=== PATIENT | female | born 1950 | race Caucasian/White ===

== ENCOUNTER 2020-01-22 07:59 | Outpatient (REF) | payer OTHER, SELFPAY ==
[2020-01-22 10:31] LABS: Cholesterol 199 mg/dL; HDL Cholesterol 58 mg/dL; LDL Cholesterol Calculated 121 mg/dl; Triglycerides 102 mg/dL
== END 2020-01-22 08:00 | disposition home or self-care (01) ==
LOC: HO.10HDL 07:59
PROVIDERS: Visit Provider Internal Medicine
DX: E78.5 Hyperlipidemia, unspecified (principal)
CPT/HCPCS: 80061; 84443

== ENCOUNTER 2020-05-04 08:17 | Outpatient (REF) | payer OTHER, SELFPAY ==
[2020-05-04 10:59] LABS: Thyroid Stimulating Hormone 4.64 uIU/mL (0.32-4.0)
[2020-05-04 12:40] LABS: Cholesterol 197 mg/dL; HDL Cholesterol 54 mg/dL; LDL Cholesterol Calculated 119 mg/dl; Triglycerides 120 mg/dL
== END 2020-05-04 08:18 | disposition home or self-care (01) ==
LOC: HO.10HDL 08:17
PROVIDERS: Visit Provider Internal Medicine
DX: E78.5 Hyperlipidemia, unspecified (principal)
CPT/HCPCS: 36415; 80061; 84443

== ENCOUNTER → 2020-05-22 08:00 | Outpatient (BNVA) | payer OTHER, SELFPAY | PROVIDERS: PCP Internal Medicine; Visit Provider Advanced Practice Midwife ==

== ENCOUNTER 2020-08-05 08:07 | Outpatient (REF) | payer OTHER, SELFPAY ==
[2020-08-05 10:47] LABS: Cholesterol 191 mg/dL; HDL Cholesterol 49 mg/dL; LDL Cholesterol Calculated 119 mg/dl; Triglycerides 115 mg/dL
[2020-08-05 11:09] LABS: Thyroid Stimulating Hormone 1.69 uIU/mL (0.32-4.0)
== END 2020-08-05 08:08 | disposition home or self-care (01) ==
LOC: HO.10HDL 08:07
PROVIDERS: Visit Provider Internal Medicine
DX: E11.9 Type 2 diabetes mellitus without complications (principal); E03.9 Hypothyroidism, unspecified
CPT/HCPCS: 36415; 80061; 84443

== ENCOUNTER 2020-08-10 11:09 | Outpatient (REF) | payer OTHER, SELFPAY ==
--- NOTE | ~2020-08-10 | XR_ITS ---
EXAMINATION: XR HIP, RIGHT CLINICAL INFORMATION: Pain COMPARISON: None TECHNIQUE: Two views of the right hip. FINDINGS: Bone alignment is normal. No fracture or dislocation is seen. There is mild arthritis of the right hip joint with small osteophytes. There is soft tissue calcification or ossification adjacent to the right greater trochanter. XR/XR hip RT min 2V IMPRESSION: Mild arthritis and soft tissue calcification or ossification adjacent to the right greater trochanter suggestive of changes related to old soft tissue trauma or calcific tendinitis.
== END 2020-08-10 11:10 | disposition home or self-care (01) ==
LOC: HO.XRAY 11:09
PROVIDERS: PCP Internal Medicine; Visit Provider Internal Medicine
DX: M25.551 Pain in right hip (principal)
CPT/HCPCS: 73502

== ENCOUNTER 2020-09-10 10:29 | Outpatient (REF) | payer OTHER, SELFPAY ==
--- NOTE | ~2020-09-10 | XR_ITS ---
EXAMINATION: XR PELVIS CLINICAL INFORMATION: Pain COMPARISON: 08/10/2020. TECHNIQUE: AP view of the pelvis. FINDINGS: No displaced fracture. Mild to moderate cartilage space loss in both hips with some mild bony spurring. Some calcific/ossific densities over the right greater trochanter, similar to prior which could represent sequelae of prior trauma or calcific tendinosis. XR/XR pelvis 1-2V IMPRESSION: Mild to moderate degenerative changes in both hips.
== END 2020-09-10 10:30 | disposition home or self-care (01) ==
LOC: HO.HOSX 10:29
PROVIDERS: Visit Provider Orthopaedic Surgery
DX: M76.891 Other specified enthesopathies of right lower limb, excluding foot (principal); M53.3 Sacrococcygeal disorders, not elsewhere classified; M25.551 Pain in right hip
CPT/HCPCS: 72170

== ENCOUNTER 2020-11-04 07:44 | Outpatient (REF) | payer OTHER, SELFPAY ==
[2020-11-04 10:24] LABS: MANUAL DIFF FLAG NO
[2020-11-04 10:28] LABS: Basophils Percent Auto 0.8 % (0-2); Eosinophils Absolute Auto 0.1 X10*3/uL (0.0-0.4); Eosinophils Percent Auto 1.9 % (0-4); Hematocrit 43.1 % (37-47); Hemoglobin 14.6 g/dl (12.0-16.0); Imm Gran Abs Auto 0.01 X10*3/uL (0.00-0.03); Imm Gran Pct Auto 0.2 % (0.0-0.4); Lymphocytes Absolute Auto 1.6 X10*3/uL (1.2-4.9); Lymphocytes Percent Auto 31.9 % (20-40); Mean Corpuscular HGB Conc 33.9 g/dl (31.0-35.0); Mean Corpuscular Hemoglobin 32.4 pg (27.0-33.0); Mean Corpuscular Volume 95.8 fL (80-98); Mean Platelet Volume 10.3 fL (9.4-12.3); Monocytes Absolute Auto 0.4 X10*3/uL (0.1-1.2); Neutrophils Absolute Auto 2.9 X10*3/uL (2.0-8.3); Neutrophils Percent Auto 57.2 % (45-73); Platelet Count 205 X10*3/uL (160-400); Red Cell Distribution Width 11.6 % (11.0-16.0); White Blood Count 5.1 X10*3/uL (4.8-10.8)
[2020-11-04 10:42] LABS: Alanine Aminotransferase 15 U/L (0-31); Albumin Level 4.1 g/dL (3.5-5.0); Alkaline Phosphatase 105 U/L (39-117); Anion Gap 11 (12-20); Aspartate Amino Transferase 22 U/L (5-31); Bilirubin Total 0.7 mg/dL (0.0-1.0); Blood Urea Nitrogen 16 mg/dL (9-16); Calcium 9.4 mg/dL (8.4-10.2); Carbon Dioxide 30 mmol/L (22-29); Chloride 104 mmol/L (96-108); Cholesterol 195 mg/dL; Estimated Glomerular Filt Rate > 60; Glucose Fasting 87 mg/dL (60-99); HDL Cholesterol 59 mg/dL; LDL Cholesterol Calculated 116 mg/dl; Potassium 4.7 mmol/L (3.3-5.1); Sodium 140 mmol/L (135-145); Total Protein 6.8 g/dL (6.5-8.0); Triglycerides 100 mg/dL
[2020-11-04 11:03] LABS: Thyroid Stimulating Hormone 1.85 uIU/mL (0.32-4.0)
== END 2020-11-04 07:45 | disposition home or self-care (01) ==
LOC: HO.10HDL 07:44
PROVIDERS: Visit Provider Internal Medicine
DX: Z00.00 Encounter for general adult medical examination without abnormal findings (principal); E03.9 Hypothyroidism, unspecified; E11.9 Type 2 diabetes mellitus without complications
CPT/HCPCS: 36415; 80053; 80061; 84443; 85025

== ENCOUNTER 2020-11-17 11:00 | Outpatient (RCR) | payer OTHER, SELFPAY ==
--- NOTE | 2020-09-25 09:22 | MHC.PT.EP ---
[facility] [place] Office [place] Office [place] Office [address] Miguel Ramirez [address] [phone] F: [phone] F: [phone] F: [phone] F: [phone] Physical Therapy Plan of Care Date of Evaluation: Date of Surgery: N/A Diagnosis: sacroiliitis Assessment: pt's pain appears to be related d/t poor pelvic alignment and muscular imbalance causing SI dysfunction and pain. pt presents to physical therapy with pain, decreased range of motion, decreased strength, impaired functional mobility, impaired postural awareness, and gait deviations. pt is a good candidate for skilled PT due to age, potential remediation of impairments, typical disease/condition progression and prognosis, comorbidities, and motivation. pt would benefit from tailored strengthening and stretching exercise program, functional training, gait training, postural re-training, neuromuscular re-education, modalities as needed for pain, equipment safety demonstration. Frequency and Duration: The patient will be seen 2x/wk for 4 wks Short Term Goals: pt will be I w/ HEP to promote self-management of condition. pt will improve L hip flexion strength by 1 MMT grade to promote ease in ascending stairs. Alf Goals: pt will ascend/descend 13 stairs w/ <1/10 R SI pain w/ LRAD to promote ease in accessing basement for laundry. pt will report a statistically significant improvement in self-reported outcome measure, Merle, to promote return to PLOF. Treatment Plan: Modalities to reduce pain, spasms and effusion. Manual therapy to restore motion and function. Therapeutic exercise to improve strength and flexibility. Neuromuscular re-education for posture and balance. Therapeutic activities to return to functional activities of daily living. Electronically signed by: Margie Roque PT, DPT Please sign and return to therapist. Thank you for your referral.
--- NOTE | 2020-11-17 13:53 | MHC.PT.DC ---
[facility] [place] Office [place] Office [place] Office [address] 140 [facility] [phone] F: [phone] F: [phone] F: [phone] F: [phone] Physical Therapy Discharge Report Diagnosis: sacroiliitis Date of Surgery: N/A Date of Evaluation: 09/25/20 Date of Discharge: 11/17/20 Treatments to Date: 14 Cancellations to Date: 2 No Shows to Date: 0 Discharge Status: Improved Function Independent with HEP Discharge Summary: The patient overall reports an improvement in her pain severity, frequency, and ability to tolerate 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 She is able to ambulate longer distances without pain. She still has some pain provocation with lifting heavier objects and garden care activities. She is independent with her home exercise program. She was advised to continue with HEP at home for one month and to return if she finds she has plateaued or regressed. She is discharged from this physical therapy plan of care at this time. Electronically signed by: Margie Roque PT, DPT Please sign and return to therapist. Thank you for your referral.
== END 2020-11-17 13:54 | disposition home or self-care (01) ==
LOC: HO.PT 11:00
PROVIDERS: PCP Internal Medicine; Visit Provider Orthopaedic Surgery
DX: M46.1 Sacroiliitis, not elsewhere classified (principal); M76.891 Other specified enthesopathies of right lower limb, excluding foot; M70.60 Trochanteric bursitis, unspecified hip; M67.959 Unspecified disorder of synovium and tendon, unspecified thigh; M25.559 Pain in unspecified hip
CPT/HCPCS: 97110; 97112; 97140; 97162; 97164; 97530

== ENCOUNTER 2021-02-04 07:56 | Outpatient (REF) | payer OTHER, SELFPAY ==
[2021-02-04 11:46] LABS: Alanine Aminotransferase 19 U/L (0-31); Albumin Level 4.4 g/dL (3.5-5.0); Alkaline Phosphatase 98 U/L (39-117); Anion Gap 13 (12-20); Aspartate Amino Transferase 26 U/L (5-31); Bilirubin Total 0.7 mg/dL (0.0-1.0); Blood Urea Nitrogen 14 mg/dL (9-16); Calcium 9.4 mg/dL (8.4-10.2); Carbon Dioxide 28 mmol/L (22-29); Chloride 105 mmol/L (96-108); Cholesterol 199 mg/dL; Estimated Glomerular Filt Rate > 60; Glucose Fasting 87 mg/dL (60-99); HDL Cholesterol 60 mg/dL; LDL Cholesterol Calculated 119 mg/dl; Potassium 4.8 mmol/L (3.3-5.1); Sodium 141 mmol/L (135-145); Total Protein 7.2 g/dL (6.5-8.0); Triglycerides 100 mg/dL
== END 2021-02-04 07:57 | disposition home or self-care (01) ==
LOC: HO.10HDL 07:56
PROVIDERS: Visit Provider Internal Medicine
DX: E11.9 Type 2 diabetes mellitus without complications (principal)
CPT/HCPCS: 36415; 80053; 80061

== ENCOUNTER 2021-02-10 14:34 | Outpatient (REF) | payer OTHER, SELFPAY ==
--- NOTE | ~2021-02-10 | XR_ITS ---
EXAMINATION: XR CERVICAL SPINE CLINICAL INFORMATION: Cervicalgia COMPARISON: None TECHNIQUE: 3 views of the cervical spine were obtained. FINDINGS: There is no acute fracture or subluxation. Slight anterolisthesis of C4 on C5. Slight retrolisthesis of C5 on C6. These findings appear degenerative. Disc space narrowing at C5-C6 and C6-C7 with endplate sclerosis and osteophyte formation. The atlantoaxial joint appears aligned. The dens is intact. The prevertebral soft tissues are unremarkable. The visualized lung apices are clear. XR/XR cervical spine 3V IMPRESSION: Mild to moderate degenerative changes of the mid to lower cervical spine.
== END 2021-02-10 14:35 | disposition home or self-care (01) ==
LOC: HO.XRAY 14:34
PROVIDERS: PCP Internal Medicine; Visit Provider Internal Medicine
DX: M54.2 Cervicalgia (principal)
CPT/HCPCS: 72040

== ENCOUNTER 2021-04-30 07:36 | Outpatient (REF) | payer OTHER, SELFPAY ==
[2021-04-30 10:27] LABS: Cholesterol 191 mg/dL; Triglycerides 84 mg/dL
[2021-04-30 10:37] LABS: HDL Cholesterol 53 mg/dL; LDL Cholesterol Calculated 122 mg/dl
[2021-04-30 11:00] LABS: Thyroid Stimulating Hormone 2.82 uIU/mL (0.32-4.0)
== END 2021-04-30 07:37 | disposition home or self-care (01) ==
LOC: HO.10HDL 07:36
PROVIDERS: Visit Provider Internal Medicine
DX: Z00.00 Encounter for general adult medical examination without abnormal findings (principal)
CPT/HCPCS: 36415; 80061; 84443

== ENCOUNTER 2021-05-12 16:26 | Outpatient (REF) | payer OTHER, SELFPAY ==
--- NOTE | ~2021-05-12 | US_ITS ---
EXAMINATION: US RETROPERITONEAL LIMITED (RENAL ONLY) CLINICAL INFORMATION: Cyst of kidney, acquired. COMPARISON: Renal ultrasound 03/18/2019 and 03/19/2018. CT abdomen 09/07/2006. TECHNIQUE: Real-time imaging of the kidneys. FINDINGS: RIGHT KIDNEY: 12.2 x 6.2 x 9.1 cm (SAG x AP x TRV). There is severe right hydronephrosis. The right renal pelvis is markedly dilated and appearance is questionable for a right UPJ obstruction. This appears increased from March 2019 exam. There is right renal cortical thinning suggestive of long-standing obstruction. There may be increased right renal cortical echogenicity. No stone or mass is seen. The previously identified right upper pole renal cyst is not appreciated. LEFT KIDNEY: 12.9 x 4.6 x 5.7 cm (SAG x AP x TRV). The kidney is normal in size, contour, and echogenicity. Renal cortical thickness is normal. No calculi or focal parenchymal lesions. There is question of mild left hydronephrosis versus extrarenal pelvis. This is similar to previous exams. No stone or mass is seen. US/US renal BI IMPRESSION: Severe right hydronephrosis and right renal cortical thinning suggestive of long-standing obstruction. This appears increased from most recent exam March 2019. Appearance is questionable for a right UPJ obstruction. Question mild left hydronephrosis versus extrarenal pelvis. This is similar to previous exams.
== END 2021-05-12 16:27 | disposition home or self-care (01) ==
LOC: HO.US 16:26
PROVIDERS: Visit Provider Urology
DX: N28.1 Cyst of kidney, acquired (principal)
CPT/HCPCS: 76775

== ENCOUNTER → 2021-05-18 12:01 | Outpatient (BNVA) | payer OTHER, SELFPAY | PROVIDERS: PCP Internal Medicine ==

== ENCOUNTER → 2021-05-26 09:28 | Outpatient (BNVA) | payer OTHER, SELFPAY | PROVIDERS: PCP Internal Medicine; Visit Provider Advanced Practice Midwife ==

== ENCOUNTER 2021-06-03 09:00 | Outpatient (RCR) | payer OTHER, SELFPAY ==
[2021-04-28 09:06] VITALS: BP 149/67; PULSE 85
--- NOTE | 2021-04-28 10:06 | MHC.PT.EP ---
[facility] [place] Office [place] Office [place] Office [address] Ramirez [address] [phone] F: [phone] F: [phone] F: [phone] F: [phone] Physical Therapy Plan of Care Date of Evaluation: Date of Surgery: NA Diagnosis: Strain of the muscle fascia and tendon at neck level, initial encounter Assessment: Melonie is a 70 year old female referred for PT for strain of muscle fascia and tendon at neck level . She reports of having sudden onset neck pain about 3 months back following a fall. Her pain got worse while she was moving boxes a month later. On PT examination she presented with TTP over L UT, 4/10 pain with neck movements and carrying weights, decreased muscle strength, and impaired posture. Due to these impairments she has difficulty with ADLS requiring her to carry weights. She would benefit from skilled PT to address the aforementioned impairments and improve tolerance to ADLS. Frequency and Duration: The patient will be seen 2/week for 4 weeks Short Term Goals: 1. Pt will have 50% decrease in pain which will enable her to read without pain in 2 weeks. 2. Pt will be able to move her neck through all planes of motion without pain which will enable her to drive without pain in 3 weeks. 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 Pt will demonstrate an increase in muscle strength by 1 grade which will enable her to carrying weights for ADLs in 4 weeks. 2. Pt will be independent with [facility] for symptom management and maintenance following d/c in 4 weeks. Treatment Plan: Modalities to reduce pain, spasms and effusion. Manual therapy to restore motion and function. Therapeutic exercise to improve strength and flexibility. Neuromuscular re-education for posture and balance. Therapeutic activities to return to functional activities of daily living. Electronically signed by: Dian Ann PT DPT Please sign and return to therapist. Thank you for your referral.
--- NOTE | 2021-06-03 10:03 | MHC.PT.DC ---
[facility] [place] Office [place] Office [place] Office [address] Miguel Ramirez 140 [facility] [phone] F: [phone] F: [phone] F: [phone] F: [phone] Physical Therapy Discharge Report Diagnosis: Strain of the muscle fascia and tendon at neck level, initial encounter Date of Surgery: NA Date of Evaluation: 04/28/21 Date of Discharge: 06/03/21 Treatments to Date: 10 Cancellations to Date: 0 No Shows to Date: 0 Discharge Status: Achieved Goals Improved Function Discharge Summary: Melonie has improved and is independent with all HEPs. She is therefore being d/c from therapy today. Electronically signed by: Dian Ann PT DPT Please sign and return to therapist. Thank you for your referral.
== END 2021-06-03 10:04 | disposition home or self-care (01) ==
LOC: HO.PT 09:00
PROVIDERS: PCP Internal Medicine; Visit Provider Internal Medicine
DX: S16.1XXD Strain of muscle, fascia and tendon at neck level, subsequent encounter (principal)
CPT/HCPCS: 97110; 97140; 97161; 97530

== ENCOUNTER 2021-07-27 10:00 | Outpatient (REF) | payer OTHER, SELFPAY ==
[2021-07-27 10:52] LABS: D Dimer High Sensitivity 380 NG/ML
[2021-07-27 11:18] LABS: Cholesterol 183 mg/dL; HDL Cholesterol 51 mg/dL; LDL Cholesterol Calculated 108 mg/dl; Triglycerides 124 mg/dL
[2021-07-27 11:31] LABS: Thyroid Stimulating Hormone 2.63 uIU/mL (0.32-4.0)
== END 2021-07-27 10:01 | disposition home or self-care (01) ==
LOC: HO.LAB 10:00
PROVIDERS: PCP Internal Medicine; Visit Provider Internal Medicine
DX: Z00.00 Encounter for general adult medical examination without abnormal findings (principal); R55 Syncope and collapse
CPT/HCPCS: 36415; 80061; 84443; 85379

== ENCOUNTER 2021-11-01 08:32 | Outpatient (REF) | payer OTHER, SELFPAY ==
[2021-11-01 11:27] LABS: Cholesterol 180 mg/dL; HDL Cholesterol 59 mg/dL; LDL Cholesterol Calculated 105 mg/dl; Triglycerides 83 mg/dL
[2021-11-01 11:50] LABS: Thyroid Stimulating Hormone 1.91 uIU/mL (0.32-4.0)
== END 2021-11-01 08:33 | disposition home or self-care (01) ==
LOC: HO.10HDL 08:32
PROVIDERS: Visit Provider Internal Medicine
DX: Z00.00 Encounter for general adult medical examination without abnormal findings (principal); E78.5 Hyperlipidemia, unspecified; E03.9 Hypothyroidism, unspecified
CPT/HCPCS: 36415; 80061; 84443

== ENCOUNTER 2022-02-07 07:54 | Outpatient (REF) | payer OTHER, SELFPAY ==
[2022-02-07 11:15] LABS: Cholesterol 183 mg/dL; HDL Cholesterol 59 mg/dL; LDL Cholesterol Calculated 103 mg/dl; Triglycerides 108 mg/dL
[2022-02-07 11:42] LABS: Thyroid Stimulating Hormone 2.26 uIU/mL (0.32-4.0)
== END 2022-02-07 07:55 | disposition home or self-care (01) ==
LOC: HO.10HDL 07:54
PROVIDERS: Visit Provider Internal Medicine
DX: E03.9 Hypothyroidism, unspecified (principal); E78.5 Hyperlipidemia, unspecified
CPT/HCPCS: 36415; 80061; 84443

== ENCOUNTER 2022-05-16 07:48 | Outpatient (REF) | payer OTHER, SELFPAY ==
[2022-05-16 11:32] LABS: Cholesterol 189 mg/dL; HDL Cholesterol 55 mg/dL; LDL Cholesterol Calculated 118 mg/dl; Thyroid Stimulating Hormone 2.81 uIU/mL (0.32-4.0); Triglycerides 83 mg/dL
== END 2022-05-16 07:49 | disposition home or self-care (01) ==
LOC: HO.10HDL 07:48
PROVIDERS: Visit Provider Internal Medicine
DX: E03.9 Hypothyroidism, unspecified (principal); E78.5 Hyperlipidemia, unspecified
CPT/HCPCS: 36415; 80061; 84443

== ENCOUNTER 2022-05-19 13:56 | Outpatient (REF) | payer OTHER, SELFPAY ==
--- NOTE | ~2022-05-19 | US_ITS ---
EXAMINATION: US RETROPERITONEAL LIMITED (RENAL ONLY) CLINICAL INFORMATION: Renal cyst. COMPARISON: Ultrasound renal 05/12/2021. Ultrasound renal 03/18/2019. CT abdomen 09/07/2006. TECHNIQUE: Real-time imaging of the kidneys. FINDINGS: RIGHT KIDNEY: 9.1 x 4.8 x 6.1 cm (SAG x AP x TRV). The kidney is normal in size, contour, and echogenicity. Renal cortical thickness is normal. No renal calculi. There is pelvocaliectasis and dilated right renal pelvis with appearances consistent with congenital UPJ obstruction. Similar findings could be seen on the 09/07/2006 CT scan. When comparison is made to the prior ultrasound from 05/12/2021, the size of the renal pelvis has decreased. LEFT KIDNEY: 13.4 x 4.5 x 6.2 cm (SAG x AP x TRV). The kidney is normal in size, contour, and echogenicity. Renal cortical thickness is normal. No calculi or focal parenchymal lesions. No hydronephrosis. US/US renal BI IMPRESSION: Right-sided pelvocaliectasis with appearances consistent with congenital UPJ obstruction.
== END 2022-05-19 13:57 | disposition home or self-care (01) ==
LOC: HO.HMGCX 13:56
PROVIDERS: PCP Nurse Practitioner Family; Visit Provider Urology
DX: N28.1 Cyst of kidney, acquired (principal); N13.30 Unspecified hydronephrosis
CPT/HCPCS: 76775

== ENCOUNTER → 2022-05-30 09:29 | Outpatient (BNVA) | payer OTHER, SELFPAY | PROVIDERS: PCP Internal Medicine; Visit Provider Advanced Practice Midwife | DX: Z13.89 Encounter for screening for other disorder (principal) ==

== ENCOUNTER → 2022-05-31 08:58 | Outpatient (BNVA) | payer OTHER, SELFPAY | PROVIDERS: PCP Internal Medicine; Visit Provider Urology | DX: Z13.89 Encounter for screening for other disorder (principal) ==

== ENCOUNTER 2022-06-10 11:10 | Outpatient (REF) | payer OTHER, SELFPAY ==
--- NOTE | ~2022-06-10 | US_ITS ---
EXAMINATION: US PELVIS COMPLETE CLINICAL INFORMATION: Leiomyoma; postmenopausal patient. COMPARISON: Pelvic ultrasound dated 01/18/2013. TECHNIQUE: Transabdominal and transvaginal imaging were performed. FINDINGS: The uterus is of normal size and echogenicity, measuring 8.2 x 6.8 x 8.3 cm. The uterus is retroverted and retroflexed. The endometrial stripe is obscured by uterine fibroid disease. FIBROIDS: There is 1 fibroid seen. 1. Location: Upper body. Size: 5.8 x 5.2 x 7.3 cm. Prior: 6.6 x 7.1 x 7.3 cm. Fibroid characteristics: Heterogeneous echotexture. Both ovaries are nonvisualized. There is no pelvic free fluid. No adnexal mass is seen. US/US pelvic and transvaginal IMPRESSION: 1. There is uterine fibroid disease. 2. The ovaries are nonvisualized.
== END 2022-06-10 11:11 | disposition home or self-care (01) ==
LOC: HO.US 11:10
PROVIDERS: Visit Provider Advanced Practice Midwife
DX: D25.9 Leiomyoma of uterus, unspecified (principal); N85.2 Hypertrophy of uterus
CPT/HCPCS: 76830; 76856

== ENCOUNTER → 2022-06-24 10:39 | Outpatient (BNVA) | payer OTHER, SELFPAY | PROVIDERS: PCP Internal Medicine; Visit Provider Advanced Practice Midwife | DX: Z13.89 Encounter for screening for other disorder (principal) ==

== ENCOUNTER 2022-09-13 12:03 | Outpatient (REF) | payer OTHER, SELFPAY ==
[2022-09-13 13:49] LABS: Cholesterol 181 mg/dL; HDL Cholesterol 57 mg/dL; LDL Cholesterol Calculated 108 mg/dl; Triglycerides 82 mg/dL
[2022-09-13 14:04] LABS: Thyroid Stimulating Hormone 1.43 uIU/mL (0.32-4.0)
== END 2022-09-13 12:04 | disposition home or self-care (01) ==
LOC: HO.10HDL 12:03
PROVIDERS: Visit Provider Internal Medicine
DX: E03.9 Hypothyroidism, unspecified (principal); E78.5 Hyperlipidemia, unspecified
CPT/HCPCS: 36415; 80061; 84443

== ENCOUNTER 2022-12-30 08:33 | Outpatient (REF) | payer OTHER, SELFPAY ==
[2022-12-30 11:40] LABS: Cholesterol 187 mg/dL (<200); HDL Cholesterol 54 mg/dL (>40); LDL Cholesterol Calculated 114 mg/dL (<100); Triglycerides 98 mg/dL (<150)
[2022-12-30 12:03] LABS: Thyroid Stimulating Hormone 2.58 uIU/mL (0.32-4.0)
== END 2022-12-30 08:34 | disposition home or self-care (01) ==
LOC: HO.10HDL 08:33
PROVIDERS: Visit Provider Internal Medicine
DX: E03.9 Hypothyroidism, unspecified (principal); E78.5 Hyperlipidemia, unspecified
CPT/HCPCS: 36415; 80061; 84443

== ENCOUNTER 2023-01-03 10:38 | Outpatient (AMB) | payer OTHER, SELFPAY ==
--- NOTE | 2023-01-03 10:42 | MHC.PC.OV ---
Vital Signs 01/03/23 10:43 Height 5 ft 5.5 in Weight 137 lb BMI 22.4 BP 140/74 H Blood Pressure Location Lt brachial Position Sitting Pulse 90 Pulse Source Pulse Oximeter Oxygen Delivery Method Room Air Intake Visit Reasons: 3 MONTH F/U Pharmaceutical Botanist: Not Required per policy Accompanied by: Self / Same As Patient Allergies amoxicillin [AMOXICILLIN] Allergy (Mild, Verified 01/03/23 10:43) DIARRHEA aspirin [Aspirin] Allergy (Mild, Verified 01/03/23 10:43) UPSET STOMACH azithromycin [From Zithromax] Adverse Reaction (Mild, Verified 01/03/23 10:43) DIARRHEA ibuprofen [From ADVIL] Adverse Reaction (Mild, Verified 01/03/23 10:43) GI UPSET oxycodone [From PERCOCET] Adverse Reaction (Mild, Verified 01/03/23 10:43) CAUSES LOOPINESS Medication List - Last Reconciled 01/03/23 by Dontae Nelson MD amlodipine 5 mg PO DAILY atorvastatin 40 mg PO DAILY cyclobenzaprine 10 mg PO TID PRN fluticasone propionate 50 mcg/actuation 1 spray intranasal DAILY levothyroxine 50 mcg PO DAILY tizanidine 4 mg PO Q8H PRN Tobacco use date assessed: 05/20/22 Fall risk assessment: No Falls in past year Last assessed Fall Risk: 01/03/23 Dental Screening Dental Screen Date: 01/03/23 Did you have a dental visit in the last 12 months?: Yes Did you have a dental problem in the last 6 months where you did not have access to dental care?: No Was dental information given to patient?: Patient has dentist HPI 3 MONTH F/U HPI Details htn hyperlip and hypothyroidism; doing well; compliant [facility] Medical History Hydronephrosis Cyst of kidney, acquired Tendinitis involving right hip abductors Hypothyroidism Surgical History History of dental surgery History of cataract surgery History of knee surgery History of renal stent History of hysteroscopy History of lumpectomy of right breast Family History Father Diabetes CVD (cardiovascular disease) Hypertension Heart disease Mother Breast cancer Colon cancer Sister No problems noted. Family/Other Ovarian cancer Social History Housing: House Alcohol intake: current Alcohol intake frequency: holidays/special occasions only Patient Tobacco Use Status: Never used Tobacco e-Cigarette/Vaping Use: Never Used Second Hand Smoke Exposure: No Advance Directives Date on File: 01/22/20 service: No Current occupational status: retired Cognitive needs: No Hearing needs: No Vision needs: Yes Questionnaire PHQ-9 Over the last 2 weeks, how often have you been bothered by any of the following problems? 1. Little interest or pleasure in doing things: several days 2. Feeling down, depressed, or hopeless: several days 3. Trouble falling or staying asleep, or sleeping too much: several days 4. Feeling tired or having little energy: several days 5. Poor appetite or overeating: several days 6. Feeling bad about yourself - or that you are a failure or have let yourself or your family down: several days 7. Trouble concentrating on things, such as reading the newspaper or watching television: several days 8. Moving or speaking so slowly that other people could have noticed. Or the opposite - being so fidgety or restless that you have been moving around a lot more than usual: several days 9. Thoughts that you would be better off or of hurting yourself in some way: several days Total score: 9 Depression Screening Interpretation: Negative Source: Developed by Drs. Maxim Solares, Aileen Leblanc, Bang Lawton and colleagues, with an educational belle from [employer]. Thrive Questionnaire Date Thrive assessed: 01/03/23 I am a: Patient What is your living situation today?: I have a steady place to live Within the past 12 months, did the food you bought not last and you didn't have the money to get more?: Never true Within the past 12 months, did you worry whether your food would run out before you got money to buy more?: Never true Do you have trouble paying for medicines?: No Do you have trouble getting transportation to medical appointments?: No Do you have trouble paying your heating and electricity bill?: No Do you have trouble taking care of your child, family member or friend?: No Do you have trouble with day-to-day activities such as bathing, preparing meals, shopping, managing finances, etc.?: No Are you currently unemployed and looking for a job?: No Are you interested in more education?: No Please select the resources that you would like help with: None AUDIT C Alcohol Use Questionnaire (AUDIT-C) 1. How often do you have a drink containing alcohol?: 2-3 times a week 2. How many drinks containing alcohol do you have on a typical day when you are drinking?: 1 or 2 3. How often do you have six or more drinks on one occasion?: Never Total Score: 3 Score Reviewed/Action Taken: Yes TRICIA-7 AMB Questionnaire TRICIA-7 Date TRICIA - 7 assessed: 01/03/23 Feeling nervous, anxious, or on edge: 0 = Not at all Not being able to stop or control worryin = Not at all Worrying too much about different things: 0 = Not at all Trouble relaxin = Not at all Being so restless that it is hard to sit still: 0 = Not at all Becoming easily annoyed or irritable: 0 = Not at all Feeling afraid as if something awful might happen: 0 = Not at all Total TRICIA-7 score (0-4 normal; 5-9 mild; 10-14 moderate; 15-21 severe): 0 Source: Developed by Drs. Maxim Solares, Aileen Leblanc, Bang Lawton and colleagues, with an educational belle from [employer]. Review of Systems Const Denies chills, Denies headache(s) and Denies weight loss ENT Denies headache(s) Card Denies chest pain, Denies syncope, Denies irregular heart rhythm and Denies dyspnea Resp Denies chest congestion, Denies cough and Denies dyspnea GI Denies abdominal pain, Denies change in stool character, Denies nausea and Denies vomiting Musc Denies deformity and Denies joint swelling Neuro Denies syncope and Denies headache(s) Physical exam (Primary Care) Vital Signs: Last Vital Signs Pulse 90 01/03/23 10:43 BP 140/74 H 01/03/23 10:43 Oxygen Delivery Method Room Air 01/03/23 10:43 BMI result Body Mass Index 22.4 Tobacco/Smoking Status: Tobacco use Status Tobacco use date assessed 05/20/22 01/03/23 10:47 Patient Tobacco Use Status Never used Tobacco 01/03/23 10:47 e-Cigarette/Vaping Use Never Used 01/03/23 10:47 PHQ-9: PHQ-9 Score PHQ-9: Total score 9 01/03/23 10:47 Depression Screening Interpretation: Negative Thrive Assessment: Date of Thrive Assessment Date Thrive assessed 01/03/23 01/03/23 10:47 Const General: cooperative, comfortable, no acute distress and alert Neck Neck: Yes no lymphadenopathy Thyroid: Thyroid normal Resp Effort & Inspection: normal respiratory effort Auscultation: clear to auscultation bilaterally Percussion: percussion normal Cardio Jugular venous distension: no JVD Palpation: normal PMI Rate: regular rate Rhythm: regular rhythm Heart sounds: S1 normal heart sound present and S2 normal heart sound present GI Inspection: Yes normal to inspection Palpation (GI): No hepatosplenomegaly present Skin General skin exam: no rashes or lesions noted Extrem General: Yes no clubbing, cyanosis or edema Assessment and Plan Assessment & Plan (1) Hypothyroidism: Code(s): E03.9 - Hypothyroidism, unspecified Plan: stable; same rx (2) Hyperlipidemia: Code(s): E78.5 - Hyperlipidemia, unspecified Plan: stable; same rx (3) Hypertension: Code(s): I10 - Essential (primary) hypertension Plan: stable; same rx Orders: Orders Complete Blood Count Auto Diff Today D64.9 - Anemia, unspecified Comprehensive [place]. Panel Fast Today N28.9 - Disorder of kidney and ureter, unspecified Lipid Panel Today E78.5 - Hyperlipidemia, unspecified Thyroid Stimulating Hormone Today E03.9 - Hypothyroidism, unspecified Coding Level of Care Code Est Pt Level 4 (55914) Diagnoses Hypothyroidism E03.9 Hyperlipidemia E78.5 Hypertension I10 Additional Codes PHQ-9 - 15956 - PHQ-9 Billing: ([id number])
[2023-01-03 10:43] VITALS: BP 140/74; PULSE 90; BMI 22.4
== END 2023-01-03 11:03 | disposition home or self-care (01) ==
PROVIDERS: PCP Internal Medicine; Visit Provider Internal Medicine
DX: E03.9 Hypothyroidism, unspecified (principal); E78.5 Hyperlipidemia, unspecified; I10 Essential (primary) hypertension
CPT/HCPCS: 99214

== ENCOUNTER 2023-04-03 08:20 | Outpatient (REF) | payer OTHER, SELFPAY ==
[2023-04-03 10:48] LABS: MANUAL DIFF FLAG NO
[2023-04-03 10:51] LABS: Basophils Absolute Auto 0.1 X10*3/uL (0.0-0.2); Basophils Percent Auto 1.1 % (0-2); Eosinophils Absolute Auto 0.1 X10*3/uL (0.0-0.4); Eosinophils Percent Auto 2.9 % (0-4); Hematocrit 45.7 % (37.0-47.0); Hemoglobin 15.6 g/dl (12.0-16.0); Lymphocytes Absolute Auto 1.9 X10*3/uL (1.2-4.9); Lymphocytes Percent Auto 41.6 % (20-40); Mean Corpuscular HGB Conc 34.1 g/dl (31.0-35.0); Mean Corpuscular Hemoglobin 32.4 pg (27.0-33.0); Mean Platelet Volume 9.9 fL (9.4-12.3); Monocytes Absolute Auto 0.4 X10*3/uL (0.1-1.2); Monocytes Percent Auto 8.3 % (2-11); Neutrophils Absolute Auto 2.1 x10*3/uL (2.0-8.3); Neutrophils Percent Auto 46.1 % (45-73); Platelet Count 235 X10*3/uL (160-400); Red Blood Count 4.81 X10*6/uL (4.20-5.50); Red Cell Distribution Width 11.6 % (11.0-16.0); White Blood Count 4.5 X10*3/uL (4.8-10.8)
[2023-04-03 11:07] LABS: Alanine Aminotransferase 23 U/L (0-31); Albumin Level 4.1 g/dL (3.5-5.0); Alkaline Phosphatase 99 U/L (39-117); Anion Gap 11 (12-20); Aspartate Amino Transferase 28 U/L (5-31); Bilirubin Total 0.6 mg/dL (0.0-1.0); Blood Urea Nitrogen 15 mg/dL (9-16); Calcium 9.6 mg/dL (8.4-10.2); Carbon Dioxide 28 mmol/L (22-29); Chloride 105 mmol/L (96-108); Cholesterol 182 mg/dL (<200); Estimated Glomerular Filt Rate > 60; Glucose Fasting 87 mg/dL (60-99); HDL Cholesterol 57 mg/dL (>40); LDL Cholesterol Calculated 104 mg/dL (<100); Potassium 4.2 mmol/L (3.3-5.1); Sodium 140 mmol/L (135-145); Total Protein 7.2 g/dL (6.5-8.0); Triglycerides 108 mg/dL (<150)
[2023-04-03 11:24] LABS: Thyroid Stimulating Hormone 1.88 uIU/mL (0.32-4.0)
== END 2023-04-03 08:21 | disposition home or self-care (01) ==
LOC: HO.10HDL 08:20
PROVIDERS: Visit Provider Internal Medicine
DX: E78.5 Hyperlipidemia, unspecified (principal); N28.9 Disorder of kidney and ureter, unspecified; E03.9 Hypothyroidism, unspecified; D64.9 Anemia, unspecified
CPT/HCPCS: 36415; 80053; 80061; 84443; 85025

== ENCOUNTER 2023-04-05 09:17 | Outpatient (AMB) | payer OTHER, SELFPAY ==
[2023-04-05 09:19] VITALS: BP 120/82; PULSE 100; O2SAT 98; BMI 22.3
--- NOTE | 2023-04-05 09:19 | MHC.PC.OV ---
Vital Signs 04/05/23 09:19 Height 5 ft 5.5 in Weight 136 lb BMI 22.3 BP 120/82 Blood Pressure Location Lt brachial Position Sitting Pulse 100 Pulse Source Pulse Oximeter Pulse Oximetry (%) 98 Oxygen Delivery Method Room Air Intake Visit Reasons: 3mth f/u Manager Of Radiology Required: No Stogy Roller: Not Required per policy Accompanied by: Self / Same As Patient Allergies amoxicillin [AMOXICILLIN] Allergy (Mild, Verified 04/05/23 09:19) DIARRHEA aspirin [Aspirin] Allergy (Mild, Verified 04/05/23 09:19) UPSET STOMACH azithromycin [From Zithromax] Adverse Reaction (Mild, Verified 04/05/23 09:19) DIARRHEA ibuprofen [From ADVIL] Adverse Reaction (Mild, Verified 04/05/23 09:19) GI UPSET oxycodone [From PERCOCET] Adverse Reaction (Mild, Verified 04/05/23 09:19) CAUSES LOOPINESS Medication List - Last Reconciled 04/05/23 by Dontae Nelson MD amlodipine 5 mg PO DAILY atorvastatin 40 mg PO DAILY cyclobenzaprine 10 mg PO TID PRN fluticasone propionate 50 mcg/actuation 1 spray intranasal DAILY levothyroxine 50 mcg PO DAILY Tobacco use date assessed: 05/20/22 Fall risk assessment: No Falls in past year Last assessed Fall Risk: 04/05/23 Dental Screening Dental Screen Date: 04/05/23 Did you have a dental visit in the last 12 months?: Yes Did you have a dental problem in the last 6 months where you did not have access to dental care?: No Was dental information given to patient?: Patient has dentist HPI 3mth f/u HPI Details htn hyperlip and hypothyr on rx; doing well PFSH Medical History Hydronephrosis Cyst of kidney, acquired Tendinitis involving right hip abductors Hypothyroidism Surgical History History of dental surgery History of cataract surgery History of knee surgery History of renal stent History of hysteroscopy History of lumpectomy of right breast Family History Father Diabetes CVD (cardiovascular disease) Hypertension Heart disease Mother Breast cancer Colon cancer Sister No problems noted. Family/Other Ovarian cancer Social History Housing: House Alcohol intake: current Alcohol intake frequency: holidays/special occasions only Patient Tobacco Use Status: Never used Tobacco e-Cigarette/Vaping Use: Never Used Second Hand Smoke Exposure: No Advance Directives Date on File: 01/22/20 service: No Current occupational status: retired Cognitive needs: No Hearing needs: No Vision needs: Yes Questionnaire Thrive Questionnaire Date Thrive assessed: 01/03/23 TRICIA-7 AMB Questionnaire TRICIA-7 Date TRICIA - 7 assessed: 01/03/23 Source: Developed by Drs. Maxim Solares, Aileen Leblanc, Bang Lawton and colleagues, with an educational belle from [employer]. Review of Systems Const Denies chills, Denies headache(s) and Denies weight loss ENT Denies headache(s) Card Denies chest pain, Denies syncope, Denies irregular heart rhythm and Denies dyspnea Resp Denies chest congestion, Denies cough and Denies dyspnea GI Denies abdominal pain, Denies change in stool character, Denies nausea and Denies vomiting Musc Denies deformity and Denies joint swelling Neuro Denies syncope and Denies headache(s) Physical exam (Primary Care) Vital Signs: Last Vital Signs Pulse 100 04/05/23 09:19 BP 120/82 04/05/23 09:19 Pulse Ox 98 04/05/23 09:19 Oxygen Delivery Method Room Air 04/05/23 09:19 BMI result Body Mass Index 22.3 Tobacco/Smoking Status: Tobacco use Status Tobacco use date assessed 05/20/22 04/05/23 09:20 Patient Tobacco Use Status Never used Tobacco 04/05/23 09:20 e-Cigarette/Vaping Use Never Used 04/05/23 09:20 Thrive Assessment: Date of Thrive Assessment Date Thrive assessed 01/03/23 04/05/23 09:20 Const General: cooperative, comfortable, no acute distress and alert Neck Neck: Yes no lymphadenopathy Thyroid: Thyroid normal Resp Effort & Inspection: normal respiratory effort Auscultation: clear to auscultation bilaterally Percussion: percussion normal Cardio Jugular venous distension: no JVD Palpation: normal PMI Rate: regular rate Rhythm: regular rhythm Heart sounds: S1 normal heart sound present and S2 normal heart sound present GI Inspection: Yes normal to inspection Palpation (GI): No hepatosplenomegaly present Skin General skin exam: no rashes or lesions noted Extrem General: Yes no clubbing, cyanosis or edema Assessment and Plan Assessment & Plan (1) Hypothyroidism: Code(s): E03.9 - Hypothyroidism, unspecified Plan: stable; same rx (2) Hyperlipidemia: Code(s): E78.5 - Hyperlipidemia, unspecified Plan: stable; same rx (3) Hypertension: Code(s): I10 - Essential (primary) hypertension Plan: stable; same rx Orders: Orders Lipid Panel Today E78.5 - Hyperlipidemia, unspecified Thyroid Stimulating Hormone Today E03.9 - Hypothyroidism, unspecified Referrals Ear/Nose/Throat Referral H61.20 - Impacted cerumen, unspecified ear Coding Level of Care Code Est Pt Level 4 (00302) Diagnoses Hypothyroidism E03.9 Hyperlipidemia E78.5 Hypertension I10
== END 2023-04-05 09:49 | disposition home or self-care (01) ==
PROVIDERS: PCP Internal Medicine; Visit Provider Internal Medicine
DX: E03.9 Hypothyroidism, unspecified (principal); E78.5 Hyperlipidemia, unspecified; I10 Essential (primary) hypertension
CPT/HCPCS: 99214

== ENCOUNTER 2023-06-01 13:01 | Outpatient (AMB) | payer OTHER, SELFPAY ==
--- NOTE | 2023-06-01 13:28 | A.OFFVIS_ITS ---
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 First Sampler: First Sampler Present (Danita) Allergies amoxicillin [AMOXICILLIN] Allergy (Mild, Verified 06/01/23 13:29) DIARRHEA aspirin [Aspirin] Allergy (Mild, Verified 06/01/23 13:29) UPSET STOMACH azithromycin [From Zithromax] Adverse Reaction (Mild, Verified 06/01/23 13:29) DIARRHEA ibuprofen [From ADVIL] Adverse Reaction (Mild, Verified 06/01/23 13:29) GI UPSET oxycodone [From PERCOCET] Adverse Reaction (Mild, Verified 06/01/23 13:29) CAUSES LOOPINESS Post menopausal: Yes HPI HPI Comments History of Present Illness Details She is a 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 She is doing well with no concerns. Attempting to eat a healthy diet with calcium and vitamin D, and stays active with exercise. Currently not sexually active. Denies any irritations. Last mammogram; 2022. Colonoscopy is UTD. [facility] Medical History Hydronephrosis Cyst of kidney, acquired Tendinitis involving right hip abductors Hypothyroidism Surgical History History of dental surgery History of cataract surgery History of knee surgery History of renal stent History of hysteroscopy History of lumpectomy of right breast Family History Father Diabetes CVD (cardiovascular disease) Hypertension Heart disease Mother Breast cancer Colon cancer Sister No problems noted. Family/Other Ovarian cancer Social History Housing: House Alcohol intake: current Alcohol intake frequency: holidays/special occasions only Patient Tobacco Use Status: Never used Tobacco e-Cigarette/Vaping Use: Never Used Second Hand Smoke Exposure: No Advance Directives Date on File: 01/22/20 service: No Current occupational status: retired Cognitive needs: No Hearing needs: No Vision needs: Yes Female Reproductive History Menstrual Menopause type: natural Total pregnancies: 0 Date of last pap smear: 09/22/15 (neg pap and hpv) Date of Mammogram: 02/27/23 (Birad 1) Review of Systems Const All systems reviewed & are unremarkable except as noted in HPI and below Reports as per HPI Eyes Reports no additional complaints ENT Reports no additional complaints Card Reports no additional complaints Resp Reports no additional complaints GI Reports as per HPI and Reports no additional complaints Reports as per HPI Musc Reports no additional complaints Skin/Breast Reports as per HPI Neuro Reports no additional complaints Psych Reports no additional complaints Endo Reports no additional complaints Nazario/Lymph Reports no additional complaints Aller/Immun Reports no additional complaints Physical Exam Vital Signs: Last Vital Signs BP 104/68 06/01/23 13:29 BMI result Body Mass Index 22.6 Const General: cooperative, healthy appearing, no acute distress, well developed and alert Orientation/consciousness: patient oriented x3 HEENT Head: Yes normal to inspection Eyes General: appearance normal, both eyes and all related structures Neck Neck: Yes normal visual inspection Thyroid: Thyroid normal Chest Chest palpation & inspection: normal inspection of the chest and other (no puckering, dimpling, peau de orange, retraction, discharge, masses) Breast/axilla inspection: normal inspection of the breasts Breast/axilla palpation: normal palpation of the breasts Resp Effort & Inspection: normal respiratory effort GI Inspection: Yes normal to inspection Palpation (GI): Soft to palpation Rectal Exam - Female: deferred General: Yes bladder normal to palpation External Female Exam: normal external appearance and normal appearance of the urethra Speculum Exam - Vagina: normal appearance of the vagina, normal palpation, normal vaginal discharge and vagina atrophic Speculum Exam - Cervix: normal appearance of the cervix and normal palpation Bimanual exam- vagina & uterus: normal bimanual exam, normal palpation, bladder normal to palpation, normal palpation, non-tender and enlarged (Retroverted) Bimanual Exam- Adnexa, other: no masses Skin General skin exam: no rashes or lesions noted Rashes: no rashes Neuro General: patient oriented x3 Cognition (Neuro): normal cognition Extrem General: Yes normal to inspection Psych Attitude: cooperative Thought process: Normal thought process present Assessment & Plan Assessment & Plan (1) Encounter for well woman exam with routine gynecological exam: Code(s): Z01.419 - Encounter for gynecological examination (general) (routine) without abnormal findings (2) Fibroid: Code(s): D21.9 - Benign neoplasm of connective and other soft tissue, unspecified Plan Discussed: Current recommendations for pap smears per ASCCP guidelines. Breast awareness, periodic self breast exams and yearly mammogram. Maintain a healthy lifestyle, well balanced diet including Calcium 1,200 mg and Vitamin D 800 IU daily, and routine exercise. Ultrasound for fibroid stability ordered, follow-up for ultrasound results. Contact the office with any postmenopausal bleeding, pelvic pain, bloating or pressure of the pelvis. Sign up for the patient portal if not already enrolled. Patient verbalizes understanding and agrees to the plan of care. She was given opportunity to ask questions and all questions were answered to the best of my ability. Return to the office 1 year. This note is constructed using voice recognition software. While every effort has been made to ensure accuracy, blasting entry specialist errors may have been included. 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 Orders: Orders US pelvic and transvaginal Today D21.9 - Benign neoplasm of connective and other soft tissue, unspecified Coding Level of Care Code Est Pt Prev Care >65y(93597) Diagnoses Encounter for well woman exam with routine gynecological exam Z01.419 Fibroid D21.9
[2023-06-01 13:29] VITALS: BP 104/68; BMI 22.6
== END 2023-06-01 14:08 | disposition home or self-care (01) ==
PROVIDERS: PCP Internal Medicine; Visit Provider Advanced Practice Midwife
DX: Z01.419 Encounter for gynecological examination (general) (routine) without abnormal findings (principal); D21.9 Benign neoplasm of connective and other soft tissue, unspecified
CPT/HCPCS: 99397

== ENCOUNTER → 2023-06-01 13:01 | Outpatient (BNVA) | payer OTHER, SELFPAY | PROVIDERS: PCP Internal Medicine; Visit Provider Advanced Practice Midwife ==

== ENCOUNTER 2023-06-21 10:39 | Outpatient (REF) | payer OTHER, SELFPAY ==
--- NOTE | ~2023-06-21 | US_ITS ---
EXAMINATION: US PELVIS COMPLETE CLINICAL INFORMATION: Myomatous; postmenopausal patient. COMPARISON: Pelvic ultrasound dated 06/10/2022. TECHNIQUE: Transabdominal imaging was performed. FINDINGS: The uterus is of normal size and echogenicity measuring 7.7 x 6.7 x 8.2 cm. The uterus is retroverted and retroflexed. The endometrial stripe is poorly visualized. FIBROIDS: There is 1 fibroid seen. 1. Location: Fundus, myometrial. Size: 5.4 x 4.7 x 6.9 cm. Prior: 5.8 x 5.2 x 7.3 cm. Fibroid characteristics: Heterogeneous echotexture. Both ovaries are nonvisualized. There is no pelvic free fluid. No adnexal mass is seen. US/US pelvic and transvaginal IMPRESSION: 1. A moderately large uterine fundal fibroid is redemonstrated, as detailed. 2. The endometrial stripe is not visualized. 3. The bilateral ovaries are nonvisualized.
== END 2023-06-21 10:40 | disposition home or self-care (01) ==
LOC: HO.US 10:39
PROVIDERS: PCP Internal Medicine; Visit Provider Advanced Practice Midwife
DX: D21.9 Benign neoplasm of connective and other soft tissue, unspecified (principal)
CPT/HCPCS: 76830; 76856

== ENCOUNTER 2023-06-30 07:47 | Outpatient (REF) | payer OTHER, SELFPAY ==
[2023-06-30 08:39] LABS: Cholesterol 181 mg/dL (<200); HDL Cholesterol 54 mg/dL (>40); LDL Cholesterol Calculated 107 mg/dL (<100); Triglycerides 100 mg/dL (<150)
[2023-06-30 08:56] LABS: Thyroid Stimulating Hormone 2.07 uIU/mL (0.32-4.0)
== END 2023-06-30 07:48 | disposition home or self-care (01) ==
LOC: HO.LAB 07:47
PROVIDERS: PCP Internal Medicine; Visit Provider Internal Medicine
DX: E03.9 Hypothyroidism, unspecified (principal); E78.5 Hyperlipidemia, unspecified
CPT/HCPCS: 36415; 80061; 84443

== ENCOUNTER → 2023-07-04 10:45 | Outpatient (REF) | payer OTHER, SELFPAY ==
--- NOTE | ~2023-07-04 | NM_ITS ---
EXAMINATION: RENAL DYNAMIC IMAGING STUDY WITH LASIX CLINICAL INFORMATION: Unspecified hydronephrosis. COMPARISON: No previous radionuclide renal scan is available for comparison. Renal ultrasound dated 05/19/2022 is available for comparison. CT scan of the abdomen and pelvis dated 09/07/2006 is also available for comparison. TECHNIQUE: Serial gamma scintillation camera images were obtained over the posterior trunk during the initial transit and subsequent distribution of a bolus intravenous injection of 10.0 mCi of Tc-99m DTPA. At 30 minutes later, 31 mg of Lasix was administered intravenously and an additional 30 minutes of images obtained. FINDINGS: Initial rapid sequence images show prompt and normal-appearing perfusion to the left kidney. Left kidney appears hypertrophied. The right kidney is not visualized during the flow images. Subsequent sequential static images obtained up to 30 minutes show good concentration and the left kidney which appears enlarged. There is evidence of excretory function by 3 minutes post injection on the left. On the early images there is a mild rounded blush of activity superior to the urinary bladder which visualizes subsequently, and this appears to correspond to an enlarged uterus visualized on the 09/07/2006 CT scan of the abdomen and pelvis. There is no visualization of the right kidney. At 30 minutes postinjection there is good visualization of activity in the urinary bladder and only mild retention in the left renal pelvis which does not appear dilated. Following Lasix administration, there is prompt washout from the left renal collecting system and progressive filling of the urinary bladder. There continues to be no visualization of the right kidney. The T-1/2 washout time following Lasix administration is 10.0 minutes on the left. A meaningful T-1/2 washout time on the right cannot be calculated because of the absence of visualization of this kidney. The relative function of the two kidneys based on the 2-3 minute images are: Left 100% and right 0%. NM/NM renal flow w pharm int IMPRESSION: LEFT KIDNEY: Normal perfusion and function. No hydronephrosis or outflow obstruction. RIGHT KIDNEY: This kidney is absent or nonfunctioning.
== END ==
LOC: HO.NUCMED 10:45
PROVIDERS: PCP Internal Medicine; Visit Provider Urology
DX: N13.30 Unspecified hydronephrosis (principal)
CPT/HCPCS: 78708; A9539; J1940

== ENCOUNTER 2023-07-05 09:37 | Outpatient (AMB) | payer OTHER, SELFPAY ==
[2023-07-05 09:38] VITALS: BP 122/64; PULSE 85; O2SAT 99; BMI 22.4
--- NOTE | 2023-07-05 09:38 | A.OFFPC_ITS ---
Vital Signs 07/05/23 09:38 Height 5 ft 5.5 in Weight 137 lb BMI 22.4 BP 122/64 Blood Pressure Location Lt brachial Position Sitting Pulse 85 Pulse Source Pulse Oximeter Pulse Oximetry (%) 99 Oxygen Delivery Method Room Air Intake Visit Reasons: 3mth f/u Publicity Agent Required: No Lockstitch Front Maker: Not Required per policy Accompanied by: Self / Same As Patient Allergies amoxicillin [AMOXICILLIN] Allergy (Mild, Verified 07/05/23 09:38) DIARRHEA aspirin [Aspirin] Allergy (Mild, Verified 07/05/23 09:38) UPSET STOMACH azithromycin [From Zithromax] Adverse Reaction (Mild, Verified 07/05/23 09:38) DIARRHEA ibuprofen [From ADVIL] Adverse Reaction (Mild, Verified 07/05/23 09:38) GI UPSET oxycodone [From PERCOCET] Adverse Reaction (Mild, Verified 07/05/23 09:38) CAUSES LOOPINESS Medication List - Last Reconciled 07/06/23 by Dontae Nelson MD amlodipine 5 mg PO DAILY atorvastatin 40 mg PO DAILY fluticasone propionate 50 mcg/actuation 1 spray intranasal DAILY levothyroxine 50 mcg PO DAILY meclizine 25 mg PO QID PRN Tobacco use date assessed: 07/05/23 Fall risk assessment: No Falls in past year Last assessed Fall Risk: 07/05/23 Dental Screening Dental Screen Date: 07/05/23 Did you have a dental visit in the last 12 months?: Yes Did you have a dental problem in the last 6 months where you did not have access to dental care?: No Was dental information given to patient?: Patient has dentist HPI 3mth f/u HPI Details HTN hyperlip and hypothyr; doing well and compliant COUNT INCLUDES THE [facility] Medical History Hydronephrosis Cyst of kidney, acquired Tendinitis involving right hip abductors Hypothyroidism Surgical History History of dental surgery History of cataract surgery History of knee surgery History of renal stent History of hysteroscopy History of lumpectomy of right breast Family History Father Diabetes CVD (cardiovascular disease) Hypertension Heart disease Mother Breast cancer Colon cancer Sister No problems noted. Family/Other Ovarian cancer Social History Housing: House Alcohol intake: current Alcohol intake frequency: holidays/special occasions only Patient Tobacco Use Status: Never used Tobacco e-Cigarette/Vaping Use: Never Used Second Hand Smoke Exposure: No Advance Directives Date on File: 01/22/20 service: No Current occupational status: retired Cognitive needs: No Hearing needs: No Vision needs: Yes Questionnaire PHQ-9 Over the last 2 weeks, how often have you been bothered by any of the following problems? 1. Little interest or pleasure in doing things: not at all 2. Feeling down, depressed, or hopeless: not at all 3. Trouble falling or staying asleep, or sleeping too much: not at all 4. Feeling tired or having little energy: not at all 5. Poor appetite or overeating: not at all 6. Feeling bad about yourself - or that you are a failure or have let yourself or your family down: not at all 7. Trouble concentrating on things, such as reading the newspaper or watching television: not at all 8. Moving or speaking so slowly that other people could have noticed. Or the opposite - being so fidgety or restless that you have been moving around a lot more than usual: not at all 9. Thoughts that you would be better off or of hurting yourself in some way: not at all Total score: 0 Depression Screening Interpretation: Negative Depression Screening Done: Yes Source: Developed by Drs. Maxim Solares, Aileen Leblanc, Bang Lawton and colleagues, with an educational belle from [employer]. Thrive Questionnaire Date Thrive assessed: 07/05/23 I am a: Patient What is your living situation today?: I have a steady place to live Within the past 12 months, did the food you bought not last and you didn't have the money to get more?: Never true Within the past 12 months, did you worry whether your food would run out before you got money to buy more?: Never true Do you have trouble paying for medicines?: No Do you have trouble getting transportation to medical appointments?: No Do you have trouble paying your heating and electricity bill?: No Do you have trouble taking care of your child, family member or friend?: No Do you have trouble with day-to-day activities such as bathing, preparing meals, shopping, managing finances, etc.?: No Are you currently unemployed and looking for a job?: No Are you interested in more education?: No Please select the resources that you would like help with: None THRIVE Score: 0 AUDIT C Alcohol Use Questionnaire (AUDIT-C) 1. How often do you have a drink containing alcohol?: 2-3 times a week 2. How many drinks containing alcohol do you have on a typical day when you are drinking?: 1 or 2 3. How often do you have six or more drinks on one occasion?: Never Total Score: 3 Score Reviewed/Action Taken: Yes TRICIA-7 AMB Questionnaire TRICIA-7 Date TRICIA - 7 assessed: 07/05/23 Feeling nervous, anxious, or on edge: 0 = Not at all Not being able to stop or control worryin = Not at all Worrying too much about different things: 0 = Not at all Trouble relaxin = Not at all Being so restless that it is hard to sit still: 0 = Not at all Becoming easily annoyed or irritable: 0 = Not at all Feeling afraid as if something awful might happen: 0 = Not at all Total TRICIA-7 score (0-4 normal; 5-9 mild; 10-14 moderate; 15-21 severe): 0 Source: Developed by Drs. Maxim Solares, Aileen Leblanc, Bang Lawton and colleagues, with an educational belle from [employer]. Review of Systems Const Denies chills, Denies headache(s) and Denies weight loss ENT Denies headache(s) Card Denies chest pain, Denies syncope, Denies irregular heart rhythm and Denies dyspnea Resp Denies chest congestion, Denies cough and Denies dyspnea GI Denies abdominal pain, Denies change in stool character, Denies nausea and Denies vomiting Musc Denies deformity and Denies joint swelling Neuro Denies syncope and Denies headache(s) Physical exam (Primary Care) Vital Signs: Last Vital Signs Pulse 85 07/05/23 09:38 BP 122/64 07/05/23 09:38 Pulse Ox 99 07/05/23 09:38 Oxygen Delivery Method Room Air 07/05/23 09:38 BMI result Body Mass Index 22.4 Tobacco/Smoking Status: Tobacco use Status Tobacco use date assessed 07/05/23 07/05/23 09:39 Patient Tobacco Use Status Never used Tobacco 07/05/23 09:39 e-Cigarette/Vaping Use Never Used 07/05/23 09:39 PHQ-9: PHQ-9 Score PHQ-9: Total score 0 07/05/23 09:43 Depression Screening Interpretation: Negative Thrive Assessment: Date of Thrive Assessment Date Thrive assessed 07/05/23 07/05/23 09:39 Const General: cooperative, comfortable, no acute distress and alert Neck Neck: Yes no lymphadenopathy Thyroid: Thyroid normal Resp Effort & Inspection: normal respiratory effort Auscultation: clear to auscultation bilaterally Percussion: percussion normal Cardio Jugular venous distension: no JVD Palpation: normal PMI Rate: regular rate Rhythm: regular rhythm Heart sounds: S1 normal heart sound present and S2 normal heart sound present GI Inspection: Yes normal to inspection Palpation (GI): No hepatosplenomegaly present Skin General skin exam: no rashes or lesions noted Extrem General: Yes no clubbing, cyanosis or edema Assessment and Plan Assessment & Plan (1) Hypothyroidism: Code(s): E03.9 - Hypothyroidism, unspecified Plan: stable; same rx (2) Hyperlipidemia: Code(s): E78.5 - Hyperlipidemia, unspecified Plan: stable; samev rx (3) Hypertension: Code(s): I10 - Essential (primary) hypertension Plan: stable; same rx Orders: Orders Lipid Panel 07/05/23 E78.5 - Hyperlipidemia, unspecified XR lumbar spine 2-3V 07/05/23 M54.9 - Dorsalgia, unspecified Lipid Panel Today E78.5 - Hyperlipidemia, unspecified Thyroid Stimulating Hormone Today E03.9 - Hypothyroidism, unspecified Coding Level of Care Code Est Pt Level 4 (41458) Diagnoses Hypothyroidism E03.9 Hyperlipidemia E78.5 Hypertension I10 Additional Codes PHQ-9 - 84923 - PHQ-9 Billing: ([id number])
== END 2023-07-05 10:24 | disposition home or self-care (01) ==
PROVIDERS: PCP Internal Medicine; Visit Provider Internal Medicine
DX: E03.9 Hypothyroidism, unspecified (principal); E78.5 Hyperlipidemia, unspecified; I10 Essential (primary) hypertension
CPT/HCPCS: 99214

== ENCOUNTER 2023-07-21 08:57 | Outpatient (AMB) | payer OTHER, SELFPAY ==
--- NOTE | 2023-07-21 09:01 | A.OFFVIS_ITS ---
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 Allergies amoxicillin [AMOXICILLIN] Allergy (Mild, Verified 07/05/23 09:38) DIARRHEA aspirin [Aspirin] Allergy (Mild, Verified 07/05/23 09:38) UPSET STOMACH azithromycin [From Zithromax] Adverse Reaction (Mild, Verified 07/05/23 09:38) DIARRHEA ibuprofen [From ADVIL] Adverse Reaction (Mild, Verified 07/05/23 09:38) GI UPSET oxycodone [From PERCOCET] Adverse Reaction (Mild, Verified 07/05/23 09:38) CAUSES LOOPINESS Is last menstrual period known: Yes HPI HPI Comments History of Present Illness Details Patient is here for an ultrasound follow-up results, previous exam revealed bulky uterus in the retroverted position my history of known large fibroid. No vaginal bleeding. PFS Medical History (Updated 07/21/23 @ 09:32 by Makenzie Vega CNM) Fibroid Hydronephrosis Cyst of kidney, acquired Tendinitis involving right hip abductors Hypothyroidism Surgical History History of dental surgery History of cataract surgery History of knee surgery History of renal stent History of hysteroscopy History of lumpectomy of right breast Family History Father Diabetes CVD (cardiovascular disease) Hypertension Heart disease Mother Breast cancer Colon cancer Sister No problems noted. Family/Other Ovarian cancer Social History Housing: House Alcohol intake: current Alcohol intake frequency: holidays/special occasions only Patient Tobacco Use Status: Never used Tobacco e-Cigarette/Vaping Use: Never Used Second Hand Smoke Exposure: No Advance Directives Date on File: 01/22/20 service: No Current occupational status: retired Cognitive needs: No Hearing needs: No Vision needs: Yes Review of Systems Const All systems reviewed & are unremarkable except as noted in HPI and below Endo Reports no additional complaints Physical Exam Vital Signs: Last Vital Signs BP 132/72 07/21/23 09:03 BMI result Body Mass Index 22.4 Const General: cooperative, healthy appearing and no acute distress Psych Appearance: well kempt Attitude: cooperative Thought process: Normal thought process present Results Reviewed Results Reviewed: [address] [address] Ultrasound Report Signed Patient: Melonie Lucas MR#: [id number] : 1950 Acct:[id number] Age/Sex: 72 / F ADM Date: 06/21/23 Loc: HO.US Attending Dr: Makenzie Vega CNM Ordering Physician: Makenzie Vega CNM Date of Service: 06/21/23 Procedure(s): US pelvic and transvaginal Accession Number(s): [id number] cc: Dontae Nelson MD; Makenzie Vega CNM~ EXAMINATION: US PELVIS COMPLETE CLINICAL INFORMATION: Myomatous; postmenopausal patient. COMPARISON: Pelvic ultrasound dated 06/10/2022. TECHNIQUE: Transabdominal imaging was performed. FINDINGS: The uterus is of normal size and echogenicity measuring 7.7 x 6.7 x 8.2 cm. The uterus is retroverted and retroflexed. The endometrial stripe is poorly visualized. FIBROIDS: There is 1 fibroid seen. 1. Location: Fundus, myometrial. Size: 5.4 x 4.7 x 6.9 cm. Prior: 5.8 x 5.2 x 7.3 cm. Fibroid characteristics: Heterogeneous echotexture. Both ovaries are nonvisualized. There is no pelvic free fluid. No adnexal mass is seen. US/US pelvic and transvaginal IMPRESSION: 1. A moderately large uterine fundal fibroid is redemonstrated, as detailed. 2. The endometrial stripe is not visualized. 3. The bilateral ovaries are nonvisualized. Dictated By: Tico Hines MD Signed By: <Electronically signed by Tico Hines MD in OV> 06/23/232128 DD/ 16 TD/TT: Manager Architectural: CURLY Assessment & Plan Assessment & Plan (1) Fibroid: Code(s): D21.9 - Benign neoplasm of connective and other soft tissue, unspecified Plan Discussed: Ultrasound findings-fibroid has decreased in size since previous exam. Fibroids typically benign connective tissue tumors that is stabilize in menopause, follow up yearly unless any symptoms such as pelvic pain, pressure, vaginal bleeding. She admits that it was very painful to have the exam in comparison to the previous a few years ago. Advised to consider Replens moisturizer reviewed use. Patient has a follow-up in May for her annual. All of her questions and concerns were addressed to the best of my ability and shared decision making. She is agreeable to the plan of care. This note is constructed using voice recognition software. While every effort has been made to ensure accuracy, pond supervisor errors may have been included. Coding Level of Care Code Est Pt Level 3 (34330) Diagnoses Fibroid D21.9
[2023-07-21 09:03] VITALS: BP 132/72; BMI 22.4
== END 2023-07-21 10:31 | disposition home or self-care (01) ==
LOC: HO.HWS 08:57
PROVIDERS: PCP Internal Medicine; Visit Provider Advanced Practice Midwife
DX: D21.9 Benign neoplasm of connective and other soft tissue, unspecified (principal)
CPT/HCPCS: 99213

== ENCOUNTER → 2023-07-21 08:57 | Outpatient (BNVA) | payer OTHER, SELFPAY | PROVIDERS: PCP Internal Medicine; Visit Provider Advanced Practice Midwife ==

== ENCOUNTER 2023-07-28 08:25 | Outpatient (AMB) | payer OTHER, SELFPAY ==
--- NOTE | 2023-07-28 08:26 | A.OFFVIS_ITS ---
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 She is a patient of Dr. Mesa. She seen for the following urologic conditions - severe right hydronephrosis - chronic 06/10 Renogram - The relative function of the two kidne ys based on the 2-3 minute images are: Left 100% and Right 0% No need for further follow-up Right hydronephrosis Chronic condition seen from 1999 Stable on imaging [facility] - 08/06 creatinine 0.7 Imaging - 06/09 renal ultrasound chronic right hy dronephrosis consistent with chronic UPJ PFSH Medical History Fibroid Hydronephrosis Cyst of kidney, acquired Tendinitis involving right hip abductors Hypothyroidism Surgical History History of dental surgery History of cataract surgery History of knee surgery History of renal stent History of hysteroscopy History of lumpectomy of right breast Family History Father Diabetes CVD (cardiovascular disease) Hypertension Heart disease Mother Breast cancer Colon cancer Sister No problems noted. Family/Other Ovarian cancer Social History Housing: House Alcohol intake: current Alcohol intake frequency: holidays/special occasions only Patient Tobacco Use Status: Never used Tobacco e-Cigarette/Vaping Use: Never Used Second Hand Smoke Exposure: No Advance Directives Date on File: 01/22/20 service: No Current occupational status: retired Cognitive needs: No Hearing needs: No Vision needs: Yes Review of Systems Const Denies chills and Denies fever(s) Card Reports no additional complaints and Denies syncope Resp Denies cough GI Denies abdominal pain and Denies heartburn Reports as per HPI and Denies change in libido Neuro Denies syncope Psych Denies change in libido Endo Denies change in libido Physical Exam Const General: cooperative, healthy appearing, comfortable and no acute distress Orientation/consciousness: patient oriented x3 HEENT Face and sinus: Yes normal facial exam Mouth: moist mucous membranes Neck Neck: Yes normal visual inspection, Yes full ROM and Yes trachea midline Chest Chest palpation & inspection: normal inspection of the chest Resp Effort & Inspection: normal respiratory effort, able to speak in complete sentences and no respiratory distress GI Inspection: Yes normal to inspection Back/Spine/Pelvis Cervical Spine: normal cervical lordosis Thoracic/Lumbar Spine: thoracic and lumbar spine normal to inspection Skin General skin exam: no rashes or lesions noted Neuro General: patient oriented x3, gait normal, tone normal and moves all extremities Extrem General: Yes normal to inspection and Yes capillary refill normal Assessment & Plan Assessment & Plan (1) Hydronephrosis: Comment: 2002 Lasix renogram with poor right renal uptake Code(s): N13.30 - Unspecified hydronephrosis (2) Cyst of kidney, acquired: Code(s): N28.1 - Cyst of kidney, acquired Plan P.r.n. follow-up Patient Instructions: Imaging studies, laboratory and physical exam results were discussed and reviewed in detail. No major barriers to patient understanding were identified. An opportunity to ask questions regarding the treatment plan was provided. All questions were answered. The patient expressed understanding and agreement with the above treatment plan. The patient is aware they should contact our office by phone for worsening of their current condition or the appearance of new urologic symptoms. Compliance is encouraged with any medications and followup testing that is ordered. It is a privilege to participate in the urologic care of your patient. If you have any questions or concerns regarding treatment for the above conditions, or other urologic issues, please do not hesitate to contact me. The office telephone contact is [phone]. This note is constructed using voice recognition software. While every effort has been made to ensure accuracy fitter / welder errors may have been included. Yours sincerely, Dr Jameel Aguilar MD, [facility] - Urology Providers of Expert, Compassionate Care for the Genitourinary System Coding Level of Care Code Est Pt Level 4 (01150) Diagnoses Hydronephrosis N13.30 Cyst of kidney, acquired N28.1
== END 2023-07-28 09:11 | disposition home or self-care (01) ==
PROVIDERS: PCP Internal Medicine; Visit Provider Urology
DX: N13.30 Unspecified hydronephrosis (principal); N28.1 Cyst of kidney, acquired
CPT/HCPCS: 99213

== ENCOUNTER → 2023-07-28 08:25 | Outpatient (BNVA) | payer OTHER, SELFPAY | PROVIDERS: PCP Internal Medicine; Visit Provider Urology ==

== ENCOUNTER 2023-09-21 09:35 | Outpatient (REF) | payer OTHER, SELFPAY ==
--- NOTE | ~2023-09-21 | XR_ITS ---
EXAMINATION: XR LUMBOSACRAL SPINE CLINICAL INFORMATION: Back pain. COMPARISON: X-ray pelvis of 09/10/2020 and right hip 08/10/2020. TECHNIQUE: Three views of the lumbosacral spine. FINDINGS: Mild levoscoliosis of the lumbar spine. Facet arthritis in the mid to lower lumbar spine. Bones are diffusely demineralized. Degenerative changes in the bilateral sacroiliac joints. Degenerative changes on very limited images of the bilateral hips. Multilevel lumbar spondylosis. Grade 1 retrolisthesis of L1 and L2 with marked loss of disc space height and abundant subchondral sclerosis. Grade 1 retrolisthesis of L2 on L3 with [id number] loss of disc space height. Grade 1 anterolisthesis of L5 on S1 with moderate loss of disc space height. XR/XR lumbar spine 2-3V IMPRESSION: Multilevel lumbar spondylosis most notable at L1-L2.
== END 2023-09-21 09:36 | disposition home or self-care (01) ==
LOC: HO.XRAY 09:35
PROVIDERS: PCP Internal Medicine; Visit Provider Internal Medicine
DX: M54.9 Dorsalgia, unspecified (principal)
CPT/HCPCS: 72100

== ENCOUNTER 2023-10-03 07:54 | Outpatient (REF) | payer OTHER, SELFPAY ==
[2023-10-03 12:01] LABS: Cholesterol 176 mg/dL (<200); HDL Cholesterol 55 mg/dL (>40); LDL Cholesterol Calculated 106 mg/dL (<100); Triglycerides 75 mg/dL (<150)
[2023-10-03 12:03] LABS: Thyroid Stimulating Hormone 1.96 uIU/mL (0.32-4.0)
== END 2023-10-03 07:55 | disposition home or self-care (01) ==
LOC: HO.10HDL 07:54
PROVIDERS: Visit Provider Internal Medicine
DX: E78.5 Hyperlipidemia, unspecified (principal); E03.9 Hypothyroidism, unspecified
CPT/HCPCS: 36415; 80061; 84443

== ENCOUNTER 2023-10-18 08:37 | Outpatient (AMB) | payer OTHER, SELFPAY ==
[2023-10-18 08:41] VITALS: BP 132/68; PULSE 90; O2SAT 98; BMI 22.4
--- NOTE | 2023-10-18 08:41 | MHC.PC.OV ---
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 Accompanied by: Self / Same As Patient Allergies amoxicillin [AMOXICILLIN] Allergy (Mild, Verified 10/18/23 08:41) DIARRHEA aspirin [Aspirin] Allergy (Mild, Verified 10/18/23 08:41) UPSET STOMACH azithromycin [From Zithromax] Adverse Reaction (Mild, Verified 10/18/23 08:41) DIARRHEA ibuprofen [From ADVIL] Adverse Reaction (Mild, Verified 10/18/23 08:41) GI UPSET oxycodone [From PERCOCET] Adverse Reaction (Mild, Verified 10/18/23 08:41) CAUSES LOOPINESS Medication List - Last Reconciled 10/18/23 by Dontae Nelson MD amlodipine 5 mg PO DAILY atorvastatin 40 mg PO DAILY fluticasone propionate 50 mcg/actuation 1 spray intranasal DAILY levothyroxine 50 mcg PO DAILY meclizine 25 mg PO QID PRN triamcinolone acetonide 0.1% 1 appl topical BID-TID Tobacco use date assessed: 07/05/23 Fall risk assessment: No Falls in past year Last assessed Fall Risk: 10/18/23 Dental Screening Dental Screen Date: 07/05/23 HPI 3 month f/u HPI Details HTN on rx; doing well; compliant [facility] Medical History Fibroid Hydronephrosis Cyst of kidney, acquired Tendinitis involving right hip abductors Hypothyroidism Surgical History History of dental surgery History of cataract surgery History of knee surgery History of renal stent History of hysteroscopy History of lumpectomy of right breast Family History Father Diabetes CVD (cardiovascular disease) Hypertension Heart disease Mother Breast cancer Colon cancer Sister No problems noted. Family/Other Ovarian cancer Social History Housing: House Alcohol intake: current Alcohol intake frequency: holidays/special occasions only Patient Tobacco Use Status: Never used Tobacco e-Cigarette/Vaping Use: Never Used Second Hand Smoke Exposure: No Advance Directives Date on File: 01/22/20 service: No Current occupational status: retired Cognitive needs: No Hearing needs: No Vision needs: Yes Questionnaire Thrive Questionnaire Date Thrive assessed: 07/05/23 TRICIA-7 AMB Questionnaire TRICIA-7 Date TRICIA - 7 assessed: 07/05/23 Source: Developed by Drs. Maxim Solares, Aileen Leblanc, Bang Lawton and colleagues, with an educational belle from [employer]. Review of Systems Const Denies chills, Denies headache(s) and Denies weight loss ENT Denies headache(s) Card Denies chest pain, Denies syncope, Denies irregular heart rhythm and Denies dyspnea Resp Denies chest congestion, Denies cough and Denies dyspnea GI Denies abdominal pain, Denies change in stool character, Denies nausea and Denies vomiting Musc Denies deformity and Denies joint swelling Neuro Denies syncope and Denies headache(s) Physical exam (Primary Care) Vital Signs: Last Vital Signs Pulse 90 10/18/23 08:41 BP 132/68 10/18/23 08:41 Pulse Ox 98 10/18/23 08:41 Oxygen Delivery Method Room Air 10/18/23 08:41 BMI result Body Mass Index 22.4 Tobacco/Smoking Status: Tobacco use Status Tobacco use date assessed 07/05/23 10/18/23 08:46 Patient Tobacco Use Status Never used Tobacco 10/18/23 08:46 e-Cigarette/Vaping Use Never Used 10/18/23 08:46 Thrive Assessment: Date of Thrive Assessment Date Thrive assessed 07/05/23 10/18/23 08:46 Const General: cooperative, comfortable, no acute distress and alert Neck Neck: Yes no lymphadenopathy Thyroid: Thyroid normal Resp Effort & Inspection: normal respiratory effort Auscultation: clear to auscultation bilaterally Percussion: percussion normal Cardio Jugular venous distension: no JVD Palpation: normal PMI Rate: regular rate Rhythm: regular rhythm Heart sounds: S1 normal heart sound present and S2 normal heart sound present GI Inspection: Yes normal to inspection Palpation (GI): No hepatosplenomegaly present Skin General skin exam: no rashes or lesions noted Extrem General: Yes no clubbing, cyanosis or edema Assessment and Plan Assessment & Plan (1) Hypertension: Code(s): I10 - Essential (primary) hypertension Plan: stable; same rx Orders: Orders Lipid Panel Today Z13.220 - Encounter for screening for lipoid disorders Medications: New zolpidem (Ambien) 5 mg PO BEDTIME PRN 30 tabs 3RF sleep Coding Level of Care Code Est Pt Level 3 (39591) Diagnoses Hypertension I10
== END 2023-10-18 09:08 | disposition home or self-care (01) ==
PROVIDERS: PCP Internal Medicine; Visit Provider Internal Medicine
DX: I10 Essential (primary) hypertension (principal)
CPT/HCPCS: 99213

== ENCOUNTER 2024-01-19 08:07 | Outpatient (REF) | payer OTHER, SELFPAY ==
[2024-01-19 11:27] LABS: Cholesterol 181 mg/dL (<200); HDL Cholesterol 55 mg/dL (>40); LDL Cholesterol Calculated 104 mg/dL (<100); Triglycerides 114 mg/dL (<150)
== END 2024-01-19 08:08 | disposition home or self-care (01) ==
LOC: HO.10HDL 08:07
PROVIDERS: Visit Provider Internal Medicine
DX: Z13.220 Encounter for screening for lipoid disorders (principal)
CPT/HCPCS: 36415; 80061

== ENCOUNTER 2024-01-24 14:05 | Outpatient (AMB) | payer OTHER, SELFPAY ==
[2024-01-24 14:06] VITALS: BP 122/70; PULSE 89; O2SAT 97; BMI 22.3
--- NOTE | 2024-01-24 14:06 | MHC.PC.OV ---
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 Accompanied by: Self / Same As Patient Allergies amoxicillin [AMOXICILLIN] Allergy (Mild, Verified 01/24/24 14:08) DIARRHEA aspirin [Aspirin] Allergy (Mild, Verified 01/24/24 14:08) UPSET STOMACH azithromycin [From Zithromax] Adverse Reaction (Mild, Verified 01/24/24 14:08) DIARRHEA ibuprofen [From ADVIL] Adverse Reaction (Mild, Verified 01/24/24 14:08) GI UPSET oxycodone [From PERCOCET] Adverse Reaction (Mild, Verified 01/24/24 14:08) CAUSES LOOPINESS Medication List - Last Reconciled 01/25/24 by Dontae Nelson MD amlodipine 5 mg PO DAILY atorvastatin 40 mg PO DAILY fluticasone propionate 50 mcg/actuation 1 spray intranasal DAILY levothyroxine 50 mcg PO DAILY meclizine 25 mg PO QID PRN triamcinolone acetonide 0.1% 1 appl topical BID-TID zolpidem (Ambien) 5 mg PO BEDTIME PRN Tobacco use date assessed: 07/05/23 Fall risk assessment: No Falls in past year Last assessed Fall Risk: 01/24/24 Dental Screening Dental Screen Date: 07/05/23 HPI 3 mo f/u HPI Details HTN on Rx; stable on meds; comliant PFSH Medical History Fibroid Hydronephrosis Cyst of kidney, acquired Tendinitis involving right hip abductors Hypothyroidism Surgical History History of dental surgery History of cataract surgery History of knee surgery History of renal stent History of hysteroscopy History of lumpectomy of right breast Family History Father Diabetes CVD (cardiovascular disease) Hypertension Heart disease Mother Breast cancer Colon cancer Sister No problems noted. Family/Other Ovarian cancer Social History Housing: House Alcohol intake: current Alcohol intake frequency: holidays/special occasions only Patient Tobacco Use Status: Never used Tobacco Tobacco use type: Cigarette e-Cigarette/Vaping Use: Never Used Second Hand Smoke Exposure: No Advance Directives Date on File: 01/22/20 service: No Current occupational status: retired Cognitive needs: No Hearing needs: No Vision needs: Yes Questionnaire PHQ-9 Over the last 2 weeks, how often have you been bothered by any of the following problems? 1. Little interest or pleasure in doing things: not at all 2. Feeling down, depressed, or hopeless: not at all 3. Trouble falling or staying asleep, or sleeping too much: not at all 4. Feeling tired or having little energy: not at all 5. Poor appetite or overeating: not at all 6. Feeling bad about yourself - or that you are a failure or have let yourself or your family down: not at all 7. Trouble concentrating on things, such as reading the newspaper or watching television: not at all 8. Moving or speaking so slowly that other people could have noticed. Or the opposite - being so fidgety or restless that you have been moving around a lot more than usual: not at all 9. Thoughts that you would be better off or of hurting yourself in some way: not at all Total score: 0 Depression Screening Interpretation: Negative Depression Screening Done: Yes Source: Developed by Drs. Maxim Solares, Bang Payne and colleagues, with an educational belle from [email or web address]. Thrive Questionnaire Date Thrive assessed: 07/05/23 Are you currently unemployed and looking for a job?: No AUDIT C Alcohol Use Questionnaire (AUDIT-C) 1. How often do you have a drink containing alcohol?: 2-3 times a week 2. How many drinks containing alcohol do you have on a typical day when you are drinking?: 1 or 2 3. How often do you have six or more drinks on one occasion?: Never Total Score: 3 Score Reviewed/Action Taken: Yes TRICIA-7 AMB Questionnaire TRICIA-7 Date TRICIA - 7 assessed: 07/05/23 Source: Developed by Drs. Maxim Solares, Bang Payne and colleagues, with an educational belle from [email or web address]. Review of Systems Const Denies chills, Denies headache(s) and Denies weight loss ENT Denies headache(s) Card Denies chest pain, Denies syncope, Denies irregular heart rhythm and Denies dyspnea Resp Denies chest congestion, Denies cough and Denies dyspnea GI Denies abdominal pain, Denies change in stool character, Denies nausea and Denies vomiting Musc Denies deformity and Denies joint swelling Neuro Denies syncope and Denies headache(s) Physical exam (Primary Care) Vital Signs: Last Vital Signs Pulse 89 01/24/24 14:06 BP 122/70 01/24/24 14:06 Pulse Ox 97 01/24/24 14:06 Oxygen Delivery Method Room Air 01/24/24 14:06 BMI result Body Mass Index 22.3 Tobacco/Smoking Status: Tobacco use Status Tobacco use date assessed 07/05/23 01/24/24 14:08 Patient Tobacco Use Status Never used Tobacco 01/24/24 14:08 Tobacco use type Cigarette 01/24/24 14:08 e-Cigarette/Vaping Use Never Used 01/24/24 14:08 PHQ-9: PHQ-9 Score PHQ-9: Total score 0 01/24/24 14:13 Depression Screening Interpretation: Negative Thrive Assessment: Date of Thrive Assessment Date Thrive assessed 07/05/23 01/24/24 14:08 Const General: cooperative, comfortable, no acute distress and alert Neck Neck: Yes no lymphadenopathy Thyroid: Thyroid normal Resp Effort & Inspection: normal respiratory effort Auscultation: clear to auscultation bilaterally Percussion: percussion normal Cardio Jugular venous distension: no JVD Palpation: normal PMI Rate: regular rate Rhythm: regular rhythm Heart sounds: S1 normal heart sound present and S2 normal heart sound present GI Inspection: Yes normal to inspection Palpation (GI): No hepatosplenomegaly present Skin General skin exam: no rashes or lesions noted Extrem General: Yes no clubbing, cyanosis or edema Coding Level of Care Code Est Pt Level 3 (76096) Diagnoses Hypertension I10 Additional Codes PHQ-9 - 78950 - PHQ-9 Billing: ([id number]) Assessment & Plan Assessment & Plan (1) Hypertension: Code(s): I10 - Essential (primary) hypertension Category: Medical Plan: stable; same rx Orders: Orders Comprehensive [place]. Panel Fast Today Z13.9 - Encounter for screening, unspecified Thyroid Stimulating Hormone Today Z13.29 - Encounter for screening for other suspected endocrine disorder Lipid Panel Today Z13.220 - Encounter for screening for lipoid disorders Complete Blood Count Auto Diff Today Z13.0 - Encounter for screening for diseases of the blood and blood-forming organs and certain disorders involving the immune mechanism
== END 2024-01-24 14:31 | disposition home or self-care (01) ==
PROVIDERS: PCP Internal Medicine; Visit Provider Internal Medicine
DX: I10 Essential (primary) hypertension (principal)

== ENCOUNTER → 2024-01-24 14:05 | Outpatient (BNVA) | payer OTHER, SELFPAY | PROVIDERS: PCP Internal Medicine; Visit Provider Internal Medicine | DX: I10 Essential (primary) hypertension (principal) | CPT/HCPCS: 96127 ==

== ENCOUNTER 2024-04-22 08:08 | Outpatient (REF) | payer OTHER, SELFPAY ==
--- OUTSIDE RECORDS SUMMARY | 2024-04-22 08:15 | XMS_ITS ---
Author Organization Maxim Loomis III, MD Address [address] [place] [address] Care Team Providers Care Financial Rep Name Role Phone Dontae Nelson MD Primary Care Provider [facility] [phone] Allergies Allergen (clinical drug ingredient) Drug/Non Drug Allergy documented on EMR Reaction Allergy Type Onset Date Status ibuprofen Ibuprofen stomach upset Drug Allergy Act tomeka azithromycin Zithromax diarrhea Drug Allergy Acti ve clindamycin Clindamycin HCl anaphylaxis Drug Allergy Active aspirin Aspirin stomach upset Drug Allergy Act tomeka amoxicillin Amoxicillin diarrhea Drug Allergy Act tomeka REASON FOR VISIT Breast cancer, Hypertension, Hyperlipidemia Medications Medication SIG (Take, Route, Frequency, Duration) Notes Start Date End Date Status Fluticasone Propionate As needed Active Claritin As needed Active Tolnaftate As needed Active amLODIPine Besylate 5 MG 1 tablet Orally Once a day Active Levothyroxine Sodium 50 MCG 1 tablet in the morning on an empty stomach Orally Once a day Active Atorvastatin Calcium 40 MG 1 tablet Oral ly Once a day Active Social History Tobacco Use: Social History Observation Description Date Details (start date - stop date) Never Smoker NA - NA Tobacco Use/Smoking Question Answer Notes Patient is a nonsmoker Additional Findings: Tobacco Non-User Aggressive non-smoker Alcohol Screen Question Answer Notes Did you have a drink contain ing alcohol in the past year? Yes How often did you have a dri nk containing alcohol in the past year? 2 to 4 times a month (2 points) How many drinks did you have on a typical day when you were drinking in the past year? 1 or 2 drinks (0 point) How often did you have 6 or more drinks on one occasion in the past year? Never (0 point) Points 2 Interpretation Negative Vital Signs Temperature 97.7 degrees Fahrenheit 11/02/19 23 Blood pressure systolic 126 mm Hg 11/02/19 23 Blood pressure diastolic 70 mm Hg 023 Heart Rate 88 /min 11/01/2022 Height 5 ft 6 in in 11/01/2022 Weight 140 lbs 11/01/2022 BMI 22.59 kg/m2 11/01/2022 Encounters Encounter Location Date Provider Diagnosis Maxim Loomis III, MD [address] [place] [id number] 11/01/2022 Maxim Loomis Breast cancer C50.91 9 ; HTN (hypertension) I10 and Other and unspecified hyperlipidemia E78.5 Assessments Encounter Date Diagnosis (ICD Code) Assessment Notes Treat ment Notes Treatment Clinical Notes 11/01/2022 Breast cancer (ICD-1 0 - C50.919) There is no sign of a new primary or recurrence. Is no sign of any other malignancy. There have been no cases of cancer in her family. Since her last visit. Surveillance was continued. 11/01/2022 HTN (hypertension) (ICD-10 - I10) Her blood pressure today is unremarkable at 126/70. No change in her therapy is needed. 11/01/2022 Other and unspecifie d hyperlipidemia (ICD-10 - E78.5) I recommended that she have periodic determination of her lipid values and maintain a normal weight and consume a diet low in animal fat. I recommended that she have her primary care physician obtain her lipids periodically. Plan Of Treatment Medication Medication Name Sig Start Date Stop Date Notes Fluticasone Propionate As needed Claritin As needed Tolnaftate As needed amLODIPine Besylate 5 MG 1 tablet Orally Once a day Levothyroxine Sodium 50 MCG 1 tablet in the morning on an empty stomach Orally Once a day Atorvastatin Calcium 40 MG 1 tablet Orally Once a day Pending Test Test Name Order Date MAMMOGRAM DIGITAL BILATERAL SCREEN 11/01 Next Appt Details Follow Up: 6 Months, Reason: ov review mammo [facility] 02/2023 Provider Name:Maxim Loomis, 05/13/2024 10:30:00 AM, [address], [place], [address], Progress Notes * Melonie LUCASDOB:1950 (71 yo F)Acc No.[id number]:11/01/2022 Progress Notes Patient:Melonie Klein Provider:?Maxim Loomis MD :1950???Age:71 Y???Sex:Female D ate:11/01/2022 Address:[address] [place] [address], [address], [id number] Pcp:Dontae Nelson MD Subjective: * Chief Complaints: * ???Breast cancerHypertension Hyperlipidemia * HPI: ???COVID-19 Screening:?Questions?Have you experienced fever, chills, cough, shortness of breath, difficulty breathing, muscle aches, loss of taste or smell??No ?Have you been exposed to the virus within the last 10 days??No ?Have you travelled internationally in the last 10 days??No ?Have you been exposed to COVID-19 in the past??No ? She returns to the office for surveillance of a history of cancer of the right breast. Since her last visit, she has had a normal mammogram. She is healthy and well. She has no findings on breast self-examination. Today's examination was unremarkable. Surveillance was continued without change. * ROS:?General/Constitutional:?pain?only normal aches and pains.?Chills?denies.?Fatigue?admits.?Fever?denies.?ENT:?Decreased hearing?denies.?Respiratory:?Cough?denies.?Cardiovascular:?Chest pain with exertion?denies.?Dyspnea on exertion?denies.?Shortness of breath?denies.?Gastrointestinal:?Constipation?occasional.?Decreased appetite?denies.?Diarrhea?denies.?Heartburn?denies.?Nausea?denies.?Rectal bleeding?denies.?Vomiting?denies.?Hematology:?bruising?denies.?petechiae?denies.?Swollen glands?none have been noted.?Genitourinary:?Frequent urination?denies.?Musculoskeletal:?Muscle aches?denies.?Painful joints?denies.?Sciatica?denies.?Weakness?denies.?Skin:?Itching?denies.?Rash?denies.?Skin lesion(s)?denies.?Neurologic:?Difficulty speaking?denies.?Dizziness?denies.?Headache?denies.?Low back pain?denies.?Psychiatric:?Depressed mood?denies.? * Medical History:? * Surgical History:?right r[address]le st lumpectomy and right axillary sentinel lymph node biobsy 01/2008stent right ureter, removed bilateral cataract surgery dental implant surgery Meniscus repair, Left knee * Hospitalization/Major Diagno stic Procedure:?Denies Past Hospitalization * Family History:?Father: dece ased 61 yrs, coronary artery disease, adult onset diabetes mellitus, diagnosed with DM.?Mother: alive 89 yrs, breast cancer at age 80, colon cancer, skin cancer, diagnosed with Cancer.?Paternal aunt: , adult onset diabetes mellitus.?1 brother(s) , 2 sister(s) . .? Her mother had 10 siblings , one of whom had gastric cancer. No other cases of breast or ovarian cancer are known in this family. * Social History:?Tobacco Use:?Tobacco Use/Smoking?Patient is a?nonsmoker ?Additional Findings: Tobacco Non-User?Aggressive non-smoker ???Drugs/Alcohol:?Drugs?Have you used drugs other than those for medical reasons in the past 12 months??Yes ?Marijuana??Yes Gummies to sleep at night ?Alcohol Screen?Did you have a drink containing alcohol in the past year??Yes ?How often did you have a drink containing alcohol in the past year??2 to 4 times a month (2 points) ?How many drinks did you have on a typical day when you were drinking in the past year??1 or 2 drinks (0 point) ?How often did you have 6 or more drinks on one occasion in the past year??Never (0 point) ?Points?2 ?Interpretation?Negative ???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 She was born in [place], [place]. * Medications:?TakingTolnaftat e , Notes: As neededClaritin , Notes: As neededFluticasone Propionate , Notes: As neededLevothyroxine Sodium 50 MCG Tablet 1 tablet in the morning on an empty stomach Orally Once a dayAtorvastatin Calcium 40 MG Tablet 1 tablet Orally Once a dayamLODIPine Besylate 5 MG Tablet 1 tablet Orally Once a dayMedication List reviewed and reconciled with the patientTaking Tolnaftate , Notes: As neededTaking Claritin , [...] reviewed and reconciled with the patient * Allergies:?Zithromax: diarrh eaAspirin: stomach upsetAmoxicillin: diarrheaClindamycin HCl: anaphylaxisIbuprofen: stomach upsetno[Allergies Verified] Objective: * Vitals:?Ht 5 ft 6 in, Wt140, BMI22.59, BP126/70, HR88, Temp97.7, Wt-kg 63.5. * Examination: ???General Examination: ?GENERAL APPEARANCE:?pleasant, well nourished, well developed, in no acute distress, calm and relaxed, woman.?HEAD:?atraumatic, normocephalic.?EYES:?eomi, perrla, anicteric, conjugate.?EARS:?normal.?NOSE:?septum intact.?ORAL CAVITY:?normal, unremarkable.?NECK/THYROID:?no jugular venous distention, no carotid bruit, thyroid normal.?LYMPH NODES:?no enlarged lymph nodes,spleen normal.?SKIN:?no suspicious lesions, anicteric.?HEART:?no clicks, gallops, murmurs, or rubs, regular rhythm, S1, S2 normal, no s3, or vascular bruits.?LUNGS:?clear to auscultation .?BREASTS:?no masses palpable bilaterally, right breast lumpectomy scar well-healed, symmetrical , nontender, no drainage, no discharge, no dimpling.?ABDOMEN:?bowel sounds normal, no ascites, no organomegaly, no mass.?RECTAL EXAM:?not examined.?MUSCULOSKELETAL:?extremities unremarkable, no clubbing, cyanosis or edema.?PERIPHERAL PULSES:?normal.?NEUROLOGIC:?alert and oriented, cranial nerves 2-12 grossly intact, deep tendon reflexes 2+ symmetrical, motor strength normal upper and lower extremities, sensory exam intact.?PSYCH:?alert, oriented.? Assessment: * Assessment: 1.?Breast cancer - C50.919 ( Primary), There is no sign of a new primary or recurrence. Is no sign of any other malignancy. There have been no cases of cancer in her family. Since her last visit. Surveillance was continued.?2.?HTN (hypertension) - I10, Her blood pressure today is unremarkable at 126/70. No change in her therapy is needed.?3.?Other and unspecified hyperlipidemia - E78.5, I recommended that she have periodic determination of her lipid values and maintain a normal weight and consume a diet low in animal fat. I recommended that she have her primary care physician obtain her lipids periodically.? Plan: * Treatment: 2.?Others? Continue Tolnaftate, Notes: As needed;?Continue Claritin, Notes: As needed;?Continue Fluticasone Propionate, Notes: As needed;?Continue Levothyroxine Sodium Tablet, 50 MCG, 1 tablet in the morning on an empty stomach, Orally, Once a day;?Continue Atorvastatin Calcium Tablet, 40 MG, 1 tablet, Orally, Once a day;?Continue amLODIPine Besylate Tablet, 5 MG, 1 tablet, Orally, Once a day.?? * Procedure Codes:? * Follow Up:?6 Months (Reason: ov review mammo [facility] 02/2023) * Sign off status: Completed true * Provider:?Maxim Loomis MD Date:?10/15 Generated for Anupama amaral/Robert/eTdaltonsmitting on:?04/22/2024 08:15 AM EST History and Physical Notes * HPI (History of Present Illness) Category Sub-Category Detail Notes COVID-19 Screening Questions Have you had any new onset fever, chills, cough, congestion, sore throat, shortness of breath, muscle aches?: No Have you been exposed to the virus withi n the last 10 days?: No Have you travelled internationally in e last 10 days?: No Have you been exposed to COVID-19 in the past?: No Examination Category Sub-Category Detail Notes General Examination GENERAL APPEARANCE: pleasant , well nourished, well developed, in no acute distress, calm and relaxed, woman HEAD: atraumatic, normocep halic EYES: eomi, [...] exam intact SKIN: no suspicious lesion s, anicteric PERIPHERAL PULSES: normal BREASTS: no masses palpable b ilaterally, right breast lumpectomy scar well- healed, symmetrical , nontender, no drainage, no discharge, no dimpling MUSCULOSKELETAL: extremities unremark able, no clubbing, cyanosis or edema LYMPH NODES: no enlarged lymph no amanda,spleen normal RECTAL EXAM: not examined PSYCH: alert, oriented ORAL CAVITY: normal, unremarkable
--- OUTSIDE RECORDS SUMMARY | 2024-04-22 08:15 | XMS_ITS ---
Author Organization Maxim Loomis III, MD Address [address] [place] [address] Care Team Providers Care Biology Research Assistant Name Role Phone Dontae Nelson MD Primary Care Provider Maxim Paul [phone] Allergies Allergen (clinical drug ingredient) Drug/Non Drug Allergy documented on EMR Reaction Allergy Type Onset Date Status ibuprofen Ibuprofen stomach upset Drug Allergy Act tomeka azithromycin Zithromax diarrhea Drug Allergy Acti ve clindamycin Clindamycin HCl anaphylaxis Drug Allergy Active aspirin Aspirin stomach upset Drug Allergy Act tomeka amoxicillin Amoxicillin diarrhea Drug Allergy Act tomeka REASON FOR VISIT History of early breast cancer, Hypertension, Hyperlipidemia Medications Medication SIG (Take, Route, Frequency, Duration) Notes Start Date End Date Status Meclizine HCl 50 MG 1 tablet as needed Orally Three times a day for 10 days 05/09/2023 Active amLODIPine Besylate 5 MG 1 tablet Orally Once a day Active Atorvastatin Calcium 40 MG 1 tablet Oral ly Once a day Active Levothyroxine Sodium 50 MCG 1 tablet in the morning on an empty stomach Orally Once a day Active Fluticasone Propionate As needed Active Claritin As needed Active Tolnaftate As needed Active Social History Tobacco Use: Social History Observation Description Date Details (start date - stop date) Never Smoker NA - NA Tobacco Use/Smoking Question Answer Notes Patient is a nonsmoker Additional Findings: Tobacco Non-User Aggressive non-smoker Vital Signs Temperature 97.3 degrees Fahrenheit 05/09/19 24 Blood pressure systolic 128 mm Hg 05/09/19 24 Blood pressure diastolic 70 mm Hg 024 Heart Rate 99 /min 05/09/2023 Height 5 ft 6 in in 05/09/2023 Weight 139 lbs 05/09/2023 BMI 22.43 kg/m2 05/09/2023 Encounters Encounter Location Date Provider Diagnosis Maxim Loomis III, MD [address] [place] [address] [place] [address] 05/09/2023 Maxim Loomis Encounter for screen ing mammogram for malignant neoplasm of breast Z12.31 ; Breast cancer C50.919 ; HTN (hypertension) I10 and Other and unspecified hyperlipidemia E78.5 Assessments Encounter Date Diagnosis (ICD Code) Assessment Notes Treat ment Notes Treatment Clinical Notes 05/09/2023 Encounter for screening mammogram for malignant neoplasm of breast (ICD-10 - Z12.31) Her annual mammogram has been ordered. 05/09/2023 Breast cancer (ICD-1 0 - C50.919) There is no sign of a new primary or recurrence. Is no sign of any other malignancy. There have been no cases of cancer in her family. Since her last visit. Surveillance was continued. 05/09/2023 HTN (hypertension) (ICD-10 - I10) Her blood pressure today is unremarkable at 128/70. No change in her therapy is needed. 05/09/2023 Other and unspecifie d hyperlipidemia (ICD-10 - E78.5) I recommended that she have periodic determination of her lipid values and maintain a normal weight and consume a diet low in animal fat. I recommended that she have her primary care physician obtain her lipids periodically. Plan Of Treatment Medication Medication Name Sig Start Date Stop Date Notes Meclizine HCl 50 MG 1 tablet as needed O rally Three times a day for 10 days 05/09/2023 amLODIPine Besylate 5 MG 1 tablet Orally Once a day Atorvastatin Calcium 40 MG 1 tablet Orally Once a day Levothyroxine Sodium 50 MCG 1 tablet in the morning on an empty stomach Orally Once a day Fluticasone Propionate As needed Claritin As needed Tolnaftate As needed Pending Test Test Name Order Date MAMMOGRAM DIGITAL BILATERAL SCREEN 05/09 Next Appt Details Follow Up: 12 months , Reaso n: OV no tests Provider Name:Maxim Loomis, 05/13/2024 10:30:00 AM, [address] [place] [address] [address], [place], [phone], Progress Notes * Melonie LUCASDOB:1950 (72 yo F)Acc No.[id number]:05/09/2023 Progress Notes Patient:Melonie Klein Provider:?Maxim Loomis MD :1950???Age:72 Y???Sex:Female D ate:05/09/2023 Address:[address] [place] [address], [address], [id number] Pcp:Dontae Nelson MD Subjective: * Chief Complaints: * ???History of early breast c ancerHypertensionHyperlipidemia * HPI: ???COVID-19 Screening:?Questions?Have you experienced fever, chills, cough, sore throat, shortness of breath, difficulty breathing, muscle aches, loss of taste or smell??No ?Have you been exposed to the virus within the last 10 days??No ?Have you travelled internationally in the last 10 days??No ?Have you been exposed to COVID-19 in the past??No ? She returns for ongoing surveillance of a history of carcinoma of the breast. She has not noticed any lumps or masses. She is up-to-date with mammography. Examination today was unremarkable. Follow-up was arranged. * ROS:?General/Constitutional:?pain?only normal aches and pains.?Chills?denies.?Fatigue?admits.?Fever?denies.?ENT:?Decreased hearing?denies.?Respiratory:?Cough?denies.?Cardiovascular:?Chest pain with exertion?denies.?Dyspnea on exertion?denies.?Shortness of breath?denies.?Gastrointestinal:?Constipation?occasional.?Decreased appetite?denies.?Diarrhea?denies.?Heartburn?denies.?Nausea?denies.?Rectal bleeding?denies.?Vomiting?denies.?Hematology:?bruising?denies.?petechiae?denies.?Swollen glands?none have been noted.?Genitourinary:?Frequent urination?at night.?Musculoskeletal:?Muscle aches?denies.?Painful joints?denies.?Sciatica?denies.?Weakness?denies.?Skin:?Itching?denies.?Rash?denies.?Skin lesion(s)?denies.?Neurologic:?Difficulty speaking?denies.?Dizziness?denies.?Headache?denies.?Low back pain?denies.?Psychiatric:?Depressed mood?denies.? * Medical History:? * Surgical History:?right rachele st lumpectomy and right axillary sentinel lymph node biobsy 01/2008stent right ureter, removed bilateral cataract surgery dental implant surgery Meniscus repair, Left knee * Hospitalization/Major Diagno stic Procedure:?No Hospitalization History. 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 She was born in [place], [place]. * Medications:?TakingTolnaftat e , Notes: As [...] HCl: anaphylaxisIbuprofen: stomach upsetno[Allergies Verified] Objective: * Vitals:?Ht: 5 ft 6 in, Wt:13 9, BMI:22.43, BP:128/70, HR:99, Temp:97.3. * Examination: ???General Examination: ?GENERAL APPEARANCE:?pleasant, well nourished, well developed, in no acute distress, calm and relaxed , woman.?HEAD:?atraumatic, normocephalic.?EYES:?eomi, perrla, anicteric, conjugate.?EARS:?normal.?NOSE:?septum intact.?ORAL CAVITY:?normal, unremarkable.?NECK/THYROID:?no jugular venous distention, no carotid bruit, thyroid normal.?LYMPH NODES:?no enlarged lymph nodes,spleen normal.?SKIN:?no suspicious lesions, anicteric.?HEART:?no clicks, gallops, murmurs, or rubs, regular rhythm, S1, S2 normal, no s3, or vascular bruits.?LUNGS:?clear to auscultation .?BREASTS:?no masses palpable bilaterally , no dimpling , no discharge , no drainage , nontender , symmetrical, Surgical scars right breast well-healed.?ABDOMEN:?bowel sounds normal, no ascites, no organomegaly, no mass.?RECTAL EXAM:?not examined.?MUSCULOSKELETAL:?extremities unremarkable, no clubbing, cyanosis or edema.?PERIPHERAL PULSES:?normal.?NEUROLOGIC:?alert and oriented, cranial nerves 2-12 grossly intact, deep tendon reflexes 2+ symmetrical, motor strength normal upper and lower extremities, sensory exam intact.?PSYCH:?alert, oriented.? Assessment: * Assessment: 1.?Breast cancer - C50.919, There is no sign of a new primary or recurrence. Is no sign of any other malignancy. There have been no cases of cancer in her family. Since her last visit. Surveillance was continued.?2.?Encounter for screening mammogram for malignant neoplasm of breast - Z12.31, Her annual mammogram has been ordered.?3.?HTN (hypertension) - I10, Her blood pressure today is unremarkable at 128/70. No change in her therapy is needed.?4.?Other and unspecified hyperlipidemia - E78.5, I recommended that she have periodic determination of her lipid values and maintain a normal weight and consume a diet low in animal fat. I recommended that she have her primary care physician obtain her lipids periodically.? Plan: * Treatment: 2.?Others? Start Meclizine HCl Tablet, 50 MG, 1 tablet as needed, Orally, Three times a day, 10 days, 30 Tablet, Refills 6.?? * Procedure Codes:? * Follow Up:?12 months (Reason : OV no tests ) * Images: * Sign off status: Completed true * Provider:?Maxim Loomis MD Date:?04/18 Generated for Anupama amaral/Robert/eTransmitting on:?04/22/2024 08:15 AM EST History and Physical Notes * HPI (History of Present Illness) Category Sub-Category Detail Notes COVID-19 Screening Questions Have you had any new onset fever, chills, cough, congestion, sore throat, shortness of breath, muscle aches?: No Have you been exposed to the virus withi n the last 10 days?: No Have you travelled internationally in last 10 days?: No Have you been [...] PULSES: normal BREASTS: no masses palpable b ilaterally , no dimpling , no discharge , no drainage , nontender , symmetrical, Surgical scars right breast well-healed MUSCULOSKELETAL: extremities unremark able, no clubbing, cyanosis or edema LYMPH NODES: no enlarged lymph no amanda,spleen normal RECTAL EXAM: not examined PSYCH: alert, oriented ORAL CAVITY: normal, unremarkable
--- OUTSIDE RECORDS SUMMARY | 2024-04-22 08:15 | XMS_ITS ---
Author Organization Maxim Loomis III, MD Address [address] [place] [address] Care Team Providers Care Process Machine Operator Name Role Phone Dontae Nelson MD Primary Care Provider Maxim Paul [phone] Allergies Allergen (clinical drug ingredient) Drug/Non Drug [...] Date Provider Diagnosis Maxim Loomis III, MD [address] [place] [address] [address] [place], [place] [phone] 08/25/2023 Maxim Loomis Encounter for screen ing [...] Next Appt Details Follow Up: As Scheduled, Bhavani son: OV Provider Name:Maxim Hoganrne, 05/13/2024 10:30:00 AM, [address] [place] [address] DR, [address], [place], [phone], Progress Notes * Melonie LUCASDOB:1950 (72 yo F)Acc No.[id number]:08/25/2023 Progress Notes Patient:?Melonie Lucas Provider:?Maxim Loomis MD :1950???Age:72 Y???Sex:Female D ate:08/25/2023 Address:[address] [place] [address], [address], [id number] Pcp:Dontae Nelson MD Subjective: * Chief Complaints: * ???Skin lesions right axilla History of breast cancerHypertensionHyperlipidemia * HPI: ???COVID-19 Screening:? She returns having noticed several red skin lesions in the right axilla. She has a history of carcinoma of the right breast treated with lumpectomy and radiation. She has felt no mass in either breast. She has no other skin lesions. She recently saw Makenzie Vega, her [facility] nurse practitioner, and was told she was healthy and well. On examination there were 4 small red areas in the axilla which appeared to be nonspecific dermatitis, not telangiectasia. The patient states that they're beginning to fade. She will call me if they worsen and I will try medication. At present she will be observed. ?Questions?Have you experienced fever, chills, cough, sore throat, shortness of breath, difficulty breathing, muscle aches, loss of taste or smell??No ?Have you been exposed to the virus within the last 10 days??No ?Have you travelled internationally in the last 10 days??No ?Have you been exposed to COVID-19 in the past??No * ROS:?General/Constitutional:?pain?only normal aches and pains.?Chills?denies.?Fatigue?admits.?Fever?denies.?ENT:?Decreased hearing?denies.?Respiratory:?Cough?denies.?Cardiovascular:?Chest pain with exertion?denies.?Dyspnea on exertion?denies.?Shortness of breath?denies.?Gastrointestinal:?Constipation?occasional.?Decreased appetite?denies.?Diarrhea?denies.?Heartburn?denies.?Nausea?denies.?Rectal bleeding?denies.?Vomiting?denies.?Hematology:?bruising?denies.?petechiae?denies.?Swollen glands?none have been noted.?Genitourinary:?Frequent urination?denies.?Musculoskeletal:?Muscle aches?denies.?Painful joints?denies.?Sciatica?denies.?Weakness?denies.?Skin:?Itching?denies.?Rash?denies.?Skin lesion(s)?Several small 1-2 mm areas of erythema right axilla.?Neurologic:?Difficulty speaking?denies.?Dizziness?denies.?Headache?denies.?Low back pain?denies.?Psychiatric:?Depressed mood?denies.? * Medical History:? 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 She was born in [place], [place]. * Medications:?TakingMeclizine HCl 50 MG Tablet 1 tablet as [...] 5 ft 6 in, Wt:13 9, BMI:22.43, BP:138/76, HR:83, Temp:98.1, Ht-cm: 167.64, Wt-k.05. * Examination: ???General Examination: ?GENERAL APPEARANCE:?pleasant, well nourished, well developed, in no acute distress, calm and relaxed , woman.?HEAD:?atraumatic, normocephalic.?EYES:?eomi, perrla, anicteric, conjugate.?EARS:?normal.?NOSE:?septum intact.?ORAL CAVITY:?normal, unremarkable.?NECK/THYROID:?no jugular venous distention, no carotid bruit, thyroid normal.?LYMPH NODES:?no enlarged lymph nodes,spleen normal.?SKIN:?no suspicious lesions, anicteric, 4 small nonspecific areas of erythema, macular papular, not raised, without blistering right axilla.?HEART:?no clicks, gallops, murmurs, or rubs, regular rhythm, S1, S2 normal, no s3, or vascular bruits.?LUNGS:?clear to auscultation .?BREASTS:?Right breast unremarkable rigght axilla no lesion or adenopathy, radiation tattoos, lumpectomy scar and axillary scar well-healed, left breast unremarkable.?ABDOMEN:?bowel sounds normal, no ascites, no organomegaly, no mass.?RECTAL EXAM:?not examined.?MUSCULOSKELETAL:?extremities unremarkable, no clubbing, cyanosis or edema.?PERIPHERAL PULSES:?normal.?NEUROLOGIC:?alert and oriented, cranial nerves 2-12 grossly intact, deep tendon reflexes 2+ symmetrical, motor strength normal upper and lower extremities, sensory exam intact.?PSYCH:?alert, oriented , cognitive function intact , cooperative with exam , good eye contact , judgement and insight good , mood/affect full range , speech clear , thought process logical, goal directed.? Assessment: * Assessment: 1.?Encounter for screening m ammogram for malignant neoplasm of breast - Z12.31, Her annual mammogram has been ordered.?2.?Dermatitis, unspecified - L30.9, She says she is resolving since she call for the appointment. At worst it will be a small area of fungal dermatitis. Will be observed at this time.?3.?HTN (hypertension) - I10, Her blood pressure today is unremarkable. No change in her therapy is needed.?4.?Breast cancer - C50.919, There is no sign of a new primary or recurrence. Is no sign of any other malignancy. There have been no cases of cancer in her family. Since her last visit. Surveillance was continued.?5.?Other and unspecified hyperlipidemia - E78.5, I recommended that she have periodic determination of her lipid values and maintain a normal weight and consume a diet low in animal fat. I recommended that she have her primary care physician obtain her lipids periodically.? Plan: * Treatment: 2.?Others? Continue Meclizine HCl Tablet, 50 MG, 1 tablet as needed, Orally, Three times a day.?? * Procedure Codes:? * Follow Up:?As Scheduled (Bhavani son: OV) * Images: * Sign off status: Completed true * Provider:?Maxim Loomis MD Date:?08/15 Generated for Anupama amaral/Robert/Markell on:?04/22/2024 08:15 AM EST History and Physical [...]
--- OUTSIDE RECORDS SUMMARY | 2024-04-22 08:15 | XMS_ITS | Patient Health Record ---
Author Organization Maxim Loomis III, MD Address [address] [place] [address] Care Team Providers Care Teacher Specialist Name Role Phone Dontae Nelson MD Primary Care Provider Maxim Paul [facility] [phone] Allergies Allergen (clinical drug ingredient) Drug/Non Drug Allergy documented on EMR Reaction Allergy Type Onset Date Status ibuprofen Ibuprofen stomach upset Drug Allergy Act tomeka azithromycin Zithromax diarrhea Drug Allergy Acti ve clindamycin Clindamycin HCl anaphylaxis Drug Allergy Active aspirin Aspirin stomach upset Drug Allergy Act tomeka amoxicillin Amoxicillin diarrhea Drug Allergy Act tomeka Reason For Referral No Information Medications Medication SIG (Take, Route, Frequency, Duration) Notes Start Date End Date Status amLODIPine Besylate 5 MG 1 tablet Orally Once a day Active Meclizine HCl 50 MG 1 tablet as needed Orally Three times a day 05/09/2023 Active Tolnaftate As needed Active Claritin As needed Active Levothyroxine Sodium 50 MCG 1 tablet in the morning on an empty stomach Orally Once a day Active Atorvastatin Calcium 40 MG 1 tablet Oral ly Once a day Active Fluticasone Propionate As needed Active Social History Tobacco Use: [...] Never (0 point) Points 2 Interpretation Negative Problems Problem Type SNOMED Code ICD Code Onset Dates Problem Status W/U Status Risk Notes Problem 826268718 Breast cancer (C50.919) Active confirmed There is no sign of a new primary or recurrence. Is no sign of any other malignancy. There have been no cases of cancer in her family. Since her last visit. Surveillance was continued. Problem 68547189 HTN (hypertension) (I10) Active confirmed Her blood pressure today is unremarkable. No change in her therapy is needed. Problem 34221728 Other and unspecified hyperlipidemia (E78.5) Active confirmed I recommended that she have periodic determination of her lipid values and maintain a normal weight and consume a diet low in animal fat. I recommended that she have her primary care physician obtain her lipids periodically. Vital Signs Heart Rate 83 /min 08/25/2023 Temperature 98.1 degrees Fahrenheit 08/25/2023 Blood pressure diastolic 76 mm Hg 08/25/2023 Height 5 ft 6 in in 08/25/2023 Blood pressure systolic 138 mm Hg 08/25/2023 Weight 139 lbs 08/25/2023 BMI 22.43 kg/m2 08/25/2023 Encounters Encounter Location Date Provider Diagnosis Maxim Loomis III, MD [address] [place] [address] [place] [phone] 05/09/2023 Maxim Loomis Encounter for screen ing mammogram for malignant neoplasm of breast Z12.31 ; Breast cancer C50.919 ; HTN (hypertension) I10 and Other and unspecified hyperlipidemia E78.5 Maxim Loomis III, MD [address] [place] [address] [place] [address] 08/25/2023 Maxim Loomis Encounter for screen ing mammogram for malignant neoplasm of breast Z12.31 ; Dermatitis, unspecified L30.9 ; HTN (hypertension) I10 ; Breast cancer C50.919 and Other and unspecified hyperlipidemia E78.5 Assessments Encounter Date Diagnosis (ICD Code) Assessment Notes Treat ment Notes Treatment Clinical Notes 05/09/2023 Breast cancer (ICD-1 0 - C50.919) There is no sign of a new primary or recurrence. Is no sign of any other malignancy. There have been no cases of cancer in her family. Since her last visit. Surveillance was continued. 05/09/2023 Encounter for screening mammogram for malignant neoplasm of breast (ICD-10 - Z12.31) Her annual mammogram has been ordered. 08/25/2023 Dermatitis, unspecified (ICD-10 - L30.9) She says she is resolving since she call for the appointment. At worst it will be a small area of fungal dermatitis. Will be observed at this time. 08/25/2023 Encounter for screening mammogram for malignant neoplasm of breast (ICD-10 - Z12.31) Her annual mammogram has been ordered. 05/09/2023 HTN (hypertension) (ICD-10 - I10) Her blood pressure today is unremarkable at 128/70. No change in her therapy is needed. 08/25/2023 HTN (hypertension) (ICD-10 - I10) Her [...] primary care physician obtain her lipids periodically. 08/25/2023 Breast cancer (ICD-1 0 - C50.919) [...] obtain her lipids periodically. Plan Of Treatment Pending Test Test Name Order Date MAMMOGRAM DIGITAL BILATERAL DIAGNO 02/19 MAMMOGRAM DIGITAL BILATERAL DIAGNO 05/01 MAMMOGRAM DIGITAL BILATERAL DIAGNO 05/03 MAMMOGRAM DIGITAL BILATERAL SCREEN 05/09 MAMMOGRAM DIGITAL BILATERAL SCREEN 01/14 MAMMOGRAM DIGITAL BILATERAL SCREEN 11/01 MAMMOGRAM DIGITAL UNILATERAL DIONTE LT 07/17 US BREAST LEFT 08/05/2021 Next Appt Details Provider Name:Maxim Loomis, 05/13/2024 10:30:00 AM, [address] [place] [address] , [address], 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
[2024-04-22 10:19] LABS: MANUAL DIFF FLAG NO
[2024-04-22 10:31] LABS: Basophils Absolute Auto 0.1 X10*3/uL (0.0-0.2); Eosinophils Absolute Auto 0.1 X10*3/uL (0.0-0.4); Eosinophils Percent Auto 2.3 % (0-4); Hematocrit 45.4 % (37.0-47.0); Hemoglobin 15.2 g/dl (12.0-16.0); Lymphocytes Percent Auto 42.6 % (20-40); Mean Corpuscular HGB Conc 33.5 g/dl (31.0-35.0); Mean Corpuscular Hemoglobin 31.9 pg (27.0-33.0); Mean Corpuscular Volume 95.2 fL (80.0-98.0); Mean Platelet Volume 9.6 fL (9.4-12.3); Monocytes Absolute Auto 0.4 X10*3/uL (0.1-1.2); Monocytes Percent Auto 7.9 % (2-11); Neutrophils Absolute Auto 2.2 x10*3/uL (2.0-8.3); Neutrophils Percent Auto 46.2 % (45-73); Platelet Count 245 X10*3/uL (160-400); Red Blood Count 4.77 X10*6/uL (4.20-5.50); Red Cell Distribution Width 11.6 % (11.0-16.0); White Blood Count 4.8 X10*3/uL (4.8-10.8)
[2024-04-22 12:19] LABS: Alanine Aminotransferase 25 U/L (0-31); Alkaline Phosphatase 109 U/L (39-117); Anion Gap 10 (12-20); Aspartate Amino Transferase 27 U/L (5-31); Blood Urea Nitrogen 13 mg/dL (9-16); Calcium 9.5 mg/dL (8.4-10.2); Carbon Dioxide 29 mmol/L (22-29); Chloride 107 mmol/L (96-108); Cholesterol 190 mg/dL (<200); Estimated Glomerular Filt Rate > 60; Glucose Fasting 90 mg/dL (60-99); HDL Cholesterol 54 mg/dL (>40); LDL Cholesterol Calculated 113 mg/dL (<100); Potassium 4.2 mmol/L (3.3-5.1); Sodium 142 mmol/L (135-145); Total Protein 6.9 g/dL (6.5-8.0); Triglycerides 115 mg/dL (<150)
[2024-04-22 12:24] LABS: Thyroid Stimulating Hormone 3.27 uIU/mL (0.32-4.0)
[2024-04-22 12:27] LABS: Bilirubin Total 0.5 mg/dL (0.0-1.0)
== END 2024-04-22 08:09 | disposition home or self-care (01) ==
LOC: HO.10HDL 08:08
PROVIDERS: Visit Provider Internal Medicine
DX: Z13.220 Encounter for screening for lipoid disorders (principal); Z13.29 Encounter for screening for other suspected endocrine disorder; Z13.0 Encounter for screening for diseases of the blood and blood-forming organs and certain disorders involving the immune mechanism; Z13.6 Encounter for screening for cardiovascular disorders
CPT/HCPCS: 36415; 80053; 80061; 84443; 85025

== ENCOUNTER 2024-04-26 09:23 | Outpatient (AMB) | payer OTHER, SELFPAY ==
--- OUTSIDE RECORDS SUMMARY | 2024-04-26 09:28 | XMS_ITS | Patient Health Record ---
Author Organization Maxim Loomis III, MD Address [address] [place] [address] Care Team Providers Care Nutter Up Name Role Phone Dontae Nelson MD Primary Care Provider Maxim Paul [facility] [phone] Allergies Allergen (clinical drug ingredient) Drug/Non Drug [...] Problem Status W/U Status Risk Notes Problem [id number] Breast cancer (C50.919) Active confirmed There is no sign of a new primary or recurrence. Is no sign of any other malignancy. There have been no cases of cancer in her family. Since her last visit. Surveillance was continued. Problem 53148506 HTN (hypertension) (I10) Active confirmed Her blood pressure today is unremarkable. No change in her therapy is needed. Problem 94679000 Other and unspecified hyperlipidemia (E78.5) Active confirmed [...] Date Provider Diagnosis Maxim Loomis III, MD [address] [place] [address] [place] [phone] 05/09/2023 Maxim Loomis Encounter for screen ing mammogram for malignant neoplasm of breast Z12.31 ; Breast cancer C50.919 ; HTN (hypertension) I10 and Other and unspecified hyperlipidemia E78.5 Maxim Loomis III, MD [address] [place] [address] [place] [address] 08/25/2023 Maxim Loomis Encounter for screen ing [...] Details Provider Name:Maxim Loomis, 05/13/2024 10:30:00 AM, [address] [place] [address] , [address], [facility] [phone], Insurance Providers Payer Name Payer Address Payer Phone Subscriber Number Group Number Insured Name Patient Relationship to Insured Coverage Start Date Coverage End Date [address] [place] [address] [id number] Melonie Lucas Self - patient is the insured Medical (General) History Medical History History ICD Code hypertension hyperlipidemia 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
--- OUTSIDE RECORDS SUMMARY | 2024-04-26 09:28 | XMS_ITS ---
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 Name Role Phone Dontae Nelson MD Primary Care Provider Maxim Paul [phone] Allergies Allergen (clinical drug ingredient) Drug/Non Drug [...] Date Provider Diagnosis Maxim Loomis III, MD [address] [place] [address] [place] [address] 05/09/2023 Maxim Loomis Encounter for screen ing [...] tests Provider Name:Maxim Loomis, 05/13/2024 10:30:00 AM, [address] [place] [address] [address], [place], [address], Progress Notes * Melonie LUCASDOB:1950 (72 yo F)Acc No.[id number]:05/09/2023 Progress Notes Patient:Melonie Klein Provider:?Maxim Loomis MD :1950???Age:72 Y???Sex:Female D ate:05/09/2023 Address:[address] [place] [address], [address], [id number] Pcp:Dontae Nelson MD Subjective: * Chief Complaints: [...] Tobacco Non-User?Aggressive non-smoker ???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 She was born in [place], [place]. * Medications:?TakingTolnaftat e , Notes: As [...] Loomis MD Date:?04/18 Generated for Anupama amaral/Robert/eTransmitting on:?04/26/2024 09:28 AM EST History and Physical Notes * HPI (History of Present Illness) Category Sub-Category Detail Notes COVID-19 Screening Questions Have you had any new onset fever, chills, cough, congestion, sore throat, shortness of breath, muscle aches?: No Have you been exposed to the virus withi n the last 10 days?: No Have you travelled internationally in [facility] last 10 days?: No Have you [...]
--- OUTSIDE RECORDS SUMMARY | 2024-04-26 09:28 | XMS_ITS ---
Author Organization Maxim Loomis III, MD Address [address] [place] [address] Care Team Providers Care Residential Plumber Name Role Phone Dontae Nelson MD Primary Care Provider Maxim Paul [facility] [phone] Allergies Allergen (clinical drug ingredient) Drug/Non Drug [...] Provider Diagnosis Maxim Loomis III, MD [address] [place] [address] 11/01/2022 Maxim Loomis Breast cancer C50.91 9 [...] Provider Name:Maxim Loomis, 05/13/2024 10:30:00 AM, [address], [place], [address], Progress Notes * Melonie LUCASDOB:1950 (71 yo F)Acc No.[id number]:11/01/2022 Progress Notes Patient:Melonie Klein Provider:?Maxim Loomis MD :1950???Age:71 Y???Sex:Female D ate:11/01/2022 Address:[address] [place] [address], [address], [place] Pcp:Dontae Nelson MD Subjective: * Chief Complaints: [...] ?Points?2 ?Interpretation?Negative ???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 She was born in [place], [place]. * Medications:?TakingTolnaftat e , Notes: As [...] Loomis MD Date:?10/15 Generated for Anupama amaral/Robert/eTdaltonsmitting on:?04/26/2024 09:28 AM EST History and Physical [...]
--- NOTE | 2024-04-26 09:30 | A.OFFPC_ITS ---
Vital Signs 04/26/24 09:32 Height 5 ft 5.5 in Weight 139 lb 2 oz BMI 22.8 BP 132/62 Blood Pressure Location Lt brachial Position Sitting Pulse 90 Pulse Source Pulse Oximeter Pulse Oximetry (%) 99 Oxygen Delivery Method Room Air Intake Visit Reasons: 3mth f/u Intake Note: Patient is here to follow up on HTN, HLD. International Nurse Required: No Department Store Manager: Not Required per policy Accompanied by: Self / Same As Patient Allergies amoxicillin [AMOXICILLIN] Allergy (Mild, Verified 04/26/24 09:32) DIARRHEA aspirin [Aspirin] Allergy (Mild, Verified 04/26/24 09:32) UPSET STOMACH azithromycin [From Zithromax] Adverse Reaction (Mild, Verified 04/26/24 09:32) DIARRHEA ibuprofen [From ADVIL] Adverse Reaction (Mild, Verified 04/26/24 09:32) GI UPSET oxycodone [From PERCOCET] Adverse Reaction (Mild, Verified 04/26/24 09:32) CAUSES LOOPINESS Tobacco use date assessed: 04/26/24 Fall risk assessment: No Falls in past year Last assessed Fall Risk: 04/26/24 Dental Screening Dental Screen Date: 04/26/24 Did you have a dental visit in the last 12 months?: Yes Did you have a dental problem in the last 6 months where you did not have access to dental care?: No Was dental information given to patient?: Patient has dentist HPI 3mth f/u HPI Details HTN on Rx; doing well; compliant [facility] Medical History Fibroid Hydronephrosis Cyst of kidney, acquired Tendinitis involving right hip abductors Hypothyroidism Surgical History History of dental surgery History of cataract surgery History of knee surgery History of renal stent History of hysteroscopy History of lumpectomy of right breast Family History Father Diabetes CVD (cardiovascular disease) Hypertension Heart disease Mother Breast cancer Colon cancer Sister No problems noted. Family/Other Ovarian cancer Social History Housing: House Alcohol intake: current Alcohol intake frequency: holidays/special occasions only Patient Tobacco Use Status: Never used Tobacco Tobacco use type: Cigarette e-Cigarette/Vaping Use: Never Used Second Hand Smoke Exposure: No Advance Directives Date on File: 01/22/20 service: No Current occupational status: retired Cognitive needs: No Hearing needs: No Vision needs: Yes (Glasses) Questionnaire PHQ-9 Over the last 2 weeks, how often have you been bothered by any of the following problems? 1. Little interest or pleasure in doing things: not at all 2. Feeling down, depressed, or hopeless: not at all 3. Trouble falling or staying asleep, or sleeping too much: not at all 4. Feeling tired or having little energy: not at all 5. Poor appetite or overeating: not at all 6. Feeling bad about yourself - or that you are a failure or have let yourself or your family down: not at all 7. Trouble concentrating on things, such as reading the newspaper or watching television: not at all 8. Moving or speaking so slowly that other people could have noticed. Or the opposite - being so fidgety or restless that you have been moving around a lot more than usual: not at all 9. Thoughts that you would be better off or of hurting yourself in some way: not at all Total score: 0 Depression Screening Interpretation: Negative Depression Screening Done: Yes Source: Developed by Drs. Maxim Solares, Aileen Leblanc, Bang Lawton and colleagues, with an educational belle from [employer]. Thrive Questionnaire Date Thrive assessed: 04/26/24 I am a: Patient What is your living situation today?: I have a steady place to live Within the past 12 months, did the food you bought not last and you didn't have the money to get more?: Never true Within the past 12 months, did you worry whether your food would run out before you got money to buy more?: Never true Do you have trouble paying for medicines?: No Do you have trouble getting transportation to medical appointments?: No Do you have trouble paying your heating and electricity bill?: No Do you have trouble taking care of your child, family member or friend?: No Do you have trouble with day-to-day activities such as bathing, preparing meals, shopping, managing finances, etc.?: No Are you currently unemployed and looking for a job?: No Are you interested in more education?: No Currently or been in a relationship where the following occur: No concerns reported THRIVE Score: 0 AUDIT C Alcohol Use Questionnaire (AUDIT-C) 1. How often do you have a drink containing alcohol?: Monthly or less 2. How many drinks containing alcohol do you have on a typical day when you are drinking?: 1 or 2 3. How often do you have six or more drinks on one occasion?: Never Total Score: 1 TRICIA-7 AMB Questionnaire TRICIA-7 Date TRICIA - 7 assessed: 04/26/24 Feeling nervous, anxious, or on edge: 0 = Not at all Not being able to stop or control worryin = Not at all Worrying too much about different things: 0 = Not at all Trouble relaxin = Not at all Being so restless that it is hard to sit still: 0 = Not at all Becoming easily annoyed or irritable: 0 = Not at all Feeling afraid as if something awful might happen: 0 = Not at all Total TRICIA-7 score (0-4 normal; 5-9 mild; 10-14 moderate; 15-21 severe): 0 Source: Developed by Drs. Maxim Solares, Aileen Leblanc, Bang Lawton and colleagues, with an educational belle from [employer]. Review of Systems Const Denies chills, Denies headache(s) and Denies weight loss ENT Denies headache(s) Card Denies chest pain, Denies syncope, Denies irregular heart rhythm and Denies dyspnea Resp Denies chest congestion, Denies cough and Denies dyspnea GI Denies abdominal pain, Denies change in stool character, Denies nausea and Denies vomiting Musc Denies deformity and Denies joint swelling Neuro Denies syncope and Denies headache(s) Physical exam (Primary Care) Vital Signs: Last Vital Signs Pulse 90 04/26/24 09:32 BP 132/62 04/26/24 09:32 Pulse Ox 99 04/26/24 09:32 Oxygen Delivery Method Room Air 04/26/24 09:32 BMI result Body Mass Index 22.8 Tobacco/Smoking Status: Tobacco use Status Tobacco use date assessed 04/26/24 04/26/24 09:36 Patient Tobacco Use Status Never used Tobacco 04/26/24 09:36 Tobacco use type Cigarette 04/26/24 09:36 e-Cigarette/Vaping Use Never Used 04/26/24 09:36 PHQ-9: PHQ-9 Score PHQ-9: Total score 0 04/26/24 09:36 Depression Screening Interpretation: Negative Thrive Assessment: Date of Thrive Assessment Date Thrive assessed 04/26/24 04/26/24 09:36 Currently or been in a relationship where the following occur: No concerns reported Const General: cooperative, comfortable, no acute distress and alert Neck Neck: Yes no lymphadenopathy Thyroid: Thyroid normal Resp Effort & Inspection: normal respiratory effort Auscultation: clear to auscultation bilaterally Percussion: percussion normal Cardio Jugular venous distension: no JVD Palpation: normal PMI Rate: regular rate Rhythm: regular rhythm Heart sounds: S1 normal heart sound present and S2 normal heart sound present GI Inspection: Yes normal to inspection Palpation (GI): No hepatosplenomegaly present Skin General skin exam: no rashes or lesions noted Extrem General: Yes no clubbing, cyanosis or edema Coding Level of Care Code Est Pt Level 3 (61848) Diagnoses Hypertension I10 Assessment & Plan Assessment & Plan (1) Hypertension: Code(s): I10 - Essential (primary) hypertension Category: Medical Plan: stable; same rx Orders: Orders PT Evaluation and Treatment Today R42 - Dizziness and giddiness
[2024-04-26 09:32] VITALS: BP 132/62; PULSE 90; O2SAT 99; BMI 22.8
== END 2024-04-26 10:09 | disposition home or self-care (01) ==
PROVIDERS: PCP Internal Medicine; Visit Provider Internal Medicine
DX: I10 Essential (primary) hypertension (principal)

== ENCOUNTER 2024-07-09 13:19 | Outpatient (AMB) | payer OTHER, SELFPAY ==
--- NOTE | 2024-07-09 13:22 | A.OFFVIS_ITS ---
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 She is doing well with precision assembler bench concerns: occasional itching by vulvar skin tag, onset my whole life . Currently not sexually active. Denies any vaginal dryness or irritation. Attempting to eat a healthy diet with calcium and vitamin D and stays active with exercise. Last mammogram; 2023. History of fibroid. Colonoscopy is due this year. History of right breast. PENDING SALE TO [facility] Medical History Fibroid Hydronephrosis Cyst of kidney, acquired Tendinitis involving right hip abductors Hypothyroidism Surgical History History of dental surgery History of cataract surgery History of knee surgery History of renal stent History of hysteroscopy History of lumpectomy of right breast Family History (Updated 07/09/24 @ 13:28 by MURIEL Enamorado) Father Diabetes CVD (cardiovascular disease) Hypertension Heart disease Mother Breast cancer Colon cancer Sister No problems noted. Family/Other Ovarian cancer Social History Housing: House Alcohol intake: current Alcohol intake frequency: holidays/special occasions only Patient Tobacco Use Status: Never used Tobacco Tobacco use type: Cigarette e-Cigarette/Vaping Use: Never Used Second Hand Smoke Exposure: No Advance Directives Date on File: 01/22/20 service: No Current occupational status: retired Cognitive needs: No Hearing needs: No Vision needs: Yes (Glasses) Female Reproductive History Menstrual Total pregnancies: 0 Date of last pap smear: 09/22/15 (neg pap and hpv) Date of Mammogram: 03/01/24 (Birad 2) Review of Systems Const All systems reviewed & are unremarkable except as noted in HPI and below Reports as per HPI Eyes Reports no additional complaints ENT Reports no additional complaints Card Reports no additional complaints Resp Reports no additional complaints GI Reports as per HPI and Reports no additional complaints Reports as per HPI Musc Reports no additional complaints Skin/Breast Reports as per HPI Neuro Reports no additional complaints Psych Reports no additional complaints Endo Reports no additional complaints Nazario/Lymph Reports no additional complaints Aller/Immun Reports no additional complaints Physical Exam Vital Signs: Last Vital Signs BP 122/74 07/09/24 13:24 BMI result Body Mass Index 22.0 Const General: cooperative, healthy appearing, no acute distress, well developed and alert Orientation/consciousness: patient oriented x3 HEENT Head: Yes normal to inspection Eyes General: appearance normal, both eyes and all related structures Neck Neck: Yes normal visual inspection Thyroid: Thyroid normal Chest Other: Scar right breast Chest palpation & inspection: normal inspection of the chest and other (no puckering, dimpling, peau de orange, retraction, discharge, masses) Breast/axilla inspection: normal inspection of the breasts Breast/axilla palpation: normal palpation of the breasts Resp Effort & Inspection: normal respiratory effort GI Inspection: Yes normal to inspection Palpation (GI): Soft to palpation Rectal Exam - Female: deferred General: Yes bladder normal to palpation External Female Exam: normal external appearance and normal appearance of the urethra Speculum Exam - Vagina: normal palpation and vagina atrophic Speculum Exam - Cervix: normal appearance of the cervix and normal palpation Bimanual exam- vagina & uterus: normal bimanual exam, normal palpation, uterine size normal, bladder normal to palpation, normal palpation and non-tender Bimanual Exam- Adnexa, other: no masses Skin General skin exam: no rashes or lesions noted Rashes: no rashes Neuro General: patient oriented x3 Cognition (Neuro): normal cognition Extrem General: Yes normal to inspection Psych Attitude: cooperative Thought process: Normal thought process present Assessment & Plan Assessment & Plan (1) Encounter for well woman exam with routine gynecological exam: Code(s): Z01.419 - Encounter for gynecological examination (general) (routine) without abnormal findings Category: Medical Plan: Discussed: Current recommendations for pap smears per ASCCP guidelines. Breast awareness, periodic self breast exams and yearly mammogram. Maintain a healthy lifestyle, well balanced diet including Calcium 1,200 mg and Vitamin D 600 IU daily, and routine exercise. Contact the office with any postmenopausal bleeding. Patient verbalizes understanding and agrees to the plan of care. She was given opportunity to ask questions and all questions were answered to the best of my ability. RTO in 1 year for annual precision assembler bench exam. This note is constructed using voice recognition software. While every effort has been made to ensure accuracy, clinical field specialist errors may have been included. (2) Leiomyoma: Code(s): D21.9 - Benign neoplasm of connective and other soft tissue, unspecified Plan Counseled re: Leiomyoma: common pelvic neoplasm. Differential diagnosis-may include but not limited to- leiomyosarcoma which is a rare uterine sarcoma 3- 7/100,000, difficult to distinguish from fibroids on ultrasound from uterine sarcoma's. Unlikely any single test will have a highly positive predictive value. Hysterectomy is not recommended for sole purpose of excluding malignant neoplasm. Consult for surgical exploration, medical treatment, other treatments, verses expectant management, pros and cons, risks and benefits. Discussed fibroid- reviewed last ultrasound. Patient is anxious about her fibroid and is concerned due to the limitations of the exam and discomfort during the exam with significant atrophic changes, retroverted uterus. She would like to be monitored. Advised to transabdominal scan to see views, if limited could consider MRI if indicated. Patient is comfortable with this plan. Advised to call with any pelvic pain, pelvic pressure bloating or vaginal bleeding. The patient expressed understanding and agreement with the plan of care. All of her questions and concerns were addressed to the best of my ability. Plan follow up to discuss results. Orders: Orders US pelvic complete Today D21.9 - Benign neoplasm of connective and other soft tissue, unspecified Coding Level of Care Code Est Pt Prev Care >65y(67124) Diagnoses Encounter for well woman exam with routine gynecological exam Z01.419 Leiomyoma D21.9
[2024-07-09 13:24] VITALS: BP 122/74; BMI 22.0
--- OUTSIDE RECORDS SUMMARY | 2024-07-09 16:09 | XMS_ITS | Patient Health Record ---
Author Organization Maxim Loomis III, MD Address [address] [place] [address] Care Team Providers Care Stitcher Utility Name Role Phone Dontae Nelson MD Primary Care Provider [facility] [phone] Allergies Allergen (clinical drug ingredient) Drug/Non Drug Allergy documented on EMR Reaction Allergy Type Onset Date Status azithromycin Zithromax diarrhea Drug Allergy Acti ve clindamycin Clindamycin HCl anaphylaxis Drug Allergy Active aspirin Aspirin stomach upset Drug Allergy Act tomeka amoxicillin Amoxicillin diarrhea Drug Allergy Act tomeka ibuprofen Ibuprofen stomach upset Drug Allergy Act tomeka Reason For Referral [...] a day As needed As needed Active Social History Tobacco Use: [...] Problem Status W/U Status Risk Notes Problem 973877972 Breast cancer (C50.919) Active confirmed There is no sign of a new primary or recurrence. Is no sign of any other malignancy. There have been no cases of cancer in her family. Since her last visit. Surveillance was continued. Problem [id number] Encounter for screening mammogram for malignant neoplasm of breast (Z12.31) Active confirmed Her annual mammogram has been ordered. Problem 70230003 HTN (hypertension) (I10) Active confirmed Her blood pressure today is unremarkable. No change in her therapy is needed. Problem 07263403 Other and unspecified hyperlipidemia (E78.5) Active confirmed I recommended that she have periodic determination of her lipid values and maintain a normal weight and consume a diet low in animal fat. I recommended that she have her primary care physician obtain her lipids periodically. Vital Signs Heart Rate 80 /min 05/13/2024 Temperature 97.9 degrees Fahrenheit 05/13/2024 Blood pressure diastolic 77 mm Hg 05/13/2024 Height 5 ft 6 in in 08/25/2023 Blood pressure systolic 133 mm Hg 05/13/2024 Weight 140 lbs 05/13/2024 BMI 22.59 kg/m2 05/13/2024 Encounters Encounter Location Date Provider Diagnosis Maxim Loomis III, MD [address] [place] [address] [place] [address] 08/25/2023 Maxim Loomis Encounter for screen ing mammogram for malignant neoplasm of breast Z12.31 ; Dermatitis, unspecified L30.9 ; HTN (hypertension) I10 ; Breast cancer C50.919 and Other and unspecified hyperlipidemia E78.5 Maxim Loomis III, MD [address] [place] [address] [place] [address] 05/13/2024 Maxim Loomis Encounter for screen ing mammogram for malignant neoplasm of breast Z12.31 ; Breast cancer C50.919 ; HTN (hypertension) I10 and Other and unspecified hyperlipidemia E78.5 Assessments Encounter Date Diagnosis (ICD Code) Assessment Notes Treat ment Notes Treatment Clinical Notes 08/25/2023 Dermatitis, unspecified (ICD-10 - L30.9) She [...] her last visit. Surveillance was continued. 05/13/2024 Encounter for screening mammogram for malignant neoplasm of breast (ICD-10 - Z12.31) Her annual mammogram has been ordered. 08/25/2023 HTN (hypertension) (ICD-10 - I10) Her blood pressure today is unremarkable. No change in her therapy is needed. 05/13/2024 HTN (hypertension) (ICD-10 - I10) Her blood pressure today is unremarkable. No change in her therapy is needed. 08/25/2023 Breast cancer (ICD-1 0 - C50.919) There is no sign of a new primary or recurrence. Is no sign of any other malignancy. There have been no cases of cancer in her family. Since her last visit. Surveillance was continued. 05/13/2024 Other and unspecifie d hyperlipidemia (ICD-10 - E78.5) I recommended that she have periodic determination of her lipid values and maintain a normal weight and consume a diet low in animal fat. I recommended that she have her primary care physician obtain her lipids periodically. 08/25/2023 Other and unspecifie d hyperlipidemia (ICD-10 [...] BILATERAL DIAGNO 05/03 MAMMOGRAM DIGITAL BILATERAL SCREEN 01/14 MAMMOGRAM DIGITAL BILATERAL SCREEN 11/01 MAMMOGRAM DIGITAL BILATERAL SCREEN 05/09 MAMMOGRAM DIGITAL UNILATERAL DIONTE LT 07/17 US BREAST LEFT 08/05/2021 Next Appt Details Provider Name:Maxim Loomis, 05/13/2025 10:00:00 AM, [address] [place] [address] , [address], [place], [phone], Insurance Providers Payer Name Payer Address Payer Phone Subscriber Number Group Number Insured Name Patient Relationship to Insured Coverage Start Date Coverage End Date [facility] ([facility]) [address] [place] [id number] Melonie Lucas Self - patient is the insured Medical (General) History Medical History History ICD Code hypertension hyperlipidemia 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
--- OUTSIDE RECORDS SUMMARY | 2024-07-09 16:09 | XMS_ITS | Clinical Summary ---
Author Organization [facility] Address [address] [place] [address] Phone Care Team Providers Care Fire Prevention Captain Name Role Phone Dontae Nelson MD Primary Care Provider [phone] Surgical History Surgery Date Site/Laterality Comments STEREOTACTIC CORE BIOPSY 01/10/2008 Right BREAST LUMPECTOMY Right Medical History Medical History Date Comments BRCA1 gene mutation negative Ductal carcinoma in situ of breast Breast cancer Family History Medical History Relation Name Comments Breast cancer Mother Relation Name Status Comments Mother Social History Tobacco Use Types Packs/Day Years Used Date Smoking Tobacco: Never Assessed Comments No Sex and Gender Information Value Date Recorded Sex Assigned at Not on file Legal Sex Female 1:27 AM EST Gender Identity Not on file Sexual Orientation Not on file Obstetrics History Last Filed Vital Signs Vital Sign Reading Time Taken Comments Blood Pressure - - Pulse - - Temperature - - Respiratory Rate - - Oxygen Saturation - - Inhaled Oxygen Concentration - - Weight 61.7 kg (136 lb) 03/01/2024 9:46 AM EST Height 165.1 cm (5' 5 ) 03/01/2024 9:46 AM EST Body Mass Index 22.63 03/01/2024 9:46 AM EST Plan of Treatment Upcoming Encounters Date Type Department Care Team (Late st Contact Info) Description 03/03/2025 9:30 AM EST [facility]ointment [facility] [address] [address] Health Maintenance Due Date Last Done Comments Colorectal Cancer Screening: Colonoscopy 03/20/2022 Depression Screening 03/20/2022 Falls Risk Assessment 03/20/2022 Hepatitis C Screening 03/20/2022 Osteoporosis Screening (Bone Density Screening) 03/20/2022 Social Influencers of Health Screening 03/20/2022 RSV Immunization Patients 60+ Years Old (1 - 1-dose 75+ series) 2024 DTaP,Tdap,and Td Vaccines (2 - Td or Tdap) 07/23/2025 07/24/2015 Breast Cancer Screening 03/01/2026 03/01/20, 02/27/2023, 02/23/2022, Additional history exists Zoster Vaccines Completed 02/09/2022, 12/08/2021 Pneumococcal Vaccine: 50+ Years Completed 04/07/2022, 03/16/2015 Influenza Vaccine Completed 01/16/2024, , 01/16/2022, Additional history exists COVID-19 Vaccine Completed 01/23/2024, , 02/14/2022, Additional history exists HIB Vaccines Aged Out No longer eligi ble based on patient's age to complete this topic HPV Vaccines Aged Out No longer eligi ble based on patient's age to complete this topic Hepatitis A Vaccines Aged Out No long er eligible based on patient's age to complete this topic Hepatitis B Vaccines Aged Out No long er eligible based on patient's age to complete this topic IPV Vaccines Aged Out No longer eligi ble based on patient's age to complete this topic MMR Vaccines Aged Out No longer eligi ble based on patient's age to complete this topic Meningococcal ACWY Vaccine Aged Out N o longer eligible based on patient's age to complete this topic Meningococcal B Vacine Aged Out No lo nger eligible based on patient's age to complete this topic RSV Immunization Patients Under 20 months Aged Out No longer eligible based on patient's age to complete this topic Varicella Vaccines Aged Out No longer eligible based on patient's age to complete this topic Procedures Procedure Name Priority Date/Time Associated Diagnosis Comments MG MAMMO DIGITAL SCREENING W JETT BILAT Routine 03/01/2024 10:03 AM EST Encounter for screening mammogram for breast cancer from Last 3 Months or Most Recently Relevant to Health Maintenance Results * MG Mammo Digital Screening w Jett bilat (03/01/2024 10:03 AM EST) Anatomical Region Laterality Modality Breast Bilateral Mammography 03/01/2024 10:0 7 AM EST Impressions 03/01/2024 10:13 AM EST No mammographic evidence of malignancy. A negative mammogram in the presence of a clinically suspicious palpable abnormality does not preclude the possibility of malignancy or alter the indications for biopsy. PQRI CPT II 3342F Code 50803, 00546 PQRI 225 CPT II 7025F TISSUE DENSITY: There are scattered areas of fibroglandular density. (BI-RADS category B) IMPRESSION: Benign. BI-RADS CATEGORY: 2 - BENIGN RECOMMENDATION: Screening bilateral mammogram is recommended in 1 year. Mammo Location: [facility], [address] [place] [address] -------- FINAL REPORT -------- Dictated By: Chriss Lagos Dictated Date: 03/01/2024 10:07 ET Assigned Physician: Chriss Lagos Reviewed and Electronically Signed By: Chriss Lagos Signed Date: 03/01/2024 10:13 ET Workstation ID: [id number] Transcribed By: Self Edit Transcribed Date: 03/01/2024 10:07 ET Narrative 03/01/2024 10:13 AM EST CLINICAL: The patient is a 73 years Female presenting for routine screening mammography. ??The patient has a personal history of right breast cancer treated with lumpectomy and radiation in 2007. ??The patient also has a family history of breast cancer involving her mother at age 80. COMPARISON: Prior studies most recently 02/27/2023 and most remotely 02/02/2017. ?? TECHNIQUE: Full-field digital mammography of the breasts bilaterally consisting of tomosynthesis in MLO and CC projection is performed in the restOpolise 2000-D unit. ??Computer aided detection utilizing the Isoflux system was utilized. FINDINGS: The breasts are again seen to be composed of examination of fatty and fibroglandular elements. ??Architectural distortion posteriorly in the upper inner quadrant of the right breast, representing the lumpectomy scar, is unchanged. ??Surgical clips are again seen in the right axilla. ??Bilateral benign calcifications, including a group of coarse calcifications inferiorly in the right breast likely representing a calcified fibroadenoma, are unchanged in appearance. ??There is no suspicious cluster of microcalcifications, mass, or new area of architectural distortion. There is no skin thickening or nipple retraction. Procedure Note Chriss Lagos MD - 03/01/2024 CLINICAL: The patient is a 73 years Female presenting for routinescreening mammography. The patient has a personal history of right breastcancer treated with lumpectomy and radiation in 2007. The patient alsohas a family history of breast cancer involving her mother at age 80. COMPARISON: Prior studies most recently 02/27/2023 and most slufywfk89/19/2017. TECHNIQUE: Full-field digital mammography of the breasts bilaterallyconsisting of tomosynthesis in MLO and CC projection is performed in theVingleographe 2000-D unit. Computer aided detection utilizing the Tamionystem was utilized. FINDINGS: The breasts are again seen to be composed of examination offatty and fibroglandular elements. Architectural distortion posteriorlyin the upper inner quadrant of the right breast, representing thelumpectomy scar, is unchanged. Surgical clips are again seen in the rightaxilla. Bilateral benign calcifications, including a group of coarsecalcifications inferiorly in the right breast likely representing acalcified fibroadenoma, are unchanged in appearance. There is nosuspicious cluster of microcalcifications, mass, or new area ofarchitectural distortion. There is no skin thickening or nippleretraction. IMPRESSION: No mammographic evidence of malignancy. A negative mammogram in the presence of a clinically suspicious palpableabnormality does not preclude the possibility of malignancy or alter theindications for biopsy. PQRI CPT II 3342F Code 92126, 91040 PQRI 225 CPT II 7025F TISSUE DENSITY: There are scattered areas of fibroglandular density.(BI-RADS category B) IMPRESSION: Benign. BI-RADS CATEGORY: 2 - BENIGN RECOMMENDATION: Screening bilateral mammogram is recommended in 1 year. Mammo Location: [facility], [address] [place] [id number] -------- FINAL REPORT -------- Dictated By: Chriss Lagos Dictated Date: 03/01/2024 10:07 ET Assigned Physician: Chriss Lagos Reviewed and Electronically Signed By: Chriss Lagos Signed Date: 03/01/2024 10:13 ET Workstation ID: [id number] Transcribed By: Self Edit Transcribed Date: 03/01/2024 10:07 ET Dontae Nelson MD IMG BI PROCEDURES Final Result from Last 3 Months or Most Recently Relevant to Health Maintenance Insurance [facility] [place] [id number] Care Teams Fire Prevention Captain Relationship Specialty Start Date End Date Dontae Nelson MD [address] [place] [address] PCP - General Internal Medicine 02/05/24
--- OUTSIDE RECORDS SUMMARY | 2024-07-09 16:10 | XMS_ITS ---
Author Organization [facility] Address [address] [facility] [place] [address] Care Team Providers Care Salon Coordinator Name Role Phone Dontae Nelson MD Primary Care Provider UnavailIva Davila Unavailable [phone] Joni Anderson Unavailable [phone] Allergies Allergen (clinical drug ingredient) Drug/Non Drug Allergy documented on EMR Reaction Allergy Type Onset Date Status ibuprofen Advil upset stomach Drug Allergy Act tomeka Aleve upset stomach Drug Allergy Act tomeka amoxicillin Amoxicillin Unknown Drug Allergy Act tomeka clindamycin Clindamycin HCl Unknown Drug Allergy Active Motrin upset stomach Drug Allergy Act tomeka aspirin Aspirin upset stomach Drug Allergy Act tomeka REASON FOR VISIT Last PCP Visit: 11/18/23 Medications Medication SIG (Take, Route, Frequency, Duration) Notes Start Date End Date Status Levothyroxine Sodium 50 MCG 1 tablet in the morning on an empty stomach Orally Once a day for 30 day(s) Active Meclizine HCl PRN For Vertigo Active Multivitamin Active Voltaren 1 % as directed Externally Active CeleBREX 200 MG 1 capsule with food Orally Once a day for 5 days Not-Taking Fish Oil Active Atorvastatin Calcium 40 MG 1 tablet Orally Once a day for 30 day(s) Active amLODIPine Besylate 5 MG 1 tablet Orally Once a day for 30 day(s) Active Calcium + D 600 mg twice daily Active Flonase PRN Active Lisinopril 5 mg once a day Not -Taking Vitamin D Winter Not-Taking Arimidex 1 mg once a day Not-T aking Lipitor 40 mg once a day Not-T aking Social History Tobacco Use: Social History Observation Description Date Details (start date - stop date) Never Smoker NA - NA Tobacco Use/Smoking Question Answer Notes Are you a: nonsmoker Additional Findings: Tobacco Non-User Current no n-smoker Alcohol Screen Question Answer Notes Did you have a drink contain ing alcohol in the past year? Yes How often did you have a dri nk containing alcohol in the past year? Monthly or less (1 point) Points 1 Interpretation Negative Tobacco use other than smoking: Question Answer Notes Are you an other tobacco user? No Vital Signs Height 5ft 5in in 01/17/2024 Weight 135 lbs 01/17/2024 BMI 22.46 kg/m2 01/17/2024 Encounters Encounter Location Date Provider Diagnosis [facility] [address] [place] [address] 01/17/2024 Joni Anderson Pain in left foot M79.672 ; Pain in right foot M79.671 ; Hallux valgus (acquired), left foot M20.12 ; Hallux valgus (acquired), right foot M20.11 ; Other hammer toe(s) (acquired), left foot M20.42 ; Other hammer toe(s) (acquired), right foot M20.41 ; Primary osteoarthritis, right ankle and foot M19.071 ; Tinea unguium B35.1 ; Pain in right toe(s) M79.674 ; Pain in left toe(s) M79.675 and Peroneal tendonitis of right lower leg M76.71 Assessments Encounter Date Diagnosis (ICD Code) Assessment Notes Treatment Notes Treatment Clinical Notes Section Notes 01/17/2024 Pain in left foot (ICD-10 - M79.672) 01/17/2024 Pain in right foot (ICD-10 - M79.671) 01/17/2024 Hallux valgus (acquired), left foot (ICD-10 - M20.12) 01/17/2024 Hallux valgus (acquired), right foot (ICD-10 - M20.11) 01/17/2024 Other hammer toe(s) (acquired), left foot (ICD-10 - M20.42) 01/17/2024 Other hammer toe(s) (acquired), right foot (ICD-10 - M20.41) 01/17/2024 Primary osteoarthritis, 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) 01/17/2024 Tinea unguium (ICD-10 - B35.1) 01/17/2024 Pain in right toe(s) (ICD-10 - M79.674) 01/17/2024 Pain in left toe(s) (ICD-10 - M79.675) 01/17/2024 Peroneal tendonitis of right lower leg (ICD-10 - M76.71) Plan Of Treatment Medication Medication Name Sig Start Date Stop Date Notes Voltaren 1 % as directed Externally Next Appt Details Follow Up: 4 Months, Reason: Provider Name:Iva mccann, 10/07/2024 09:15:00 AM, [address] [place] [address], [id number], Progress Notes * Melonie LUCAS MDOB: 0 (73 yo F)Acc No.[id number]:01/17/2024 Progress Note Patient:?Melonie Lucas M Provider:?Joni Anderson DPM :1950???Age:73 Y???Sex:Female D ate:01/17/2024 Address:[address] [place], [place] [id number] Pcp:Dontae Nelson MD Subjective: * Chief Complaints: * ???Last PCP Visit: 11/18/23 * HPI: ???Toe pain:?Nature:?aching, tenderness, swelling, numbness, stiffness.?Location:?2nd toe, 3rd toe, B/L feet--right more severe.?Duration:?several years.?Onset/Cause:?shoegear.?Aggravated by:?shoes.?Treatments:?change in shoes, bracing/splinting/padding; p4 helps.?Severity/Quality:?moderate.?Foot Pain:?Nature:?aching , tenderness.?Location:?Outside , Midfoot , RIGHT.?Duration:?several months.?Onset:?overuse , walking.?Course:?worse in past 2 wks.?Aggravated:?standing , walking.?Treatments:?viva inserts.? * ROS:?General/Constitutional:?Nausea?denies.?Vomiting?denies.?Hunger Thirst?denies.?Loss appetite?denies.?Chills?denies.?Fatigue?denies.?Fever?denies.?Night Sweats?denies.?Unexplained weight loss?denies.?Ophthalmologic:?Blurred vision?denies.?Red eye?denies.?HEENTM:?Dentures?denies.?Dizziness?denies.?Glasses/contacts?admits.?Retinopathy?de nies.?Blurred/double vision?denies.?TMJ?denies.?Discharge/drainage?denies.?Implants?denies.?Hard of hearing denies.?Difficulty chewing/swallowing/speaking?denies.?Nose bleeds?denies.?Sore mouth?denies.?Swollen glands?denies.?Respiratory:?On Oxygen?denies.?Pneumonia/pleurisy?denies.?Bronchitis?denies.?Emphysema?denies.?C oughing?denies.?Cough blood?denies.?Shortness of breath?denies.?Wheezing?denies.?Cardiovascular:?Pacemaker?denies.?MVP?denies.?WPW?denies.?CHF?denies.?Heart attack?denies.?Septal defect?denies.?Rapid beat?denies.?Chest pain ?denies.?Atrial Fib.?denies.?Murmur/Palpitations?denies.?Gastrointestinal:?Hemorrhoids?denies.?Stomach/Abdominal pain?denies.?Dark blood stool?denies.?Irritable bowel ?denies.?Constipation?denies.?Diarrhea?denies.?Vomiting?denies.?Hematology:?Swelling?admits.?Bruising?denies.?Bleeding problem?denies.?Genitourinary:?Blood urine?denies.?Frequent/Painfu/urination/bladder control?denies.?Kidney stones?denies.?Infection (UTI)?denies.?Nephropathy?denies.?Musculoskeletal:?Hammertoes?admits.?Bunions?admits.?Scoliosis/kyphosis?denies.?Muscle cramps / walking?denies.?Generalized aches and pains?admits.?Weakness?denies.?Integ.:?Donato?denies.?Scars?denies.?Corns/calluses?admits.?Ingrown nails?denies.?Painful nails?denies.?Rashes?denies.?Neurologic:?Difficulty sleeping?admits.?Bipolar?denies.?Brain disorder?denies.?Balance trouble?denies.?Confusion?denies.?Fainting/blackouts?denies.?Headache?denies.?Tr emors?denies.? * Medical History:? * Surgical History:?lumpectomy 2008hysteroscopy arthroscopic knee surgery oral surgery Infected molar 10/16/18cataract surgery bilateral eyes 12/24/18, 01/07/19Dental surgery 01/23/19 * Hospitalization/Major Diagno stic Procedure:?[facility] 2011Short stay surgery- [facility] 02/06/13Arthroscopic knee surgery 03/13/17[facility]- fractured left wrist 07/23/21 * Family History:?Mother: dece ased, diagnosed with Other malignant neoplasm of unspecified site.?Father: , poor circulation, diagnosed with Diabetic - NIDDM, Unspecified essential hypertension, Unspecified heart disease.?Paternal Grand Mother: foot problems.?Children: none.? no children, single. * Social History:?Tobacco Use:?Tobacco Use/Smoking?Are you a:?nonsmoker ?Additional Findings: Tobacco Non-User?Current non-smoker ?Tobacco use other than smoking?Are you an other tobacco user??No ???Drugs/Alcohol:?Drugs?Have you used drugs other than those for medical reasons in the past 12 months??Yes ?Alcohol Screen?Did you have a drink containing alcohol in the past year??Yes ?How often did you have a drink containing alcohol in the past year??Monthly or less (1 point) ?Points?1 ?Interpretation?Negative ???Miscellaneous:?Caffeine: yes, frequency:decaf, 1-2 cups per day. ?no Children, none. ?Exercise: yes, walking. ?Marital status: single. 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 * Medications:?TakingAtorvasta tin Calcium 40 MG Tablet 1 tablet Orally Once a dayamLODIPine Besylate 5 MG Tablet 1 tablet Orally Once a dayCalcium + D 600 mg twice dailyFlonase , Notes: PRNFish Oil Levothyroxine Sodium 50 MCG Tablet 1 tablet in the morning on an empty stomach Orally Once a dayMeclizine HCl , Notes: PRN For VertigoMultivitamin Voltaren 1 % Gel as directed Externally Taking Atorvastatin Calcium 40 MG Tablet 1 tablet Orally Once a dayTaking amLODIPine Besylate 5 MG Tablet 1 tablet Orally Once a dayTaking Calcium + D 600 mg twice dailyTaking Flonase , Notes: PRNTaking Fish Oil Taking Levothyroxine Sodium 50 MCG Tablet 1 tablet in the morning on an empty stomach Orally Once a dayTaking Meclizine HCl , Notes: PRN For VertigoTaking Multivitamin Taking Voltaren 1 % Gel as directed Externally Not-Taking/PRNCeleBREX 200 MG Capsule 1 capsule with food Orally Once a dayLipitor 40 mg once a dayLisinopril 5 mg once a dayVitamin D , Notes: WinterArimidex 1 mg once a dayMedication List reviewed and reconciled with the patientNot-Taking/PRN CeleBREX 200 MG Capsule 1 capsule with food Orally Once a dayNot-Taking/PRN Lipitor 40 mg once a dayNot-Taking/PRN Lisinopril 5 mg once a dayNot-Taking/PRN Vitamin D , Notes: WinterNot-Taking/PRN Arimidex 1 mg once a dayMedication List reviewed and reconciled with the patient * Allergies:?Advil: upset stom achAleve: upset stomachMotrin: upset stomachAmoxicillinClindamycin HClAspirin: upset stomachyes[Allergies Verified] Objective: * Vitals:?Ht: 5ft 5in, Wt:135, BMI:22.46, Shoe size: 8, Ht-cm: 165.1 cm, Wt-k.23 kg. * Examination: ???Dermatologic: ?SKIN FINDINGS:?Skin exam reveals Keratotic lesion(s) located at, TA, T5, SUB MTH (s), 1, 2, 5, B/L , Skin exam reveals Keratotic lesion(s) located at, T1 .?Orthopedic: ?MUSCLE STRENGTH:?5/5 all groups in a symmetrical fashion , B/L.?GAIT ABNORMALITY:?pronated, abducted, b/l.?BUNION:?Medially prominet 1st MPJ, B/L, Lateral tracking 1st MPJ incompletely reducable.?DIGITAL DEFORMITIES:? Digital contracture, PIPJ, 2-5 B/L, incompl- reducable to push-up test and T7 underlapping T6.?General Examination: ?GENERAL APPEARANCE:?alert, well hydrated, in no distress , good attention to hygiene.?ORIENTED:?person,place, and time.?Vascular: ?DP PULSES(B):?2/4, B/L.?PT PULSES(B):?2/4, B/L.?CAPILLARY FILL TIME:?3 secs. per digit, b/l.?TROPHIC CONDITION-TEXTURE/ELASTICITY/TURGOR/HAIR GROWTH(B):?absent.?TEMPERTURE GRADIENT(C):?warm to cool, proximal to distal.?PIGMENTATION:?normal, B/L.?EDEMA(C):?no edema.?TELANGECTASIA:?absent.?VARICOSITIES:?absent.?Neurological: ?SENSORY:?Neurological exam demonstrates pop right 3rd mt-cun and 4th mt- cuboid; pop right 5th mt base at peroneal insertion.?BABINSKI REFLEX:?absent.?Nails: ?NAILS are:? Elongated, overgrown, dystrophic, lytic, greater than 3mm thick, discolored and friable with crumbly malodorous subungual debris, with pain on palpation, TA, T5, proximal clearing of nail __50__ percent.? Assessment: * Assessment: 1.?Pain in left foot - M79.6 72 (Primary)?2.?Pain in right foot - M79.671?3.?Hallux valgus (acquired), left foot - M20.12?4.?Hallux valgus (acquired), right foot - M20.11?5.?Other hammer toe(s) (acquired), left foot - M20.42?6.?Other hammer toe(s) (acquired), right foot - M20.41?7.?Primary osteoarthritis, right ankle and foot - M19.071?8.?Tinea unguium - B35.1?9.?Pain in right toe(s) - M79.674?10.?Pain in left toe(s) - M79.675?11.?Peroneal tendonitis of right lower leg - M76.71? Plan: * Treatment: * Procedure Codes:? * Preventive Medicine:? ??Counseling:?Discussion:?-14: Office or other outpatient visit for the evaluation and management of an established patient, which required a medically appropriate history and/or examination and moderate level of decision making. When using time for code selection, 30-39 min of total time was spent on the day of the encounter interpreting the data and educating the patient as to the nature of their condition, treatment options available according to their individual PMH, meds, allergies, and overall health/living conditions, as well as any potential risks or complications that may occur from a failure to adhere to, and participate in, the recommended course of therapy. The discussion included a complete verbal, and/or written explanation of the examination results, any x-rays taken, the proposed diagnosis, and outline of the treatment plan. A schedule for future care needs was also explained. The patient verbalized an understanding of the instructions at this time and agreed to be an active participant in their treatment. If the patient should think of any questions or concerns after the visit, I have encouraged the patient to call the office--continue with p4 cream prn pain and pt to still contemplate foot sx.?Fungal Nail Counseling:?The patient was counseled on the diagnosis, potential etiologies (including, but not limited to, environmental factors, genetic, immune deficiency), and the multiple treatment options for Onychomycosis. We discussed the risks and benefits of each option from performing no treatment, to ultraviolet light shoe treatment, to laser nail treatment, to applying topical antifungals, to taking oral antifungal medication, to surgical removal of the involved nail(s) with or without performing a matricectomy, or any combination thereof. We discussed the advantages and disadvantages of each of possible treatment and importance for adherence to all the recommended therapies for optimum success. This includes the necessity for weekly emery board self nail home debridements, and control the nail and skin environment as much as possible by only using a fresh, dry pair of shoes/socks each day, as well as keeping the skin as dry as possible through the use of sprays/powders if necessary. The patient was instructed to discard the emery board after use to prevent reinfection of the involved nail(s). We discussed the mycological and visual clinical effectiveness of topical vs oral antifungal treatments as well as each ones potential side effects and/or any patient- specific medication interactions. We discussed the reasons behind the important requirement of regular liver function testing with oral antifungal therapy for safety. Patient questions regarding use, dosage, successful outcomes, blood tests, and possible pharmaceutical interactions were reviewed and the patient verbalized that all answers were clearly understood, The Pt prefers topical treatment--vicks.? * Follow Up:?4 Months * Images: * Sign off status: Completed true * Provider:?Joni Anderson DPM Date:? 024 Generated for Anupama amaral/Robert/Markell on:?07/09/2024 04:10 PM EDT History and Physical Notes * HPI (History of Present Illness) Category Sub-Category Detail Notes Category Not es Toe pain Nature: aching, tenderne ss, swelling, numbness, stiffness Location: 2nd toe, 3rd toe, B/ L feet--right more severe Duration: several years Onset/Cause: shoegear Aggravated by: shoes Treatments: change in shoes, bracing/splinting/padding ; p4 helps Severity/Quality: moderate Foot Pain Nature: aching , tenderness Location: Outside , Midfoot , RIGHT Duration: several months Onset: overuse , walking Course: worse in past 2 wks Aggravated: standing , walking Treatments: viva inserts Examination Category Sub-Category Detail Notes Category Not es Neurological SENSORY: Neurological exa m demonstrates pop right 3rd mt-cun and 4th mt-cuboid; pop right 5th mt base at peroneal insertion BABINSKI REFLEX: absent Dermatologic SKIN FINDINGS: Skin exam reveal s Keratotic lesion(s) located at, TA, T5, SUB MTH (s), 1, 2, 5, B/L , Skin exam reveals Keratotic lesion(s) located at, T1 Orthopedic GAIT ABNORMALITY: pronated, abducted, b/l BUNION: Medially prominet 1s t MPJ, B/L, Lateral tracking 1st MPJ incompletely reducable DIGITAL DEFORMITIES: Digital contracture , PIPJ, 2-5 B/L, incompl-reducable to push-up test and T7 underlapping T6 MUSCLE STRENGTH: 5/5 all groups in a symmetrical fashion , B/L General Examination GENERAL APPEARANCE: alert, w ell hydrated, in no distress , good attention to hygiene ORIENTED: person,place, and ti me Vascular DP PULSES (B): 2/4, B/L PT PULSES (B): 2/4, B/L CAPILLARY FILL TIME: 3 secs. per digit, b/l TEMPERTURE GRADIENT (C): warm to cool, p roximal to distal TROPHIC CONDITION-TEXTURE/EL ASTICITY/TURGOR/HAIR GROWTH (B): absent EDEMA (C): no edema TELANGECTASIA: absent VARICOSITIES: absent PIGMENTATION: normal, B/L Nails NAILS are: Elongated, overg rown, dystrophic, lytic, greater than 3mm thick, discolored and friable with crumbly malodorous subungual debris, with pain on palpation, TA, T5, proximal clearing of nail __50__ percent
--- OUTSIDE RECORDS SUMMARY | 2024-07-09 16:10 | XMS_ITS ---
Author Organization Maxim Loomis III, MD Address [address] [place] [address] Care Team Providers Care Tear Down Man Name Role Phone Dontae Nelson MD Primary Care Provider Maxim Paul [phone] Allergies Allergen (clinical drug ingredient) Drug/Non Drug Allergy documented on EMR Reaction Allergy Type Onset Date Status azithromycin Zithromax diarrhea Drug Allergy Acti ve clindamycin Clindamycin HCl anaphylaxis Drug Allergy Active aspirin Aspirin stomach upset Drug Allergy Act tomeka amoxicillin Amoxicillin diarrhea Drug Allergy Act tomeka ibuprofen Ibuprofen stomach upset Drug Allergy Act tomeka REASON FOR VISIT [...] Date Provider Diagnosis Maxim Loomis III, MD [address] [place] [address] [place] [address] 05/09/2023 Maxim Loomis Encounter for screen ing [...] n: OV no tests Provider Name:Maxim Loomis, 05/13/2025 10:00:00 AM, [address] [place] [address] [address], [place], [phone], Progress Notes * Melonie LUCASDOB:1950 (72 yo F)Acc No.[id number]:05/09/2023 Progress Notes Patient:Melonie Klein Provider:?Maxim Loomis MD :1950???Age:72 Y???Sex:Female D ate:05/09/2023 Address:[address] [place] [address], [address], [id number] Pcp:Dontae Nelson MD Subjective: * Chief Complaints: [...] Tobacco Non-User?Aggressive non-smoker ???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 She was born in [place], [place]. * Medications:?TakingTolnaftat e , Notes: As [...] Provider:?Maxim Loomis MD Date:?04/18 Generated for Anupama amaral/Faxing/eTransmitting on:?07/09/2024 04:10 PM EDT History and Physical [...]
--- OUTSIDE RECORDS SUMMARY | 2024-07-09 16:10 | XMS_ITS ---
Author Organization [facility] Address [address] [place] [address] Care Team Providers Care Staple Laster Name Role Phone Dontae Nelson MD Primary Care Provider Iva Munson Unavailable [phone] Joni Anderson [phone] REASON FOR VISIT BUY Pedag Viva Sport #39 / L 9 Encounters Encounter Location Date Provider Diagnosis [facility] [address] [place] [address] 09/18/2023 Joni Anderson Plan Of Treatment Next Appt Details Provider Name:Iva mccann, 10/07/2024 09:15:00 AM, [address] [place], [address], Progress Notes * Melonie LUCAS MDOB: 0 (72 yo F)Acc No.[id number]:09/18/2023 Patient:?Melonie Lucas :1950???Age:72 Y???Sex:Female Address:[address] [place] [address] [address], [place], [address] * true * Date:? Generated for Printi cristin/Олегg/eTransmitting on:?07/09/2024 04:09 PM EDT
--- OUTSIDE RECORDS SUMMARY | 2024-07-09 16:10 | XMS_ITS ---
Author Organization [facility] Address [address] [place] [address] Care Team Providers Care Lye Treater Name Role Phone Dontae Nelson MD Primary Care Provider Iva Munson Unavailable [phone] Allergies Allergen (clinical drug ingredient) Drug/Non Drug [...] Drug Allergy Act tomeka REASON FOR VISIT Painful nail(s) aggravated by shoes causing difficulty standing/walking Medications Medication SIG (Take, Route, Frequency, Duration) Notes Start Date End Date Status Arimidex 1 mg once a day Not-T aking CeleBREX 200 MG 1 capsule with food Orally Once a day for 5 days Not-Taking Lipitor 40 mg once a day Not-T aking Lisinopril 5 mg once a day Not -Taking Vitamin D Winter Not-Taking Flonase PRN Active Fish Oil Active Levothyroxine Sodium 50 MCG 1 tablet in the morning on an empty stomach Orally Once a day for 30 day(s) Active Meclizine HCl PRN For Vertigo Active Multivitamin Active amLODIPine Besylate 5 MG 1 tablet Orally Once a day for 30 day(s) Active Calcium + D 600 mg twice daily Active Voltaren 1 % as directed Externally Active Atorvastatin Calcium 40 MG 1 tablet Orally Once a day for 30 day(s) Active Social History Tobacco Use: Social History Observation Description Date Details (start date - stop date) Never Smoker NA - NA Tobacco use other than smoking: Question Answer Notes Are you an other tobacco user? No Tobacco Control (Standard) Question Answer Notes Tobacco use: Nonsmoker Additional Findings: Tobacco non-user Current no nsmoker AUDIT-C (Standard) Question Answer Notes Did you have a drink containing alcohol in the p ast year? No Points 0 Interpretation Negative Vital Signs Height 5ft 5in in 05/20/2024 Weight 135 lbs 05/20/2024 BMI 22.46 kg/m2 05/20/2024 Blood pressure systolic 120 mm Hg 05/20/19 25 Blood pressure diastolic 80 mm Hg 025 Procedures Procedure Date Ordered Date Performed Result Body Sit e 92830-BZJGMPJ NAIL, 6 OR MORE 05/20/2024 N/A Encounters Encounter Location Date Provider Diagnosis [facility] [address] [address] 05/20/2024 Iva Millan Pain in right toe(s) M79.674 ; Onychomycosis B35.1 and Pain in left toe(s) M79.675 Assessments Encounter Date Diagnosis (ICD Code) Assessment Notes Treatment Notes Treatment Clinical Notes Section Notes 05/20/2024 Pain in right toe(s) (ICD-10 - M79.674) 05/20/2024 Onychomycosis (ICD-10 - B35.1) 05/20/2024 Pain in left toe(s) (ICD-10 - M79.675) Plan Of Treatment Pending Test Test Name Order Date 06121-CSYCLXK NAIL, 6 OR MORE 05/20/2024 Next Appt Details Follow Up: 3 Months, Reason: Provider Name:Iva Jacksonsharri siobhan, 10/07/2024 09:15:00 AM, [address] [place] [address], [id number], Procedure Notes * Category Sub-Category Detail Notes Debride Nail 6-10 Nail debridement Due to the cl inical pathology outlined in the exam findings, performance of this nail treatment is medically necessary as its management by an unskilled/untrained nonprofessional would put this patients foot and overall health at risk. Therefore, debridement to affected nail(s), as described in exam ( TA, T1, T2, T3, T4, T5, T6, T7, T8, T9, ), was performed exclusively by the physician of record to reduce/remove overall nail length, girth, thickness, subungual debris, and necrotic tissue, by manual and/or electrical means through the use of a nail nipper and/or dremel-type grinder mill operator, to a more viable healthy nail plate or bed tissue 6-10 nails in total. Silver nitrate was used for any petechial bleeding as necessary. Definitive antifungal treatment options, both pharmaceutical and surgical, have been reviewed and discussed with the patient. The patient solely prefers the use of intermittent/as needed professional debridement services for their nail condition and understands the need for additional periodic treatments to maintain effectiveness in symptomatic relief - 75231, Pt wishes to continue with the present treatment plan Progress Notes * Melonie LUCAS MDOB: 0 (73 yo F)Acc No.[id number]:05/20/2024 Progress Note Patient:?Melonie LUCAS M Provider:?Iva Millan DPM :1950???Age:73 Y???Sex:Female D ate:05/20/2024 Address:[address] [place], [place] [id number] Pcp:Dontae Nelson MD Subjective: * Chief Complaints: * ???Painful nail(s) aggravate d by shoes causing difficulty standing/walking * HPI: ???Painful Nails:?Pt States Last PCP Visit:?Date:?04/30/2024 * ROS:?General/Constitutional:?Nausea?denies.?Vomiting?denies.?Hunger Thirst?denies.?Loss appetite?denies.?Chills?denies.?Fatigue?denies.?Fever?denies.?Night Sweats?denies.?Unexplained weight loss?denies.?Ophthalmologic:?Blurred vision?denies.?Red eye?denies.?HEENTM:?Dentures?denies.?Dizziness?denies.?Glasses/contacts?admits.?Retinopathy?de nies.?Blurred/double vision?denies.?TMJ?denies.?Discharge/drainage?denies.?Implants?denies.?Hard of hearing denies.?Difficulty chewing/swallowing/speaking?denies.?Nose bleeds?denies.?Sore mouth?denies.?Swollen glands?denies.?Respiratory:?On Oxygen?denies.?Pneumonia/pleurisy?denies.?Bronchitis?denies.?Emphysema?denies.?C oughing?denies.?Cough blood?denies.?Shortness of breath?denies.?Wheezing?denies.?Cardiovascular:?Pacemaker?denies.?MVP?denies.?WPW?denies.?CHF?denies.?Heart attack?denies.?Septal defect?denies.?Rapid beat?denies.?Chest pain ?denies.?Atrial Fib.?denies.?Murmur/Palpitations?denies.?Gastrointestinal:?Hemorrhoids?denies.?Stomach/Abdominal pain?denies.?Dark blood stool?denies.?Irritable bowel ?denies.?Constipation?denies.?Diarrhea?denies.?Vomiting?denies.?Hematology:?Swelling?admits.?Bruising?denies.?Bleeding problem?denies.?Genitourinary:?Blood urine?denies.?Frequent/Painfu/urination/bladder control?denies.?Kidney stones?denies.?Infection (UTI)?denies.?Nephropathy?denies.?Musculoskeletal:?Hammertoes?admits.?Bunions?admits.?Scoliosis/kyphosis?denies.?Muscle cramps / walking?denies.?Generalized aches and pains?admits.?Weakness?denies.?Integ.:?Donato?denies.?Scars?denies.?Corns/calluses?admits.?Ingrown nails?denies.?Painful nails?admits.?Rashes?denies.?Neurologic:?Difficulty sleeping?admits.?Bipolar?denies.?Brain disorder?denies.?Balance trouble?denies.?Confusion?denies.?Fainting/blackouts?denies.?Headache?denies.?Tr emors?denies.? * Medical History:? * Surgical History:?lumpectomy 2008hysteroscopy arthroscopic knee surgery oral surgery Infected molar 10/16/18cataract surgery bilateral eyes 12/24/18, 01/07/19Dental surgery 01/23/19 * Hospitalization/Major Diagno stic Procedure:?[facility] 2011Short stay surgery- [facility] 02/06/13Arthroscopic knee surgery 03/13/17[facility]- fractured left wrist 07/23/21 * Family History:?Mother: dece ased, diagnosed with Other malignant neoplasm of unspecified site.?Father: , poor circulation, diagnosed with Diabetic - NIDDM, Unspecified essential hypertension, Unspecified heart disease.?Paternal Grand Mother: foot problems.?Children: none.? no children, single. * Social History:?Tobacco Use:?Tobacco use other than smoking?Are you an other tobacco user??No ?Tobacco Control (Standard)?Tobacco use:?Nonsmoker ?Additional Findings: Tobacco non-user?Current nonsmoker ???Drugs/Alcohol:?Drugs?Have you used drugs other than those for medical reasons in the past 12 months??Yes ???Miscellaneous:?Caffeine: yes, frequency:decaf, 1-2 cups per day. ?Children: no, none. ?Exercise: yes, walking. ?Marital status: single. 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 ???Drug/Alcohol:?AUDIT-C (Standard)?Did you have a drink containing alcohol in the past year??No ?Points?0 ?Interpretation?Negative * Medications:?TakingVoltaren 1 % Gel as directed Externally Atorvastatin Calcium 40 MG Tablet 1 tablet Orally Once a day amLODIPine Besylate 5 MG Tablet 1 tablet Orally Once a day Calcium + D 600 mg twice daily Flonase , Notes to Pharmacist: PRNFish Oil Levothyroxine Sodium 50 MCG Tablet 1 tablet in the morning on an empty stomach Orally Once a day Meclizine HCl , Notes to Pharmacist: PRN For VertigoMultivitamin Taking Voltaren 1 % Gel as directed Externally Taking Atorvastatin Calcium 40 MG Tablet 1 tablet Orally Once a day Taking amLODIPine Besylate 5 MG Tablet 1 tablet Orally Once a day Taking Calcium + D 600 mg twice daily Taking Flonase , Notes to Pharmacist: PRNTaking Fish Oil Taking Levothyroxine Sodium 50 MCG Tablet 1 tablet in the morning on an empty stomach Orally Once a day Taking Meclizine HCl , Notes to Pharmacist: PRN For VertigoTaking Multivitamin Not-Taking/PRNCeleBREX 200 MG Capsule 1 capsule with food Orally Once a day Lipitor 40 mg once a day Lisinopril 5 mg once a day Vitamin D , Notes to Pharmacist: WinterArimidex 1 mg once a day Medication List reviewed and reconciled with the patientNot-Taking/PRN CeleBREX 200 MG Capsule 1 capsule with food Orally Once a day Not-Taking/PRN Lipitor 40 mg once a day Not-Taking/PRN Lisinopril 5 mg once a day Not-Taking/PRN Vitamin D , Notes to Pharmacist: WinterNot- Taking/PRN Arimidex 1 mg once a day Medication List reviewed and reconciled with the patient * Allergies:?Advil: upset stom achAleve: upset stomachMotrin: upset stomachAmoxicillinClindamycin HClAspirin: upset stomachyes[Allergies Verified] Objective: * Vitals:?Ht:5ft 5in, Wt:135, BMI:22.46, Shoe size:8, BP:120/80mm Hg, Ht-cm: 165.1 cm, Wt-k.24 kg. * Examination: ???Nails: ?NAILS are:?Elongated, overgrown, dystrophic, lytic, greater than 3mm thick, discolored and friable with crumbly malodorous subungual debris, with pain on palpation, TA, T1, T2, T3, T4, T5, T6, T7, T8, T9.? Assessment: * Assessment: 1.?Pain in right toe(s) - M7 9.674???2.?Onychomycosis - B35.1 (Primary)???3.?Pain in left toe(s) - M79.675??? Plan: * Treatment: * Procedures:?Debride Nail 6-10:?Nail debridement?Due to the clinical pathology outlined in the exam findings, performance of this nail treatment is medically necessary as its management by an unskilled/untrained nonprofessional would put this patients foot and overall health at risk. Therefore, debridement to affected nail(s), as described in exam ( TA, T1, T2, T3, T4, T5, T6, T7, T8, T9, ), was performed exclusively by the physician of record to reduce/remove overall nail length, girth, thickness, subungual debris, and necrotic tissue, by manual and/or electrical means through the use of a nail nipper and/or dremel-type grinder mill operator, to a more viable healthy nail plate or bed tissue 6- 10 nails in total. Silver nitrate was used for any petechial bleeding as necessary. Definitive antifungal treatment options, both pharmaceutical and surgical, have been reviewed and discussed with the patient. The patient solely prefers the use of intermittent/as needed professional debridement services for their nail condition and understands the need for additional periodic treatments to maintain effectiveness in symptomatic relief - 76143, Pt wishes to continue with the present treatment plan.? * Procedure Codes:?01168 KARUNA WHITE, 6 OR MORE * Follow Up:?3 Months * Images: * Sign off status: Completed true * Provider:?Iva Millan DPM Date:?0 05/20/2024 Generated for Anupama amaral/Robert/Markell on:?07/09/2024 04:10 PM EDT History and Physical Notes * HPI (History of Present Illness) Category Sub-Category Detail Notes Category Not es Painful Nails Pt States Last PCP Visit: Date:: 04/30/2024 Examination Category Sub-Category Detail Notes Category Not es Nails NAILS are: Elongated, overg rown, dystrophic, lytic, greater than 3mm thick, discolored and friable with crumbly malodorous subungual debris, with pain on palpation, TA, T1, T2, T3, T4, T5, T6, T7, T8, T9
--- OUTSIDE RECORDS SUMMARY | 2024-07-09 16:10 | XMS_ITS ---
Author Organization Maxim Loomis III, MD Address [address] [place] [address] Care Team Providers Care Accounts Administrator Name Role Phone Dontae Nelson MD Primary Care Provider Maxim Paul [phone] Allergies Allergen (clinical drug ingredient) Drug/Non Drug [...] Date Provider Diagnosis Maxim Loomis III, MD [address] [place] [address] [address] [place], [place] [address] 08/25/2023 Maxim Loomis Encounter for screen ing [...] Scheduled, Bhavani son: OV Provider Name:Maxim Hoganrne, 05/13/2025 10:00:00 AM, [address] [place] [address] [address], [address], [place], [address], Progress Notes * Melonie LUCASDOB:1950 (72 yo F)Acc No.[id number]:08/25/2023 Progress Notes Patient:?Melonie Lucas Provider:?Maxim Loomis MD :1950???Age:72 Y???Sex:Female D ate:08/25/2023 Address:[address] [place] [address], [address], [place] [address]-[id number] Pcp:Dontae Nelson MD Subjective: * Chief Complaints: [...] lesions. 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 She was born in [place], [place]. * Medications:?TakingMeclizine HCl 50 MG Tablet [...] Loomis MD Date:?08/15 Generated for Anupama amaral/Robert/Markell on:?07/09/2024 04:10 PM [...]
--- OUTSIDE RECORDS SUMMARY | 2024-07-09 16:11 | XMS_ITS | Patient Health Record ---
Author Organization [facility] Address [address] [facility] [place] [address] Care Team Providers Care Bone Char Kiln Tender Name Role Phone Leslie CRAFT, Dontae Primary Care Provider Iva Munson Unavailable [phone] Joni Anderson Unavailable [phone] Allergies Allergen (clinical drug ingredient) Drug/Non Drug Allergy documented on EMR Reaction Allergy Type Onset Date Status ibuprofen Advil upset stomach Drug Allergy Act tomeka Aleve upset stomach Drug Allergy Act tomeka amoxicillin Amoxicillin Unknown Drug Allergy Act tomeka clindamycin Clindamycin HCl Unknown Drug Allergy Active Motrin upset stomach Drug Allergy Act tomeka aspirin Aspirin upset stomach Drug Allergy Act tomeka Reason For Referral No Information Medications Medication SIG (Take, Route, Frequency, Duration) Notes Start Date End Date Status amLODIPine Besylate 5 MG 1 tablet Orally Once a day for 30 day(s) Active Arimidex 1 mg once a day Not-T aking Calcium + D 600 mg twice daily Active Flonase PRN Active Fish Oil Active Levothyroxine Sodium 50 MCG 1 tablet in the morning on an empty stomach Orally Once a day for 30 day(s) Active Meclizine HCl PRN For Vertigo Active Multivitamin Active CeleBREX 200 MG 1 capsule with food Orally Once a day for 5 days Not-Taking Lipitor 40 mg once a day Not-T aking Voltaren 1 % as directed Externally Active Lisinopril 5 mg once a day Not -Taking Atorvastatin Calcium 40 MG 1 tablet Orally Once a day for 30 day(s) Active Vitamin D Winter Not-Taking Immunizations Vaccine Route Administration Date Status Comme nts COVID-19 Moderna Vaccine Unknown 02/08/2021 Administere d 06/17/20, 07/15/20 Social History Tobacco Use: Social History Observation [...] No Points 0 Interpretation Negative Vital Signs Blood pressure diastolic 80 mm Hg 05/20/2024 Height 5ft 5in in 05/20/2024 Blood pressure systolic 120 mm Hg 05/20/2024 Weight 135 lbs 05/20/2024 BMI 22.46 kg/m2 05/20/2024 Procedures Procedure Date Ordered Date Performed Result Body Sit e 37829-FRQPQOX NAIL, 6 OR MORE 05/20/2024 N/A Encounters Encounter Location Date Provider Diagnosis [facility] [address] 09/18/2023 Joni Anderson Pain in left foot M79.672 [...] Peroneal tendonitis of right lower leg M76.71 [facility] [address] [address] 01/17/2024 Joni Anderson Pain in left foot [...] Peroneal tendonitis of right lower leg M76.[address] [address] 05/20/2024 Iva Millan Pain in right toe(s) M79.674 ; Onychomycosis B35.1 and Pain in left toe(s) M79.[address] [address] 09/18/2023 Joni Anderson Assessments Encounter Date Diagnosis (ICD Code) Assessment Notes Treatment Notes Treatment Clinical Notes Section Notes 09/18/2023 Pain in left foot (ICD-10 - M79.672) 05/20/2024 Pain in right toe(s) (ICD-10 - M79.674) 01/17/2024 Pain in left foot (ICD-10 - M79.672) 01/17/2024 Pain in right foot (ICD-10 - M79.671) 05/20/2024 Onychomycosis (ICD-10 - B35.1) 09/18/2023 Pain in right foot (ICD-10 - M79.671) 05/20/2024 Pain in left toe(s) (ICD-10 - M79.675) 09/18/2023 Hallux valgus (acquired), left foot (ICD-10 - M20.12) 01/17/2024 Hallux valgus (acquired), left foot (ICD-10 - M20.12) 01/17/2024 Hallux valgus (acquired), right foot (ICD-10 - M20.11) 09/18/2023 Hallux valgus (acquired), right foot (ICD-10 - M20.11) 09/18/2023 Other hammer toe(s) (acquired), left foot (ICD-10 - M20.42) 01/17/2024 Other hammer toe(s) (acquired), left foot (ICD-10 - M20.42) 01/17/2024 Other hammer toe(s) (acquired), right foot (ICD-10 - M20.41) 09/18/2023 Other hammer toe(s) (acquired), right foot (ICD-10 - M20.41) 09/18/2023 Primary osteoarthritis, 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) 01/17/2024 Primary osteoarthritis, 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) 01/17/2024 Tinea unguium (ICD-10 - B35.1) 09/18/2023 Tinea unguium (ICD-10 - B35.1) 09/18/2023 Pain in right toe(s) (ICD-10 - M79.674) 01/17/2024 Pain in right toe(s) (ICD-10 - M79.674) 01/17/2024 Pain in left toe(s) (ICD-10 - M79.675) 09/18/2023 Pain in left toe(s) (ICD-10 - M79.675) 09/18/2023 Peroneal tendonitis of right lower leg (ICD-10 - M76.71) 01/17/2024 Peroneal tendonitis of right lower leg (ICD-10 - M76.71) Plan Of Treatment Pending Test Test Name Order Date X ray : Foot, right 3V 05/04/2021 X ray : Foot, right 3V 04/19/2019 48570-DWOPQIB NAIL, 6 OR MORE 05/20/2024 16840-Yark Destruction, -09/04/2012 51336-Jkcf Destruction, -08/28/2015 51547-Gkmk Destruction, -14 10/09/2015 59236-Zunh Destruction, -14 03/18/2016 12912-Tylr Destruction, -12/18/2015 97334-Hoae Destruction, -14 03/15/2011 21779-Dxot Destruction, -14 10/25/2011 79620-Bret Destruction, -14 03/06/2012 36421-Algm Destruction, -14 03/08/2013 97551-Ixie Destruction, -14 07/12/2013 31383-Qmuy Destruction, -14 10/29/2013 24931-Zfjy Destruction, 1-14 07/12/2011 70554-Kpwhwasi Plate 02/20/2015 45313- Debride <25 sq cm 05/29/2015 31654- Debride <25 sq cm 08/28/2015 36999- Debride <25 sq cm 12/09/2014 Next Appt Details Provider Name:Iva mccann, 10/07/2024 09:15:00 AM, [address] [place], [address], Insurance Providers Payer Name Payer Address Payer Phone Subscriber Number Group Number Insured Name Patient Relationship to Insured Coverage Start Date Coverage End Date [facility] [address] [place] [address] [phone] [id number] Melonie Conde Self - patient is the insured 5 Medical (General) History Medical History History ICD Code measles hypertension chicken pox Pneumonia Ingrowing nail Ingrowing nail Vertigo Surgical History Surgery Date(Month/Year) lumpectomy 2007 hysteroscopy arthroscopic knee surgery oral surgery Infected molar 10/16/18 cataract surgery bilateral eyes 12/24/18, 01/07/19 Dental surgery 01/23/19 Hospitalization History Reason Date(Month/Year) [facility]- fractured left wrist Arthroscopic knee surgery 03/13/17 Short stay surgery- [facility] 02/06/13 [facility]-D[facility]C 2010
--- OUTSIDE RECORDS SUMMARY | 2024-07-09 16:11 | XMS_ITS ---
Author Organization Maxim Loomis III, MD Address [address] [place] [address] Care Team Providers Care Options Advisor Name Role Phone Dontae Nelson MD Primary Care Provider Maxim Paul [phone] Allergies Allergen (clinical drug ingredient) Drug/Non Drug [...] Problem Status W/U Status Risk Notes Problem [id number] Encounter for screening mammogram for malignant neoplasm [...] Provider Diagnosis Maxim Loomis III, MD [address] [place] [address] [place] [address] 05/13/2024 Maxim Loomis Encounter for screen ing [...] 1 Year, Reason: O V Provider Name:Maxim Lomois, 05/13/2025 10:00:00 AM, [address] [place] [address] [address], [place], [address], Progress Notes * Melonie LUCASDOB:1950 (73 yo F)Acc No.[id number]:05/13/2024 Progress Notes Patient:?Melonie LUCAS Provider:?Maxim Loomis MD :1950???Age:73 Y???Sex:Female D ate:05/13/2024 Address:[address] [place] [address], [id number] Pcp:Dontae Nelson MD Subjective: * Chief Complaints: * ???Breast cancerHypertension * HPI: ???COVID-19 Screening:? She returns for a periodic scheduled visit follow a history of breast cancer.? She has had no findings on breast self-examination.? She is up-to-date with mammography.? There have been no new cases of breast cancer or ovarian cancer in her family.? Her examination today was unremarkable.? Annual followup was scheduled. 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 She was born in [place], [place]. * Medications:?TakingClaritin 10 MG Tablet 1 tablet Orally Once [...] HCl: anaphylaxisIbuprofen: stomach upsetno[Allergies Verified] Objective: * Vitals:?Wt:140, BMI:22.59, B P:133/77, HR:80, Temp:97.9, Ht-cm: 167.64, Wt-k.5. * Examination: ???General Examination: ?GENERAL APPEARANCE:?pleasant, well nourished, well developed, in no acute distress, calm and relaxed, woman.?HEAD:?atraumatic, normocephalic.?EYES:?eomi, perrla, anicteric, conjugate.?EARS:?normal.?NOSE:?septum intact.?ORAL CAVITY:?normal, unremarkable.?NECK/THYROID:?no jugular venous distention, no carotid bruit, thyroid normal.?LYMPH NODES:?no enlarged lymph nodes,spleen normal.?SKIN:?no suspicious lesions, anicteric.?HEART:?no clicks, gallops, murmurs, or rubs, regular rhythm, S1, S2 normal, no s3, or vascular bruits.?LUNGS:?clear to auscultation .?BREASTS:?no masses palpable bilaterally, symmetrical, nontender, no drainage, no dimpling.?ABDOMEN:?bowel sounds normal, no ascites, no organomegaly, no mass.?RECTAL EXAM:?not examined.?MUSCULOSKELETAL:?extremities unremarkable, no clubbing, cyanosis or edema.?PERIPHERAL PULSES:?normal.?NEUROLOGIC:?alert and oriented, cranial nerves 2-12 grossly intact, deep tendon reflexes 2+ symmetrical, motor strength normal upper and lower extremities, sensory exam intact.?PSYCH:?alert, oriented.? Assessment: * Assessment: 1.?Breast cancer - C50.919 ( Primary)???Notes :There is no sign of a new primary or recurrence. Is no sign of any other malignancy. There have been no cases of cancer in her family. Since her last visit. Surveillance was continued.???2.?Encounter for screening mammogram for malignant neoplasm of breast - Z12.31???Notes :Her annual mammogram has been ordered.???3.?HTN (hypertension) - I10???Notes :Her blood pressure today is unremarkable. No change in her therapy is needed.???4.?Other and unspecified hyperlipidemia - E78.5???Notes :I recommended that she have periodic determination of her lipid values and maintain a normal weight and consume a diet low in animal fat. I recommended that she have her primary care physician obtain her lipids periodically.??? Plan: * Treatment: * Procedure Codes:? * Follow Up:?1 Year (Reason: O V) * Images: * Sign off status: Completed true * Provider:?Maxim Loomis MD Date:?04/18 Generated for Anupama amaral/Robert/Autumnsmitting on:?07/09/2024 04:10 PM EDT History and Physical [...]
== END 2024-07-09 14:19 | disposition home or self-care (01) ==
LOC: HO.HWS 13:19
PROVIDERS: PCP Internal Medicine; Visit Provider Advanced Practice Midwife
DX: Z01.419 Encounter for gynecological examination (general) (routine) without abnormal findings (principal); D21.9 Benign neoplasm of connective and other soft tissue, unspecified
CPT/HCPCS: 99397; 99459

== ENCOUNTER → 2024-07-09 13:19 | Outpatient (BNVA) | payer OTHER, SELFPAY | PROVIDERS: PCP Internal Medicine; Visit Provider Advanced Practice Midwife ==

== ENCOUNTER 2024-08-08 07:41 | Outpatient (REF) | payer OTHER, SELFPAY ==
--- OUTSIDE RECORDS SUMMARY | 2024-08-08 07:44 | XMS_ITS | Patient Health Record ---
Author Organization Maxim Loomis III, MD Address [address] [place] [address] Care Team Providers Care Checker Product Design Name Role Phone Dontae Nelson MD Primary Care Provider Maxim Paul [facility] [phone] Allergies Allergen (clinical drug ingredient) Drug/Non Drug [...] Problem Status W/U Status Risk Notes Problem 338302495 Breast cancer (C50.919) Active confirmed There is no sign of a new primary or recurrence. Is no sign of any other malignancy. There have been no cases of cancer in her family. Since her last visit. Surveillance was continued. Problem 744667392 Encounter for screening mammogram for malignant neoplasm of breast (Z12.31) Active confirmed Her annual mammogram has been ordered. Problem 13787360 HTN (hypertension) (I10) Active confirmed Her blood pressure today is unremarkable. No change in her therapy is needed. Problem 39121676 Other and unspecified hyperlipidemia (E78.5) Active confirmed [...] Date Provider Diagnosis Maxim Loomis III, MD [address] [place] [address] [place] [address] 08/25/2023 Maxim Loomis Encounter for screen ing mammogram for malignant neoplasm of breast Z12.31 ; Dermatitis, unspecified L30.9 ; HTN (hypertension) I10 ; Breast cancer C50.919 and Other and unspecified hyperlipidemia E78.5 Maxim Loomis III, MD [address] [place] [address] [place] [address] 05/13/2024 Maxim Loomis Encounter for screen ing [...] Details Provider Name:Maxim Loomis, 05/13/2025 10:00:00 AM, [address] [place] [address] , [address], [place], [address], Insurance Providers Payer Name Payer Address Payer Phone Subscriber Number Group Number Insured Name Patient Relationship to Insured Coverage Start Date Coverage End Date [facility] [address] [place] [phone] [id number] Melonie Lucas Self - patient is the insured Medical (General) History Medical History History ICD Code hypertension hyperlipidemia 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
--- OUTSIDE RECORDS SUMMARY | 2024-08-08 07:44 | XMS_ITS ---
Author Organization Maxim Loomis III, MD Address [address] [place] [address] Care Team Providers Care Senior Court Office Assistant Name Role Phone Dontae Nelson MD Primary Care Provider Maxim Paul [phone] Allergies Allergen (clinical drug ingredient) Drug/Non Drug [...] Date Provider Diagnosis Maxim Loomis III, MD [address] [place] [address] [address] [place], [place] [address] 08/25/2023 Maxim Loomis Encounter for screen ing [...] OV Provider Name:Maxim Hoganrne, 05/13/2025 10:00:00 AM, [address] [place] [address] DR, [address], [place], [address], Progress Notes * Melonie LUCASDOB:1950 (72 yo F)Acc No.[id number]:08/25/2023 Progress Notes Patient:?Melonie Lucas Provider:?Maxim Loomis MD :1950???Age:72 Y???Sex:Female D ate:08/25/2023 Address:[address] [place] [address], [address], [id number] Pcp:Dontae Nelson MD Subjective: * Chief Complaints: [...] lesions. 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 She was born in [place], [place]. * Medications:?TakingMeclizine HCl 50 MG Tablet [...] Loomis MD Date:?08/15 Generated for Anupama amaral/Robert/Markell on:?08/08/2024 07:44 AM EDT History and Physical Notes * [...]
--- OUTSIDE RECORDS SUMMARY | 2024-08-08 07:45 | XMS_ITS | Patient Health Record ---
Author Organization [facility] Address [address] [facility] [place] [address] Care Team Providers Care Help Desk Intern Name Role Phone Leslie CRAFT, Dontae Primary Care Provider Iva Munson Unavailable [phone] Joni Anderson Unavailable [phone] Allergies Allergen (clinical drug ingredient) Drug/Non Drug [...] Ordered Date Performed Result Body Sit e 27733-CZMGHUI NAIL, 6 OR MORE 05/20/2024 N/A Encounters Encounter Location Date Provider Diagnosis [facility] [address] 09/18/2023 Joni Anderson Pain in left foot [...] Peroneal tendonitis of right lower leg M76.71 [facility] [address] [address] 01/17/2024 Joni Anderson Pain in left foot [...] Peroneal tendonitis of right lower leg M76.[address] [address] 05/20/2024 Iva Millan Pain in right toe(s) M79.674 ; Onychomycosis B35.1 and Pain in left toe(s) M79.[address] [address] 09/18/2023 Joni Anderson Assessments Encounter Date Diagnosis (ICD Code) Assessment Notes Treatment Notes Treatment Clinical Notes Section Notes 09/18/2023 Pain in left foot (ICD-10 - M79.672) 01/17/2024 Pain in left foot (ICD-10 - M79.672) 05/20/2024 Pain in right toe(s) (ICD-10 - M79.674) 05/20/2024 Onychomycosis (ICD-10 - B35.1) 01/17/2024 Pain in right foot (ICD-10 - M79.671) 09/18/2023 Pain in right foot (ICD-10 - M79.671) 09/18/2023 Hallux valgus (acquired), left foot (ICD-10 - M20.12) 01/17/2024 Hallux valgus (acquired), left foot (ICD-10 - M20.12) 05/20/2024 Pain in left toe(s) (ICD-10 - M79.675) 09/18/2023 Hallux valgus (acquired), right foot (ICD-10 - M20.11) 01/17/2024 Hallux valgus (acquired), right foot (ICD-10 - M20.11) 01/17/2024 Other hammer toe(s) (acquired), left foot (ICD-10 - M20.42) 09/18/2023 Other hammer toe(s) (acquired), left foot (ICD-10 - M20.42) 09/18/2023 Other hammer toe(s) (acquired), right foot (ICD-10 - M20.41) 01/17/2024 Other hammer toe(s) (acquired), right foot [...] Date X ray : Foot, right 3V 04/19/2019 X ray : Foot, right 3V 05/04/2021 64414-BYXHGIY NAIL, 6 OR MORE 05/20/2024 61550-Xibi Destruction, -08/28/2015 79329-Jfbp Destruction, 04-3010/09/2015 33225-Fuak Destruction, -14 12/18/2015 41925-Rpvi Destruction, -14 03/18/2016 66893-Egqw Destruction, -14 03/15/2011 95498-Eguq Destruction, 04-3007/12/2011 00441-Mmwy Destruction, -14 10/25/2011 08852-Lufl Destruction, -14 03/06/2012 78570-Qpak Destruction, -14 09/04/2012 26812-Bvpf Destruction, -03/08/2013 45867-Gfbe Destruction, -14 07/12/2013 80685-Gwdj Destruction, 1-14 10/29/2013 64452-Dmjeorbv Plate 02/20/2015 06674- Debride <25 sq cm 05/29/2015 83472- Debride <25 sq cm 08/28/2015 17991- Debride <25 sq cm 12/09/2014 Next Appt Details Provider Name:Iva mccann, 10/07/2024 09:15:00 AM, [address] [place], [address], Insurance Providers Payer Name Payer Address Payer Phone Subscriber Number Group Number Insured Name Patient Relationship to Insured Coverage Start Date Coverage End Date [facility] ([facility]) [address] [place] [address] [id number] Melonie Conde Self - patient is the [...] Arthroscopic knee surgery 03/13/17 Short stay surgery- [facility] 02/06/13 [facility] ctr-D&C 2010
--- OUTSIDE RECORDS SUMMARY | 2024-08-08 07:45 | XMS_ITS ---
Author Organization Maxim Loomis III, MD Address [address] [place] [address] Care Team Providers Care Business Process Coordinator Name Role Phone Dontae Nelson MD Primary Care Provider Maxim Paul [phone] Allergies Allergen (clinical drug ingredient) Drug/Non Drug [...] Problem Status W/U Status Risk Notes Problem [id number] Encounter for screening mammogram for malignant neoplasm [...] Provider Diagnosis Maxim Loomis III, MD [address] [place] [address] [place] [address] 05/13/2024 Maxim Loomis Encounter for screen ing [...] V Provider Name:Maxim Loomis, 05/13/2025 10:00:00 AM, [address] [place] [address] [address], [place], [address], Progress Notes * Melonie LUCASDOB:1950 (73 yo F)Acc No.[id number]:05/13/2024 Progress Notes Patient:?Melonie LUCAS Provider:?Maxim Loomis MD :1950???Age:73 Y???Sex:Female D ate:05/13/2024 Address:[address] [place] [address], [address], [facility] Pcp:Dontae Nelson MD Subjective: * Chief Complaints: [...] Non-User?Aggressive non-smoker ???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 She was born in [place], [place]. * Medications:?TakingClaritin 10 MG Tablet 1 [...] Loomis MD Date:?04/18 Generated for Anupama amaral/Robert/Autumnsmitting on:?08/08/2024 07:45 AM EDT History and Physical Notes * [...]
--- OUTSIDE RECORDS SUMMARY | 2024-08-08 07:45 | XMS_ITS | Clinical Summary ---
Author Organization [facility] Address [address] [place] [address] Phone Care Team Providers Care Marketing Planner Name Role Phone Anuradha Jacques MD Primary Care Provider [phone] Encounters Date Type Department Care Team Description 07/17/2024 Telephone Gastroenterology - [address] [facility] [address] [place] [address] Yanely Walker MD MISSING INFORMATION from Last 3 Months Surgical History Surgery Date Site/Laterality Comments STEREOTACTIC CORE BIOPSY 01/10/2008 Right BREAST LUMPECTOMY Right Medical History Medical History Date Comments BRCA1 gene mutation negative Ductal carcinoma in situ of breast Breast cancer (CMS/HCC V24, CMS/HCC V28) Family History Medical History Relation Name Comments [...] AM EST [facility]ointment [facility] [address] [address] Health Maintenance Due Date Last Done Comments Colorectal Cancer Screening: Colonoscopy 03/20/2022 Depression Screening 03/20/2022 Falls Risk Assessment 03/20/2022 Hepatitis C Screening 03/20/2022 Osteoporosis Screening (Bone Density Screening) 03/20/2022 Social Influencers of Health Screening 03/20/2022 COVID-19 Vaccine ( season) 2024 01/23/2024, 01/12/2023, 02/14/2022, Additional history exists RSV Immunization Adult Patients (1 - 1-dose 75+ series) 2024 DTaP,Tdap,and Td Vaccines (2 - Td or Tdap) 07/23/2025 07/24/2015 Breast Cancer Screening 03/01/2026 03/01/20 24, 02/27/2023, 02/23/2022, Additional history exists Zoster Vaccines Completed 02/09/2022, 12/08/2021 Pneumococcal Vaccine: 50+ Years Completed 04/07/2022, 03/16/2015 Influenza Vaccine Completed 01/16/2024, , 01/16/2022, Additional history exists HIB Vaccines Aged Out [...] age to complete this topic Meningococcal B Vaccine Aged Out No l onger eligible based on patient's age to complete [...] for biopsy. PQRI CPT II 3342F Code 03621, 55089 PQRI 225 CPT II 7025F TISSUE DENSITY: There are scattered areas of fibroglandular density. (BI-RADS category B) IMPRESSION: Benign. BI-RADS CATEGORY: 2 - BENIGN RECOMMENDATION: Screening bilateral mammogram is recommended in 1 year. Mammo Location: [facility], [facility], [address] [place] [address] -------- FINAL REPORT -------- Dictated By: Chriss Lagos Dictated Date: 03/01/2024 10:07 ET Assigned Physician: Chriss Lagos Reviewed and Electronically Signed By: Chriss Lagos Signed Date: 03/01/2024 10:13 ET Workstation ID: [id number] Transcribed By: Self Edit Transcribed Date: 03/01/2024 [...] and CC projection is performed in the [employer] 2000-D unit. ??Computer aided detection utilizing the iCAD system was utilized. FINDINGS: The breasts are [...] Prior studies most recently 02/27/2023 and most eksvmzaq99/19/2017. TECHNIQUE: Full-field digital mammography of the breasts bilaterallyconsisting of tomosynthesis in MLO and CC projection is performed in theorgangir.amographe 2000-D unit. Computer aided detection utilizing the iCADsystem was utilized. FINDINGS: The breasts are again [...] for biopsy. PQRI CPT II 3342F Code 12817, 08670 PQRI 225 CPT II 7025F TISSUE DENSITY: There are scattered areas of fibroglandular density.(BI-RADS category B) IMPRESSION: Benign. BI-RADS CATEGORY: 2 - BENIGN RECOMMENDATION: Screening bilateral mammogram is recommended in 1 year. Mammo Location: [facility], [facility], [address] [place] [address] -------- FINAL REPORT -------- Dictated By: Chriss Lagos Dictated Date: 03/01/2024 10:07 ET Assigned Physician: Chriss Lagos Reviewed and Electronically Signed By: Chriss Lagos Signed Date: 03/01/2024 10:13 ET Workstation ID: [id number] Transcribed By: Self Edit Transcribed Date: 03/01/2024 10:07 ET Dontae Nelosn MD IMG BI PROCEDURES Final Result from Last 3 Months or Most Recently Relevant to [place] [id number] [facility] Care Teams Marketing Planner Relationship Specialty Start Date End Date Anuradha Jacques MD [address] [place] [address] , [address] [facility] D/B/A: [facility] [place] PCP - General Internal Medicine 07/17/24
--- OUTSIDE RECORDS SUMMARY | 2024-08-08 07:45 | XMS_ITS ---
Author Organization [facility] Address [address] [facility] [place] [address] Care Team Providers Care Plastic Sheets Supervisor Name Role Phone Dontae Nelson MD Primary Care Provider UnavailIva Davila Unavailable [phone] Joni Anderson Unavailable [phone] Allergies Allergen (clinical drug ingredient) Drug/Non Drug [...] 01/17/2024 Encounters Encounter Location Date Provider Diagnosis [facility] [address] [place] [address] 01/17/2024 Joni Anderson Pain in left foot [...] Reason: Provider Name:Iva mccann, 10/07/2024 09:15:00 AM, [address] [place] [address], [address], Progress Notes * Melonie LUCAS MDOB: 0 (73 yo F)Acc No.[id number]:01/17/2024 Progress Note Patient:?Melonie Lucas M Provider:?Joni Anderson DPM :1950???Age:73 Y???Sex:Female D ate:01/17/2024 Address:[address] [place], [place] [address] Pcp:Dontae Nelson MD Subjective: * Chief Complaints: [...] 01/07/19Dental surgery 01/23/19 * Hospitalization/Major Diagno stic Procedure:?[facility] ctr-D&C 2011Short stay surgery- [facility] 02/06/13Arthroscopic knee surgery 03/13/17[facility] [place]- fractured left wrist 07/23/21 * Family History:?Mother: [...] DPM Date:? 024 Generated for Anupama amaral/Robert/Markell on:?08/08/2024 07:45 AM EDT History and Physical [...]
--- OUTSIDE RECORDS SUMMARY | 2024-08-08 07:45 | XMS_ITS ---
Author Organization [facility] Address [address] [place] [address] Care Team Providers Care Rn Telephone Triage Name Role Phone Dontae Nelson MD Primary Care Provider Iva Munson Unavailable [phone] Allergies Allergen (clinical drug ingredient) Drug/Non Drug [...] Ordered Date Performed Result Body Sit e 47932-DAZIBNJ NAIL, 6 OR MORE 05/20/2024 N/A Encounters Encounter Location Date Provider Diagnosis [facility] [address] [address] 05/20/2024 Iva Millan Pain in right toe(s) M79.674 ; Onychomycosis B35.1 and Pain in left toe(s) M79.675 Assessments Encounter Date Diagnosis (ICD Code) Assessment Notes Treatment Notes Treatment Clinical Notes Section Notes 05/20/2024 Pain in right toe(s) (ICD-10 - M79.674) 05/20/2024 Onychomycosis (ICD-10 - B35.1) 05/20/2024 Pain in left toe(s) (ICD-10 - M79.675) Plan Of Treatment Pending Test Test Name Order Date 10031-DUNBFXF NAIL, 6 OR MORE 05/20/2024 Next Appt Details Follow Up: 3 Months, Reason: Provider Name:Iva Jacksonsharri siobhan, 10/07/2024 09:15:00 AM, [address] [place] [address], [address], Procedure Notes * Category Sub-Category Detail Notes [...] use of a nail nipper and/or dremel-type computer numerical control grinder, to a more viable healthy nail plate [...] to maintain effectiveness in symptomatic relief - 81470, Pt wishes to continue with the present treatment plan Progress Notes * Melonie LUCAS MDOB: 0 (73 yo F)Acc No.[id number]:05/20/2024 Progress Note Patient:?Melonie LUCAS M Provider:?Iva Millan DPM :1950???Age:73 Y???Sex:Female D ate:05/20/2024 Address:[address] [place], [place] [address] Pcp:Dontae Nelson MD Subjective: * Chief Complaints: [...] 01/07/19Dental surgery 01/23/19 * Hospitalization/Major Diagno stic Procedure:?[facility] ctr-D&C 2011Short stay surgery- [facility] 02/06/13Arthroscopic knee surgery 03/13/17[facility] [place]- fractured [...] use of a nail nipper and/or dremel-type computer numerical control grinder, to a more viable healthy nail plate [...] to maintain effectiveness in symptomatic relief - [address]3908, Pt wishes to continue with the present treatment plan.? * Procedure Codes:?52328 KARUNA WHITE, 6 OR MORE * Follow Up:?3 Months * Images: * Sign off status: Completed true * Provider:?Iva Millan DPM Date:?0 05/20/2024 Generated for Anupama amaral/Robert/Markell on:?08/08/2024 07:44 AM [...]
--- OUTSIDE RECORDS SUMMARY | 2024-08-08 07:45 | XMS_ITS ---
Author Organization [facility] Address [address] [place] [address] Care Team Providers Care Tank Tester Name Role Phone Dontae Nelson MD Primary Care Provider Iva Munson Unavailable [phone] Joni Anderson [phone] REASON FOR VISIT BUY Pedag [employer]iva [employer] #39 / L 9 Encounters Encounter Location Date Provider Diagnosis [facility] [address] [place] [address] 09/18/2023 Joni Anderson Plan Of Treatment Next Appt Details Provider Name:Iva mccann, 10/07/2024 09:15:00 AM, [address] [place], [address], Progress Notes * Melonie LUCAS MDOB: 0 (72 yo F)Acc No.[id number]:09/18/2023 Patient:?Melonie Lucas :1950???Age:72 Y???Sex:Female Address:[address] [place] [address] [address], [place], [address] * true * Date:? Generated for Printi cristin/Олегg/eTransmitting on:?08/08/2024 07:44 AM EDT
--- OUTSIDE RECORDS SUMMARY | 2024-08-08 07:45 | XMS_ITS ---
Author Organization Maxim Loomis III, MD Address [address] [place] [address] Care Team Providers Care Caramel Coloring Operator Name Role Phone Dontae Nelson MD Primary Care Provider Maxim Paul [phone] Allergies Allergen (clinical drug ingredient) Drug/Non Drug [...] Provider Diagnosis Maxim Loomis III, MD [address] [place] [address] [place] [address] 05/09/2023 Maxim Loomis Encounter for screen ing [...] tests Provider Name:Maxim Loomis, 05/13/2025 10:00:00 AM, [address] [place] [address] [address], [place], [address], Progress Notes * Melonie LUCASDOB:1950 (72 yo F)Acc No.[id number]:05/09/2023 Progress Notes Patient:Melonie Klein Provider:?Maxim Loomis MD :1950???Age:72 Y???Sex:Female D ate:05/09/2023 Address:[address] [place] [address], [address], [place] Pcp:Dontae Nelson MD Subjective: * Chief Complaints: [...] non-smoker ???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 She was born in [place], [place]. * Medications:?TakingTolnaftat e , Notes: As [...] Loomis MD Date:?04/18 Generated for Anupama amaral/Robert/eTransmitting on:?08/08/2024 07:44 AM EDT History and Physical [...]
[2024-08-08 11:07] LABS: Alanine Aminotransferase 23 U/L (0-31); Alkaline Phosphatase 97 U/L (39-117); Anion Gap 8 (12-20); Aspartate Amino Transferase 29 U/L (5-31); Bilirubin Total 0.5 mg/dL (0.0-1.0); Blood Urea Nitrogen 14 mg/dL (9-16); Calcium 9.5 mg/dL (8.4-10.2); Carbon Dioxide 30 mmol/L (22-29); Chloride 106 mmol/L (96-108); Cholesterol 192 mg/dL (<200); Estimated Glomerular Filt Rate > 60; Glucose Fasting 88 mg/dL (60-99); HDL Cholesterol 59 mg/dL (>40); LDL Cholesterol Calculated 111 mg/dL (<100); Potassium 4.3 mmol/L (3.3-5.1); Sodium 140 mmol/L (135-145); Triglycerides 111 mg/dL (<150)
[2024-08-08 11:27] LABS: Thyroid Stimulating Hormone 2.85 uIU/mL (0.32-4.0)
== END 2024-08-08 07:42 | disposition home or self-care (01) ==
LOC: HO.10HDL 07:41
PROVIDERS: Visit Provider Internal Medicine
DX: E78.5 Hyperlipidemia, unspecified (principal); E03.9 Hypothyroidism, unspecified; R10.9 Unspecified abdominal pain
CPT/HCPCS: 36415; 80053; 80061; 84443

== ENCOUNTER 2024-08-12 10:42 | Outpatient (REF) | payer OTHER, SELFPAY ==
--- NOTE | ~2024-08-12 | US_ITS ---
CLINICAL HISTORY: D21.9 - leiomyoma, unable to tolerate transvaginal probe US pelvis transabdominal with Doppler Comparison: US/SR - US PELVIC AND TRANSVAGINAL - 06/21/23 10:54 EST US/SR - US PELVIC AND TRANSVAGINAL - 06/10/22 11:23 EST Findings: Transabdominal scanning performed with Doppler. Anteverted uterus is 6.9 cm length. Central uterine fibroid measuring 63 mm is present (previously measuring 69 mm). Endometrium is ex. By central uterine fibroid. Ovaries are not seen. Normal color Doppler with arterial/venous spectral tracing of the bilateral adnexae. No free fluid. IMPRESSION: 1. Slight decrease in uterine fibroid. This document has been electronically signed by: Giuliana Gamez MD on 08/14/2024 14:25:05
--- OUTSIDE RECORDS SUMMARY | 2024-08-12 12:41 | XMS_ITS | Clinical Summary ---
Author Organization [facility] Address [address] [place] [address] Phone Care Team Providers Care Obstetric Assistant Name Role Phone Anuradha Jacques MD Primary Care Provider [phone] Encounters Date Type Department Care Team Description 07/17/2024 Telephone Gastroenterology - [address] [facility] [address] [place] [address] Yanely Walker MD MISSING INFORMATION [...] AM EST [facility]ointment [facility] [address] [address] Health Maintenance Due Date Last [...] for biopsy. PQRI CPT II 3342F Code 16373, 22461 PQRI 225 CPT II 7025F TISSUE DENSITY: There are scattered areas of fibroglandular density. (BI-RADS category B) IMPRESSION: Benign. BI-RADS CATEGORY: 2 - BENIGN RECOMMENDATION: Screening bilateral mammogram is recommended in 1 year. Mammo Location: [facility], [facility], [address] [place] [address] -------- FINAL REPORT -------- Dictated By: Chriss Lagos Dictated Date: 03/01/2024 10:07 ET Assigned Physician: Chriss Lagos Reviewed and Electronically Signed By: Chriss Lagos Signed Date: 03/01/2024 10:13 ET Workstation ID: [id number] Transcribed By: Self Edit Transcribed Date: 03/01/2024 [...] and CC projection is performed in the [employer] 2000-D unit. ??Computer aided detection utilizing the [...] Prior studies most recently 02/27/2023 and most /19/2017. TECHNIQUE: Full-field digital mammography of the breasts bilaterallyconsisting of tomosynthesis in MLO and CC projection is performed in thePropable[employer]he 2000-D unit. Computer aided detection utilizing the [...] for biopsy. PQRI CPT II 3342F Code 85332, 75071 PQRI 225 CPT II 7025F TISSUE DENSITY: There are scattered areas of fibroglandular density.(BI-RADS category B) IMPRESSION: Benign. BI-RADS CATEGORY: 2 - BENIGN RECOMMENDATION: Screening bilateral mammogram is recommended in 1 year. Mammo Location: [facility], [facility], [address] [place] [address] -------- FINAL REPORT -------- Dictated By: Chriss Lagos Dictated Date: 03/01/2024 10:07 ET Assigned Physician: Chriss Lagos Reviewed and Electronically Signed By: Chriss Lagos Signed Date: 03/01/2024 10:13 ET Workstation ID: [id number] Transcribed By: Self Edit Transcribed Date: 03/01/2024 10:07 ET Dontae Nelson MD IMG BI PROCEDURES Final Result from Last 3 Months or Most Recently Relevant to [place] [id number] [facility] Care Teams Obstetric Assistant Relationship Specialty Start Date End Date Anuradha Jacques MD [address] [place] [address] , [address] [facility] D/B/A: [facility] [place], [place] PCP - General Internal Medicine 07/17/24
--- OUTSIDE RECORDS SUMMARY | 2024-08-12 12:41 | XMS_ITS ---
Author Organization [facility] Address [address] [place] [address] Care Team Providers Care Take Out Waitress Name Role Phone Dontae Nelson MD Primary Care Provider UnavailIva Davila Unavailable [phone] Joni Anderson Unavailable [phone] Allergies Allergen (clinical drug ingredient) Drug/Non Drug [...] 01/17/2024 Encounters Encounter Location Date Provider Diagnosis [facility] [place] [address] [place] [address] 01/17/2024 Joni Anderson Pain in left foot [...] Reason: Provider Name:Iva mccann, 10/07/2024 09:15:00 AM, [address] [place] [address], [address], Progress Notes * Melonie LUCAS MDOB: 0 (73 yo F)Acc No.[id number]:01/17/2024 Progress Note Patient:?Melonie Lucas M Provider:?Joni Anderson DPM :1950???Age:73 Y???Sex:Female D ate:01/17/2024 Address:[address] [place], [place] [address] Pcp:Dontae Nelson MD Subjective: * Chief Complaints: [...] 01/07/19Dental surgery 01/23/19 * Hospitalization/Major Diagno stic Procedure:?[facility] ctr-D&C 2011Short stay surgery- [facility] 02/06/13Arthroscopic knee surgery 03/13/17[facility] [place]- fractured left wrist 07/23/21 * Family History:?Mother: [...] DPM Date:? 024 Generated for Anupama amaral/Robert/Markell on:?08/12/2024 12:41 PM EDT History and Physical Notes * [...]
--- OUTSIDE RECORDS SUMMARY | 2024-08-12 12:41 | XMS_ITS ---
Author Organization [facility] Address [address] [place] [address] Care Team Providers Care Butter Wrapper Name Role Phone Dontae Nelson MD Primary Care Provider Iva Munson Unavailable [phone] Joni Anderson [phone] REASON FOR VISIT BUY Pedag Viva Sport #39 / L 9 Encounters Encounter Location Date Provider Diagnosis [facility] [address] [place] [address] 09/18/2023 Joni Anderson Plan Of Treatment Next Appt Details Provider Name:Iva mccann, 10/07/2024 09:15:00 AM, [address] [place], [address], Progress Notes * Melonie LUCAS MDOB: 0 (72 yo F)Acc No.[id number]:09/18/2023 Patient:?Melonie Lucas :1950???Age:72 Y???Sex:Female Address:[address] [place] [address] [address], [place], [address] * true * Date:? Generated for Printi ng/Fajaymieg/eTransmitting on:?08/12/2024 12:41 PM EDT
--- OUTSIDE RECORDS SUMMARY | 2024-08-12 12:42 | XMS_ITS ---
Author Organization [facility] Address [address] [facility] [address] Care Team Providers Care Laboratory Worker Name Role Phone Dontae Nelosn MD Primary Care Provider Iva Munson Unavailable [phone] Allergies Allergen (clinical drug ingredient) Drug/Non Drug [...] Ordered Date Performed Result Body Sit e 10369-PTMWVJE NAIL, 6 OR MORE 05/20/2024 N/A Encounters Encounter Location Date Provider Diagnosis [facility] [address] [address] 05/20/2024 Iva Millan Pain in right toe(s) M79.674 ; Onychomycosis B35.1 and Pain in left toe(s) M79.675 Assessments Encounter Date Diagnosis (ICD Code) Assessment Notes Treatment Notes Treatment Clinical Notes Section Notes 05/20/2024 Pain in right toe(s) (ICD-10 - M79.674) 05/20/2024 Onychomycosis (ICD-10 - B35.1) 05/20/2024 Pain in left toe(s) (ICD-10 - M79.675) Plan Of Treatment Pending Test Test Name Order Date 62620-PZRWYTL NAIL, 6 OR MORE 05/20/2024 Next Appt Details Follow Up: 3 Months, Reason: Provider Name:Iva Jacksonsharri siobhan, 10/07/2024 09:15:00 AM, [address] [place] [address], [phone], Procedure Notes * Category Sub-Category Detail Notes [...] of a nail nipper and/or dremel-type grinder outside diameter, to a more viable healthy nail plate [...] to maintain effectiveness in symptomatic relief - 03948, Pt wishes to continue with the present treatment plan Progress Notes * Melonie LUCAS MDOB: 0 (73 yo F)Acc No.[id number]:05/20/2024 Progress Note Patient:?Melonie LUCAS M Provider:?Iva Millan DPM :1950???Age:73 Y???Sex:Female D ate:05/20/2024 Address:[address] [place], [place] [id number] Pcp:Dontae Nelson MD Subjective: * Chief Complaints: [...] 01/07/19Dental surgery 01/23/19 * Hospitalization/Major Diagno stic Procedure:?[facility]-D&C 2011Short stay surgery- [facility] 02/06/13Arthroscopic knee surgery 03/13/17[place] Angela- [...] of a nail nipper and/or dremel-type grinder outside diameter, to a more viable healthy nail plate [...] to maintain effectiveness in symptomatic relief - 10610, Pt wishes to continue with the present treatment plan.? * Procedure Codes:?91104 KARUNA WHITE, 6 OR MORE * Follow Up:?3 Months * Images: * Sign off status: Completed true * Provider:?Iva Millan DPM Date:?0 05/20/2024 Generated for Anupama amaral/Robert/Markell on:?08/12/2024 12:41 PM [...]
--- OUTSIDE RECORDS SUMMARY | 2024-08-12 12:42 | XMS_ITS | Patient Health Record ---
Author Organization [facility] Address [address] [facility] [place] [address] Care Team Providers Care Organic Preparation Analyst Name Role Phone Leslie CRAFT, Dontae Primary Care Provider Iva Munson Unavailable [phone] Joni Anderson Unavailable [phone] Allergies Allergen (clinical drug ingredient) Drug/Non Drug [...] Ordered Date Performed Result Body Sit e 37331-LHGTSHI NAIL, 6 OR MORE 05/20/2024 N/A Encounters Encounter Location Date Provider Diagnosis [facility] [address] 09/18/2023 Joni Anderson Pain in left foot [...] Peroneal tendonitis of right lower leg M76.71 [facility] [address] [address] 01/17/2024 Joni Anderson Pain in left foot [...] Peroneal tendonitis of right lower leg M76.[address] [address] 05/20/2024 Iva Millan Pain in right toe(s) M79.674 ; Onychomycosis B35.1 and Pain in left toe(s) M79.[address] [address] 09/18/2023 Joni Anderson Assessments Encounter Date Diagnosis [...] X ray : Foot, right 3V 05/04/2021 74643-LMGMIVP NAIL, 6 OR MORE 05/20/2024 02351-Ajxb Destruction, -08/28/2015 47755-Zdwm Destruction, 04-3010/09/2015 81174-Hxef Destruction, -14 12/18/2015 67579-Qdmb Destruction, -14 03/18/2016 89109-Kazy Destruction, -14 03/15/2011 38333-Aeee Destruction, 04-3007/12/2011 39651-Taug Destruction, -14 10/25/2011 17306-Lurk Destruction, -14 03/06/2012 26594-Phjq Destruction, -14 09/04/2012 23427-Dxgl Destruction, -03/08/2013 75770-Ltzr Destruction, -14 07/12/2013 54296-Jzuf Destruction, 1-14 10/29/2013 63701-Wcfuckmg Plate 02/20/2015 23059- Debride <25 sq cm 05/29/2015 72542- Debride <25 sq cm 08/28/2015 39253- Debride <25 sq cm 12/09/2014 Next Appt Details Provider Name:Iva mccann, 10/07/2024 09:15:00 AM, [address] [place], [address], Insurance Providers Payer Name Payer Address Payer Phone Subscriber Number Group Number Insured Name Patient Relationship to Insured Coverage Start Date Coverage End Date [facility] [address] [place] [address] [id number] Melonie Conde Self - patient is the [...] Arthroscopic knee surgery 03/13/17 Short stay surgery- [facility] 02/06/13 [facility] ctr-D&C 2010
== END 2024-08-12 10:43 | disposition home or self-care (01) ==
LOC: HO.US 10:42
PROVIDERS: PCP Internal Medicine; Visit Provider Advanced Practice Midwife
DX: D21.9 Benign neoplasm of connective and other soft tissue, unspecified (principal)
CPT/HCPCS: 76856

== ENCOUNTER 2024-08-14 15:00 | Outpatient (AMB) | payer OTHER, SELFPAY ==
--- NOTE | 2024-08-14 15:09 | A.OFFPC_ITS ---
Vital Signs 08/14/24 15:10 Height 5 ft 5.5 in Weight 137 lb BMI 22.4 BP 130/72 Blood Pressure Location Lt brachial Position Sitting Intake Visit Reasons: Transfer Care from Dr. Nelson / [facility] f/u Carpet Or Rug Layer Helper Required: No Accompanied by: Self / Same As Patient Allergies amoxicillin [AMOXICILLIN] Allergy (Mild, Verified 08/14/24 15:16) DIARRHEA aspirin [Aspirin] Allergy (Mild, Verified 08/14/24 15:16) UPSET STOMACH azithromycin [From Zithromax] Adverse Reaction (Mild, Verified 08/14/24 15:16) DIARRHEA ibuprofen [From ADVIL] Adverse Reaction (Mild, Verified 08/14/24 15:16) GI UPSET oxycodone [From PERCOCET] Adverse Reaction (Mild, Verified 08/14/24 15:16) CAUSES LOOPINESS Medication List - Last Reconciled 08/14/24 by Anuradha Jacques MD amlodipine 5 mg PO DAILY atorvastatin 40 mg PO DAILY fluticasone propionate 50 mcg/actuation 1 spray intranasal DAILY levothyroxine 50 mcg PO DAILY meclizine 25 mg PO QID PRN triamcinolone acetonide 0.1% 1 appl topical BID-TID zolpidem (Ambien) 5 mg PO BEDTIME PRN Tobacco use date assessed: 04/26/24 Dental Screening Dental Screen Date: 04/26/24 HPI HPI Comments History of Present Illness Details The patient is a 73-year-old female presenting with a follow-up for ongoing management of multiple chronic conditions. Notable is her history of adverse reactions to medications such as amoxicillin, aspirin, ibuprofen, and azithromycin, with gastrointestinal distress as a negro symptom. Management of hypothyroidism is maintained with levothyroxine, hypertension with amlodipine, and hyperlipidemia with atorvastatin. The patient's regimen for episodic insomnia relies on zolpidem as needed. She experiences recurrent but resolved episodes of constipation, managed with lifestyle modifications including increased fluid and specific dietary intake, like prunes and pear jui ce. An ongoing condition of eczema warrants topical treatment but reports little current use. Renal function is documented with a history of right kidney nonfunctionality, contrasting with the adequate performance of the left kidney. Regular colonoscopy screenings monitor her colorectal health due to her history of polyps and a family history of colorectal cancer. [facility] Medical History (Updated 08/14/24 @ 20:45 by Anuradha Jacques MD) Fibroid Hydronephrosis Cyst of kidney, acquired Tendinitis involving right hip abductors Hypothyroidism Surgical History History of dental surgery History of cataract surgery History of knee surgery History of renal stent History of hysteroscopy History of lumpectomy of right breast Family History Father Diabetes CVD (cardiovascular disease) Hypertension Heart disease Mother Breast cancer Colon cancer Sister No problems noted. Family/Other Ovarian cancer Social History Housing: House Alcohol intake: current Alcohol intake frequency: holidays/special occasions only Patient Tobacco Use Status: Never used Tobacco Tobacco use type: Cigarette e-Cigarette/Vaping Use: Never Used Second Hand Smoke Exposure: No Advance Directives Date on File: 01/22/20 service: No Current occupational status: retired Cognitive needs: No Hearing needs: No Vision needs: Yes (Glasses) Questionnaire PHQ-9 Over the last 2 weeks, how often have you been bothered by any of the following problems? 1. Little interest or pleasure in doing things: not at all 2. Feeling down, depressed, or hopeless: not at all 3. Trouble falling or staying asleep, or sleeping too much: not at all 4. Feeling tired or having little energy: not at all 5. Poor appetite or overeating: not at all 6. Feeling bad about yourself - or that you are a failure or have let yourself or your family down: not at all 7. Trouble concentrating on things, such as reading the newspaper or watching television: not at all 8. Moving or speaking so slowly that other people could have noticed. Or the opposite - being so fidgety or restless that you have been moving around a lot more than usual: not at all 9. Thoughts that you would be better off or of hurting yourself in some way: not at all Total score: 0 Depression Screening Interpretation: Negative Depression Screening Done: Yes 32799 - PHQ-9 Billing: Yes Source: Developed by Drs. Maxim Solares, Aileen Bang Guzman and colleagues, with an educational belle from [employer]. Thrive Questionnaire Date Thrive assessed: 04/26/24 I am a: Patient What is your living situation today?: I have a steady place to live Within the past 12 months, did the food you bought not last and you didn't have the money to get more?: Never true Within the past 12 months, did you worry whether your food would run out before you got money to buy more?: Never true Do you have trouble paying for medicines?: No Do you have trouble getting transportation to medical appointments?: No Do you have trouble paying your heating and electricity bill?: No Do you have trouble taking care of your child, family member or friend?: No Do you have trouble with day-to-day activities such as bathing, preparing meals, shopping, managing finances, etc.?: No Are you currently unemployed and looking for a job?: No Are you interested in more education?: I choose not to answer this question Please select the resources that you would like help with: None Currently or been in a relationship where the following occur: No concerns reported THRIVE Score: 0 AUDIT C Alcohol Use Questionnaire (AUDIT-C) 1. How often do you have a drink containing alcohol?: Monthly or less 2. How many drinks containing alcohol do you have on a typical day when you are drinking?: 1 or 2 3. How often do you have six or more drinks on one occasion?: Never Total Score: 1 Score Reviewed/Action Taken: No TRICIA-7 AMB Questionnaire TRICIA-7 Date TRICIA - 7 assessed: 04/26/24 Feeling nervous, anxious, or on edge: 0 = Not at all Not being able to stop or control worryin = Not at all Worrying too much about different things: 0 = Not at all Trouble relaxin = Not at all Being so restless that it is hard to sit still: 0 = Not at all Becoming easily annoyed or irritable: 0 = Not at all Feeling afraid as if something awful might happen: 0 = Not at all Total TRICIA-7 score (0-4 normal; 5-9 mild; 10-14 moderate; 15-21 severe): 0 Source: Developed by Drs. Maxim Solares, Bang Payne and colleagues, with an educational belle from [employer]. TRICIA-7 Assessment Billing TRICIA-7 Assessment Tool: TRICIA-7 Assessment 29653 Review of Systems Const All systems reviewed & are unremarkable except as noted in HPI and below Card Denies chest pain at rest, Denies chest pain with activity, Denies edema, Denies irregular heart rhythm, Denies claudication, Denies dyspnea, Denies dyspnea on exertion, Denies orthopnea, Denies paroxysmal nocturnal dyspnea and Denies slow heart rate Resp Denies cough, Denies dyspnea and Denies dyspnea on exertion GI Denies abdominal pain, Denies change in bowel habits, Denies excessive flatus, Denies nausea and Denies vomiting Neuro Denies lack of coordination Physical exam (Primary Care) Vital Signs: Last Vital Signs BP 130/72 08/14/24 15:10 BMI result Body Mass Index 22.4 Tobacco/Smoking Status: Tobacco use Status Tobacco use date assessed 04/26/24 08/14/24 15:11 Patient Tobacco Use Status Never used Tobacco 08/14/24 15:11 Tobacco use type Cigarette 08/14/24 15:11 e-Cigarette/Vaping Use Never Used 08/14/24 15:11 PHQ-9: PHQ-9 Score PHQ-9: Total score 0 08/14/24 15:21 Depression Screening Interpretation: Negative Thrive Assessment: Date of Thrive Assessment Date Thrive assessed 04/26/24 08/14/24 15:11 Currently or been in a relationship where the following occur: No concerns reported Neck Neck: Yes normal visual inspection and Yes supple Resp Effort & Inspection: normal respiratory effort Auscultation: clear to auscultation bilaterally Cardio Jugular venous distension: no JVD Rate: regular rate Rhythm: regular rhythm Heart sounds: S1 normal heart sound present and S2 normal heart sound present Extrem General: Yes full ROM Coding Level of Care Code Est Pt Level 4 (62488) Complex EM visit Add On G2211 Diagnoses Hypertension I10 Hyperlipidemia E78.5 Hypothyroidism E03.9 Insomnia G47.00 Additional Codes TRICIA-7 Assessment Billing - TRICIA-7 Assessment Tool: TRICIA-7 Assessment 58280 ([id number]) PHQ-9 - 51676 - PHQ-9 Billing: Yes ([id number]) Time Spent (min) 22 Assessment & Plan Assessment & Plan (1) Hypertension: Code(s): I10 - Essential (primary) hypertension Category: Medical (2) Hyperlipidemia: Code(s): E78.5 - Hyperlipidemia, unspecified Category: Medical (3) Hypothyroidism: Code(s): E03.9 - Hypothyroidism, unspecified Category: Medical (4) Insomnia: Code(s): G47.00 - Insomnia, unspecified Category: Medical Plan The patient is counseled to avoid medications causing adverse reactions and maintain the current management of chronic conditions including hypothyroidism, hypertension, and hyperlipidemia through consistent medication adherence. Insomnia is treated with zolpidem, which she should take as needed. Eczema care, renal function evaluation, and preventative screenings are prioritized for health maintenance. Dietary enhancements support bowel regularity. Continued follow-ups gauge treatment effectiveness and overall well-being, ensuring proactive management of her health conditions. Patient was informed and verbally consented to the use of an ambient scribe for clinic note documentation during this visit. During our discussion, I reviewed the importance of avoiding medications that cause adverse reactions and reinforced adherence to her current medication regimen for chronic conditions like hypothyroidism, hypertension, hyperlipidemia, and insomnia. The benefits of maintaining these treatments, such as blood pressure and cholesterol reduction, were highlighted. We addressed constipation management strategies through diet and hydration. The patient's renal health was discussed, acknowledging the function of her left kidney. Colorectal screening is crucial given her history and family risk, and we planned follow-up appointments to monitor her lab results and health status. I encouraged her to adhere to her preventative care schedule and emphasized the importance of consistent monitoring and check-ups as a proactive approach to her healthcare. Orders: Orders Comprehensive Met. Panel 3 Months I10 - Essential (primary) hypertension Thyroid Stimulating Hormone 3 Months E03.9 - Hypothyroidism, unspecified Lipid Panel 3 Months E78.5 - Hyperlipidemia, unspecified Patient Instructions: - Avoid medications that cause known adverse reactions. - Continue taking hypothyroidism, blood pressure, and cholesterol medications as prescribed. - Use zolpidem for sleep as needed to manage insomnia. - Follow a high-fiber diet, increase fluid intake, and eat prunes for constipation. - Continue eczema treatment with cream as needed. - Attend regular follow-ups for kidney, lab, and preventative screenings. - Schedule and keep up with colonoscopy every five years.
[2024-08-14 15:10] VITALS: BP 130/72; BMI 22.4
--- OUTSIDE RECORDS SUMMARY | 2024-08-14 16:08 | XMS_ITS ---
Author Organization [facility] Address [address] [facility] [place] [address] Care Team Providers Care Manager Of Distribution Name Role Phone Dontae Nelson MD Primary Care Provider Iva Munson Unavailable [phone] Allergies Allergen (clinical drug ingredient) Drug/Non Drug [...] Ordered Date Performed Result Body Sit e 89061-ATWTEZA NAIL, 6 OR MORE 05/20/2024 N/A Encounters Encounter Location Date Provider Diagnosis [facility] [address] [address] 05/20/2024 Iva Millan Pain in right toe(s) M79.674 ; Onychomycosis B35.1 and Pain in left toe(s) M79.675 Assessments Encounter Date Diagnosis (ICD Code) Assessment Notes Treatment Notes Treatment Clinical Notes Section Notes 05/20/2024 Pain in right toe(s) (ICD-10 - M79.674) 05/20/2024 Onychomycosis (ICD-10 - B35.1) 05/20/2024 Pain in left toe(s) (ICD-10 - M79.675) Plan Of Treatment Pending Test Test Name Order Date 92918-OVHRZYK NAIL, 6 OR MORE 05/20/2024 Next Appt Details Follow Up: 3 Months, Reason: Provider Name:Iva Jacksonsharri siobhan, 10/07/2024 09:15:00 AM, [address] [place] [address], [address], Procedure Notes * Category Sub-Category Detail Notes [...] use of a nail nipper and/or dremel-type shear grinder operator, to a more viable healthy nail [...] to maintain effectiveness in symptomatic relief - 75142, Pt wishes to continue with the present treatment plan Progress Notes * Melonie LUCAS MDOB: 0 (73 yo F)Acc No.[id number]:05/20/2024 Progress Note Patient:?Melonie LUCAS M Provider:?Iva Millan DPM :1950???Age:73 Y???Sex:Female D ate:05/20/2024 Address:[address] [place], [place] [id number] Pcp:Dontae Nelson MD Subjective: * Chief Complaints: [...] 01/07/19Dental surgery 01/23/19 * Hospitalization/Major Diagno stic Procedure:?[facility]-D[facility]C 2011Short stay surgery- [facility] 02/06/13Arthroscopic knee surgery 03/13/17[place] [...] use of a nail nipper and/or dremel-type shear grinder operator, to a more viable healthy nail [...] to maintain effectiveness in symptomatic relief - 30947, Pt wishes to continue with the present treatment plan.? * Procedure Codes:?18021 KARUNA WHITE, 6 OR MORE * Follow Up:?3 Months * Images: * Sign off status: Completed true * Provider:?Iva Millan DPM Date:?0 05/20/2024 Generated for Anupama amaral/Robert/Markell on:?08/14/2024 04:07 PM EDT History and Physical Notes * [...]
--- OUTSIDE RECORDS SUMMARY | 2024-08-14 16:08 | XMS_ITS | Patient Health Record ---
Author Organization [facility] Address [address] [facility] [place] [address] Care Team Providers Care Ship Liner Name Role Phone Leslie CRAFT, Dontae Primary Care Provider Iva Munson Unavailable [phone] Joni Anderson Unavailable [phone] Allergies Allergen (clinical drug ingredient) Drug/Non Drug [...] Ordered Date Performed Result Body Sit e 03443-KSWNUER NAIL, 6 OR MORE 05/20/2024 N/A Encounters Encounter Location Date Provider Diagnosis [facility] [address] 09/18/2023 Joni Anderson Pain in left foot [...] Peroneal tendonitis of right lower leg M76.[address] [facility] [address] [address] 01/17/2024 Joni Anderson Pain in left foot [...] Peroneal tendonitis of right lower leg M76.[address] [address] 05/20/2024 Iva Millan Pain in right toe(s) M79.674 ; Onychomycosis B35.1 and Pain in left toe(s) M79.[address] [address] 09/18/2023 Joni Anderson Assessments Encounter Date Diagnosis [...] X ray : Foot, right 3V 05/04/2021 15876-TWTTUAP NAIL, 6 OR MORE 05/20/2024 33461-Ugyv Destruction, -08/28/2015 99295-Acnj Destruction, 04-3010/09/2015 05701-Rqfo Destruction, -14 12/18/2015 66270-Jelp Destruction, -14 03/18/2016 47180-Uudm Destruction, -14 03/15/2011 90852-Yiyk Destruction, 04-3007/12/2011 47053-Eatu Destruction, -14 10/25/2011 73363-Jxai Destruction, -14 03/06/2012 92459-Zphi Destruction, -14 09/04/2012 46676-Zfjo Destruction, -03/08/2013 24558-Tbfq Destruction, -14 07/12/2013 36274-Rqvo Destruction, 1-14 10/29/2013 60025-Gpbaiqaq Plate 02/20/2015 71500- Debride <25 sq cm 05/29/2015 67192- Debride <25 sq cm 08/28/2015 85448- Debride <25 sq cm 12/09/2014 Next Appt Details Provider Name:Iva mccann, 10/07/2024 09:15:00 AM, [address] [place], [address], Insurance Providers Payer Name Payer Address Payer Phone Subscriber Number Group Number Insured Name Patient Relationship to Insured Coverage Start Date Coverage End Date [facility] [address] [place] [address] [phone] [id number] Melonie Conde Self - patient is the [...] Arthroscopic knee surgery 03/13/17 Short stay surgery- [facility] 02/06/13 [facility] ctr-D&C 2010
--- OUTSIDE RECORDS SUMMARY | 2024-08-14 16:08 | XMS_ITS | Clinical Summary ---
Author Organization [facility] Address [address] [place] [address] Phone Care Team Providers Care Law Researcher Name Role Phone Anuradha Jacques MD Primary Care Provider [phone] Encounters Date Type Department Care Team Description 07/17/2024 Telephone Gastroenterology - [address] [facility] [address] [place] [address] Yanely Walker MD MISSING INFORMATION [...] AM EST [facility]ointment [facility] at [address] [address] Health Maintenance Due Date Last [...] for biopsy. PQRI CPT II 3342F Code 28902, 22068 PQRI 225 CPT II 7025F TISSUE DENSITY: There are scattered areas of fibroglandular density. (BI-RADS category B) IMPRESSION: Benign. BI-RADS CATEGORY: 2 - BENIGN RECOMMENDATION: Screening bilateral mammogram is recommended in 1 year. Mammo Location: [facility], [facility], [address] [place] [address] -------- FINAL REPORT -------- Dictated By: Chriss Lagos Dictated Date: 03/01/2024 10:07 ET Assigned Physician: Chriss Lagos Reviewed and Electronically Signed By: Chriss Lagos Signed Date: 03/01/2024 10:13 ET Workstation ID: [id number] Transcribed By: Self Edit Transcribed Date: 03/01/2024 [...] and CC projection is performed in the [employer] 2000-D unit. ??Computer aided detection utilizing the [...] Prior studies most recently 02/27/2023 and most mogxabyz87/19/2017. TECHNIQUE: Full-field digital mammography of the breasts bilaterallyconsisting of tomosynthesis in MLO and CC projection is performed in theARIO Data Networksographe 2000-D unit. Computer aided detection utilizing the [...] for biopsy. PQRI CPT II 3342F Code 63647, 92090 PQRI 225 CPT II 7025F TISSUE DENSITY: There are scattered areas of fibroglandular density.(BI-RADS category B) IMPRESSION: Benign. BI-RADS CATEGORY: 2 - BENIGN RECOMMENDATION: Screening bilateral mammogram is recommended in 1 year. Mammo Location: [facility], [facility], [address] [place] [address] -------- FINAL REPORT -------- Dictated By: Chriss Lagos Dictated Date: 03/01/2024 10:07 ET Assigned Physician: Chriss Lagos Reviewed and Electronically Signed By: Chriss Lagos Signed Date: 03/01/2024 10:13 ET Workstation ID: [id number] Transcribed By: Self Edit Transcribed Date: 03/01/2024 10:07 ET Dontae Nelson MD IMG BI PROCEDURES Final Result from Last 3 Months or Most Recently Relevant to [place] [address] [employer] Care Teams Law Researcher Relationship Specialty Start Date End Date Anuradha Jacques MD [address] [place] [address] , [address] [facility] [place], [place] PCP - General Internal Medicine 07/17/24
--- OUTSIDE RECORDS SUMMARY | 2024-08-14 16:08 | XMS_ITS ---
Author Organization [facility] Address [address] [place] [address] Care Team Providers Care Telecommunications Officer Name Role Phone Dontae Nelson MD Primary Care Provider Iva Munson Unavailable [phone] Joni Anderson [phone] REASON FOR VISIT BUY Pedag Viva Sport #39 / L 9 Encounters Encounter Location Date Provider Diagnosis [facility] [address] [place] [address] 09/18/2023 Joni Anderson Plan Of Treatment Next Appt Details Provider Name:Iva mccann, 10/07/2024 09:15:00 AM, [address] [place], [address], Progress Notes * Melonie LUCAS MDOB: 0 (72 yo F)Acc No.[id number]:09/18/2023 Patient:?Melonie Lucas :1950???Age:72 Y???Sex:Female Address:[address] [place] [address] [address], [place], [address] * true * Date:? Generated for Printi cristin/Олегg/eTransmitting on:?08/14/2024 04:07 PM EDT
--- OUTSIDE RECORDS SUMMARY | 2024-08-14 16:08 | XMS_ITS ---
Author Organization [facility] Address [address] [facility] [address] Care Team Providers Care Control Clerk Auditing Name Role Phone Dontae Nelson MD Primary Care Provider UnavailIva Davila Unavailable [phone] Joni Anderson Unavailable [phone] Allergies Allergen (clinical drug ingredient) Drug/Non Drug [...] 01/17/2024 Encounters Encounter Location Date Provider Diagnosis [facility] [place] [address] [place] [address] 01/17/2024 Joni Anderson Pain in left foot [...] Reason: Provider Name:Iva mccann, 10/07/2024 09:15:00 AM, [address] [place] [address], [address], Progress Notes * Melonie LUCAS MDOB: 0 (73 yo F)Acc No.[id number]:01/17/2024 Progress Note Patient:?Melonie Lucas M Provider:?Joni Anderson DPM :1950???Age:73 Y???Sex:Female D ate:01/17/2024 Address:[address] [place], [place] [id number] Pcp:Dontae Nelson MD Subjective: * Chief Complaints: [...] 01/07/19Dental surgery 01/23/19 * Hospitalization/Major Diagno stic Procedure:?[facility] 2011Short stay surgery- [facility] 02/06/13Arthroscopic knee surgery 03/13/17[facility] [place]- fractured left wrist 07/23/21 * Family History:?Mother: [...] DPM Date:? 024 Generated for Anupama amaral/Robert/Markell on:?08/14/2024 04:07 PM [...]
== END 2024-08-14 15:31 | disposition home or self-care (01) ==
LOC: HO.HMCH 15:01
PROVIDERS: PCP Internal Medicine; Visit Provider Internal Medicine
DX: I10 Essential (primary) hypertension (principal); E78.5 Hyperlipidemia, unspecified; E03.9 Hypothyroidism, unspecified; G47.00 Insomnia, unspecified

== ENCOUNTER → 2024-08-14 15:00 | Outpatient (BNVA) | payer OTHER, SELFPAY | PROVIDERS: PCP Internal Medicine; Visit Provider Internal Medicine | DX: I10 Essential (primary) hypertension (principal); E78.5 Hyperlipidemia, unspecified; E03.9 Hypothyroidism, unspecified; G47.00 Insomnia, unspecified; Z79.899 Other long term (current) drug therapy | CPT/HCPCS: 96127 ==

== ENCOUNTER 2024-08-28 12:55 | Outpatient (AMB) | payer OTHER, SELFPAY ==
--- NOTE | 2024-08-28 12:57 | A.OFFVIS_ITS ---
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 She has no vaginal bleeding, pelvic pain or bloating pressure. [facility] Medical History Fibroid Hydronephrosis Cyst of kidney, acquired Tendinitis involving right hip abductors Hypothyroidism Surgical History History of dental surgery History of cataract surgery History of knee surgery History of renal stent History of hysteroscopy History of lumpectomy of right breast Family History Father Diabetes CVD (cardiovascular disease) Hypertension Heart disease Mother Breast cancer Colon cancer Sister No problems noted. Family/Other Ovarian cancer Social History Housing: House Alcohol intake: current Alcohol intake frequency: holidays/special occasions only Patient Tobacco Use Status: Never used Tobacco Tobacco use type: Cigarette e-Cigarette/Vaping Use: Never Used Second Hand Smoke Exposure: No Advance Directives Date on File: 01/22/20 service: No Current occupational status: retired Cognitive needs: No Hearing needs: No Vision needs: Yes (Glasses) Review of Systems Const All systems reviewed & are unremarkable except as noted in HPI and below Endo Reports no additional complaints Physical Exam Const General: cooperative, healthy appearing and no acute distress Psych Appearance: well kempt Attitude: cooperative Thought process: Normal thought process present Results Reviewed Results Reviewed: [address] [address] Ultrasound Report Signed Patient: Melonie Lucas MR#: [id number] : 1950 Acct:[id number] Age/Sex: 73 / F ADM Date: 08/12/24 Loc: HO.US Attending Dr: Makenzie Vega CNM Ordering Physician: Makenzie Vega CNM Date of Service: 08/12/24 Procedure(s): US pelvic complete Accession Number(s): [id number] cc: Makenzie Vega CNM; Anuradha Kruger MD~ CLINICAL HISTORY: D21.9 - leiomyoma, unable to tolerate transvaginal probe US pelvis transabdominal with Doppler Comparison: US/SR - US PELVIC AND TRANSVAGINAL - 06/21/23 10:54 EST US/SR - US PELVIC AND TRANSVAGINAL - 06/10/22 11:23 EST Findings: Transabdominal scanning performed with Doppler. Anteverted uterus is 6.9 cm length. Central uterine fibroid measuring 63 mm is present (previously measuring 69 mm). Endometrium is ex. By central uterine fibroid. Ovaries are not seen. Normal color Doppler with arterial/venous spectral tracing of the bilateral adnexae. No free fluid. IMPRESSION: 1. Slight decrease in uterine fibroid. This document has been electronically signed by: Giuliana Gamez MD on 08/14/2024 14:25:05 Dictated By: Giuliana Gamez MD Signed By: <Electronically signed by Giuliana Gamez MD in OV> 08/14/24 1426 DD/ 1425 TD/TT: 08/14/24 1425 Aluminum Container Tester: Assessment & Plan Assessment & Plan (1) Encounter to discuss test results: Code(s): Z71.2 - Person consulting for explanation of examination or test findings (2) Fibroid: Comment: decreased from 6.9 to 6.3cm Code(s): D21.9 - Benign neoplasm of connective and other soft tissue, unspecified Category: Medical Plan: Discussed: Ultrasound Findings: Transabdominal scanning performed with Doppler. Anteverted uterus is 6.9 cm length. Central uterine fibroid measuring 63 mm is present (previously measuring 69 mm). Endometrium is ex. By central uterine fibroid. Plan Counseled re: Leiomyoma: common pelvic neoplasm. Differential diagnosis-may include but not limited to- leiomyosarcoma which is a rare uterine sarcoma 3- 7/100,000, difficult to distinguish from fibroids on ultrasound from uterine sarcoma's. Unlikely any single test will have a highly positive predictive value. Hysterectomy is not recommended for sole purpose of excluding malignant neoplasm. Consult for surgical exploration, medical treatment, other treatments, verses expectant management, pros and cons, risks and benefits. Referral to MD if indicated for level of care if indicated. Report any PMB, pelvic pressure, bloating, or pain. The patient expressed understanding and agreement with the plan of care. All of her questions and concerns were addressed to the best of my ability. This note is constructed using voice recognition software. While every effort has been made to ensure accuracy, physical education department chair errors may have been included. Coding Level of Care Code Est Pt Level 3 (46464) Diagnoses Encounter to discuss test results Z71.2 Fibroid D21.9
--- OUTSIDE RECORDS SUMMARY | 2024-08-28 13:12 | XMS_ITS ---
Author Organization Maxim Loomis III, MD Address [address] [place] [address] Care Team Providers Care Professional Driver Name Role Phone Dontae Nelson MD Primary Care Provider Maxim Paul [phone] Allergies Allergen (clinical drug ingredient) Drug/Non Drug [...] Date Provider Diagnosis Maxim Loomis III, MD [address] [place] [address] [place] [address] 05/09/2023 Maxim Loomis Encounter for screen ing [...] tests Provider Name:Maxim Loomis, 05/13/2025 10:00:00 AM, [address] [place] [address] [address], [place], [address], Progress Notes * Melonie LUCASDOB:1950 (72 yo F)Acc No.[id number]:05/09/2023 Progress Notes Patient:Melonie Klein Provider:?Maxim Loomis MD :1950???Age:72 Y???Sex:Female D ate:05/09/2023 Address:[address] [place] [address], [address], [id number] Pcp:Dontae Nelson MD Subjective: * Chief Complaints: [...] Tobacco Non-User?Aggressive non-smoker ???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 She was born in [place], [place]. * Medications:?TakingTolnaftat e , Notes: As [...] Loomis MD Date:?04/18 Generated for Anupama amaral/Robert/eTransmitting on:?08/28/2024 01:12 PM EDT History and Physical Notes * [...]
--- OUTSIDE RECORDS SUMMARY | 2024-08-28 13:12 | XMS_ITS ---
Author Organization Maxim Loomis III, MD Address [address] [place] [address] Care Team Providers Care Railroad Car Repair Supervisor Name Role Phone Dontae Nelson MD Primary Care Provider Maxim Paul [phone] Allergies Allergen (clinical drug ingredient) Drug/Non Drug [...] Date Provider Diagnosis Maxim Loomis III, MD [address] [place] [address] [address] [place], [place] [address] 08/25/2023 Maxim Loomis Encounter for screen ing [...] OV Provider Name:Maxim Hoganrne, 05/13/2025 10:00:00 AM, [address] [place] [address] [address], [address], [place] [address], Progress Notes * Melonie LUCASDOB:1950 (72 yo F)Acc No.[id number]:08/25/2023 Progress Notes Patient:?Melonie Lucas Provider:?Maxim Loomis MD :1950???Age:72 Y???Sex:Female D ate:08/25/2023 Address:[address] [place] [address], [address], [id number] Pcp:Dontae Nelson MD Subjective: * Chief Complaints: [...] lesions. 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 She was born in [place], [place]. * Medications:?TakingMeclizine HCl 50 MG Tablet [...] * Procedure Codes:? * Follow Up:?As Scheduled (Nakina son: OV) * Images: * Sign off status: Completed true * Provider:?Maxim Loomis MD Date:?08/15 Generated for Anupama amaral/Robert/Markell on:?08/28/2024 01:12 PM EDT History and Physical [...]
--- OUTSIDE RECORDS SUMMARY | 2024-08-28 13:12 | XMS_ITS | Patient Health Record ---
Author Organization Maxim Loomis III, MD Address [address] [place] [address] Care Team Providers Care Hospital Chaplain Name Role Phone Dontae Nelson MD Primary Care Provider Maxim Paul [facility] [phone] Allergies Allergen (clinical drug ingredient) Drug/Non Drug [...] Problem Status W/U Status Risk Notes Problem 121128582 Breast cancer (C50.919) Active confirmed There is no sign of a new primary or recurrence. Is no sign of any other malignancy. There have been no cases of cancer in her family. Since her last visit. Surveillance was continued. Problem 137098740 Encounter for screening mammogram for malignant neoplasm of breast (Z12.31) Active confirmed Her annual mammogram has been ordered. Problem 69771992 HTN (hypertension) (I10) Active confirmed Her blood pressure today is unremarkable. No change in her therapy is needed. Problem 01781776 Other and unspecified hyperlipidemia (E78.5) Active confirmed I recommended that she have periodic determination of her lipid values and maintain a normal weight and consume a diet low in animal fat. I recommended that she have her primary care physician obtain her lipids periodically. Vital Signs Heart Rate 80 /min 05/13/2024 Temperature 97.9 degrees Fahrenheit 05/13/2024 Blood pressure diastolic 77 mm Hg 05/13/2024 Blood pressure systolic 133 mm Hg 05/13/2024 Weight 140 lbs 05/13/2024 BMI 22.59 kg/m2 05/13/2024 Encounters Encounter Location Date Provider Diagnosis Maxim Loomis III, MD [address] [place] [address] [place] [address] 05/13/2024 Maxim Loomis Encounter for screen ing mammogram for malignant neoplasm of breast Z12.31 ; Breast cancer C50.919 ; HTN (hypertension) I10 and Other and unspecified hyperlipidemia E78.5 Assessments Encounter Date Diagnosis (ICD Code) Assessment Notes Treat ment Notes Treatment Clinical Notes 05/13/2024 Breast cancer (ICD-1 0 - C50.919) There is no sign of a new primary or recurrence. Is no sign of any other malignancy. There have been no cases of cancer in her family. Since her last visit. Surveillance was continued. 05/13/2024 Encounter for screening mammogram for malignant neoplasm of breast (ICD-10 - Z12.31) Her annual mammogram has been ordered. 05/13/2024 HTN (hypertension) (ICD-10 - I10) Her [...] Details Provider Name:Maxim Loomis, 05/13/2025 10:00:00 AM, [address] [place] [address] , [place] [address], [facility] [address], Insurance Providers Payer Name Payer Address Payer Phone Subscriber Number Group Number Insured Name Patient Relationship to Insured Coverage Start Date Coverage End Date [facility] [address] Insurance ([employer]) [address] [place] [address] [phone] [id number] Melonie Lucas Self - patient is the insured Medical (General) History Medical History History ICD Code hypertension hyperlipidemia 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
--- OUTSIDE RECORDS SUMMARY | 2024-08-28 13:12 | XMS_ITS ---
Author Organization [facility] Address [address] [place] [address] Care Team Providers Care Supervisor Cemetery Workers Name Role Phone Dontae Nelson MD Primary Care Provider Iva Munson Unavailable [phone] Joni Anderson [phone] REASON FOR VISIT BUY Pedag Viva Sport #39 / L 9 Encounters Encounter Location Date Provider Diagnosis [facility] [address] [place] [address] 09/18/2023 Joni Anderson Plan Of Treatment Next Appt Details Provider Name:Iva mccann, 10/07/2024 09:15:00 AM, [address] [place], [address], Progress Notes * Melonie LUCAS MDOB: 0 (72 yo F)Acc No.[id number]:09/18/2023 Patient:?Melonie Lucas :1950???Age:72 Y???Sex:Female Address:[address] [place] [address] [address], [place], [address] * true * Date:? Generated for Florentini cristin/Robert/eTransmitting on:?08/28/2024 01:12 PM EDT
--- OUTSIDE RECORDS SUMMARY | 2024-08-28 13:12 | XMS_ITS ---
Author [facility] Address [address] [place] [address] Care Team Providers Care Railway Yard Assistant Name Role Phone Dontae Nelson MD Primary Care Provider Iva Munson Unavailable [phone] Allergies Allergen (clinical drug ingredient) Drug/Non Drug [...] Ordered Date Performed Result Body Sit e 24331-PXODEXL NAIL, 6 OR MORE 05/20/2024 N/A Encounters Encounter Location Date Provider Diagnosis [facility] [address] [address] 05/20/2024 Iva Millan Pain in right toe(s) M79.674 ; Onychomycosis B35.1 and Pain in left toe(s) M79.675 Assessments Encounter Date Diagnosis (ICD Code) Assessment Notes Treatment Notes Treatment Clinical Notes Section Notes 05/20/2024 Pain in right toe(s) (ICD-10 - M79.674) 05/20/2024 Onychomycosis (ICD-10 - B35.1) 05/20/2024 Pain in left toe(s) (ICD-10 - M79.675) Plan Of Treatment Pending Test Test Name Order Date 83197-TBTBRQJ NAIL, 6 OR MORE 05/20/2024 Next Appt Details Follow Up: 3 Months, Reason: Provider Name:Iva Jacksonsharri siobhan, 10/07/2024 09:15:00 AM, [address] [place] [address], [address], Procedure Notes * Category Sub-Category Detail Notes [...] use of a nail nipper and/or dremel-type chicle grinder feeder, to a more viable healthy nail plate [...] to maintain effectiveness in symptomatic relief - [address]8705, Pt wishes to continue with the present treatment plan Progress Notes * Melonie LUCAS MDOB: 0 (73 yo F)Acc No.[id number]:05/20/2024 Progress Note Patient:?Melonie LUCAS M Provider:?Iva Millan DPM :1950???Age:73 Y???Sex:Female D ate:05/20/2024 Address:[address] [place], [place] [address] Pcp:Dontae Nelson MD Subjective: * Chief Complaints: [...] 01/07/19Dental surgery 01/23/19 * Hospitalization/Major Diagno stic Procedure:?[facility]-D[facility]C 2011Short stay surgery- [facility] 02/06/13Arthroscopic knee surgery 03/13/17[facility] [place]- [...] use of a nail nipper and/or dremel-type chicle grinder feeder, to a more viable healthy nail plate [...] to maintain effectiveness in symptomatic relief - [address], Pt wishes to continue with the present treatment plan.? * Procedure Codes:?85580 KARUNA WHITE, 6 OR MORE * Follow Up:?3 Months * Images: * Sign off status: Completed true * Provider:?Iva Millan DPM Date:?0 05/20/2024 Generated for Anupama amaral/Robert/Markell on:?08/28/2024 01:12 PM [...]
--- OUTSIDE RECORDS SUMMARY | 2024-08-28 13:12 | XMS_ITS | Clinical Summary ---
Author Organization [facility] Address [address] [place] [address] Phone Care Team Providers Care Strategic Planning Analyst Name Role Phone Anuradha Jacques MD Primary Care Provider [phone] Encounters Date Type Department Care Team Description 07/17/2024 Telephone Gastroenterology - [address] [facility] [address] [place] [address] Yanely Walker MD MISSING INFORMATION [...] AM EST [facility]ointment [facility] at [address] [address] Health Maintenance Due Date Last [...] for biopsy. PQRI CPT II 3342F Code 96836, 01320 PQRI 225 CPT II 7025F TISSUE DENSITY: There are scattered areas of fibroglandular density. (BI-RADS category B) IMPRESSION: Benign. BI-RADS CATEGORY: 2 - BENIGN RECOMMENDATION: Screening bilateral mammogram is recommended in 1 year. Mammo Location: , [facility], [address] [place] [address] -------- FINAL REPORT -------- Dictated By: Chriss Lagos Dictated Date: 03/01/2024 10:07 ET Assigned Physician: Chriss Lagos Reviewed and Electronically Signed By: Chriss Lagos Signed Date: 03/01/2024 10:13 ET Workstation ID: [id number] Transcribed By: Self Edit Transcribed Date: 03/01/2024 [...] and CC projection is performed in the [employer] 2000-D unit. ??Computer aided detection utilizing the [...] Prior studies most recently 02/27/2023 and most qsqypxdv45/19/2017. TECHNIQUE: Full-field digital mammography of the breasts bilaterallyconsisting of tomosynthesis in MLO and CC projection is performed in theSynapticMashographe 2000-D unit. Computer aided detection utilizing the [...] for biopsy. PQRI CPT II 3342F Code 29123, 53006 PQRI 225 CPT II 7025F TISSUE DENSITY: There are scattered areas of fibroglandular density.(BI-RADS category B) IMPRESSION: Benign. BI-RADS CATEGORY: 2 - BENIGN RECOMMENDATION: Screening bilateral mammogram is recommended in 1 year. Mammo Location: , [facility], [address] [place] [address] -------- FINAL REPORT -------- Dictated By: Chriss Lagos Dictated Date: 03/01/2024 10:07 ET Assigned Physician: Chriss Lagos Reviewed and Electronically Signed By: Chriss Lagos Signed Date: 03/01/2024 10:13 ET Workstation ID: [id number] Transcribed By: Self Edit Transcribed Date: 03/01/2024 10:07 ET Dontae Nelson MD IMG BI PROCEDURES Final Result from Last 3 Months or Most Recently Relevant to [place] [address] [facility] Care Teams Strategic Planning Analyst Relationship Specialty Start Date End Date Anuradha Jacques MD [address] [place] [address] , [address] [facility] D[facility] [place], [place] PCP - General Internal Medicine 07/17/24
--- OUTSIDE RECORDS SUMMARY | 2024-08-28 13:13 | XMS_ITS ---
Author Organization [facility] Address [address] [place] [address] Care Team Providers Care Music Agent Name Role Phone Dontae Nelson MD Primary Care Provider UnavailIva Davila Unavailable [phone] Joni Anderson Unavailable [phone] Allergies Allergen (clinical drug ingredient) Drug/Non Drug [...] 01/17/2024 Encounters Encounter Location Date Provider Diagnosis [facility] [place] [address] [place] [address] 01/17/2024 Joni Anderson Pain in left foot [...] Reason: Provider Name:Iva mccann, 10/07/2024 09:15:00 AM, [address] [place] [address], [address], Progress Notes * Melonie LUCAS MDOB: 0 (73 yo F)Acc No.[id number]:01/17/2024 Progress Note Patient:?Melonie Lucas M Provider:?Joni Anderson DPM :1950???Age:73 Y???Sex:Female D ate:01/17/2024 Address:[address] [place], [place] [id number] Pcp:Dontae Nelson MD Subjective: * Chief Complaints: [...] 01/07/19Dental surgery 01/23/19 * Hospitalization/Major Diagno stic Procedure:?[facility] 2011Short stay surgery- [facility] 02/06/13Arthroscopic knee surgery 03/13/17[facility]- fractured left wrist 07/23/21 * Family History:?Mother: [...] DPM Date:? 024 Generated for Anupama amaral/Robert/Markell on:?08/28/2024 01:12 PM [...]
--- OUTSIDE RECORDS SUMMARY | 2024-08-28 13:13 | XMS_ITS ---
Author Organization Maxim Loomis III, MD Address [address] [place] [address] Care Team Providers Care Market Research Assistant Name Role Phone Dontae Nelson MD Primary Care Provider Maxim Paul [phone] Allergies Allergen (clinical drug ingredient) Drug/Non Drug [...] Problem Status W/U Status Risk Notes Problem [id number] Encounter for screening mammogram for malignant neoplasm [...] Provider Diagnosis Maxim Loomis III, MD [address] [place] [address] [place] [address] 05/13/2024 Maxim Loomis Encounter for screen ing [...] Provider Name:Maxim Loomis, 05/13/2025 10:00:00 AM, [address] [place] [address] [address], [place], [address], Progress Notes * Melonie LUCASDOB:1950 (73 yo F)Acc No.[id number]:05/13/2024 Progress Notes Patient:?Melonie LUCAS Provider:?Maxim Loomis MD :1950???Age:73 Y???Sex:Female D ate:05/13/2024 Address:[address] [place] [address], [address] Pcp:Dontae Nelson MD Subjective: * Chief Complaints: [...] Non-User?Aggressive non-smoker ???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 She was born in [place], [place]. * Medications:?TakingClaritin 10 MG Tablet 1 [...] Provider:?Maxim Loomis MD Date:?04/18 Generated for Anupama amaral/Robert/Shashiransmitting on:?08/28/2024 01:13 PM EDT History and Physical Notes * [...]
--- OUTSIDE RECORDS SUMMARY | 2024-08-28 13:13 | XMS_ITS | Patient Health Record ---
Author Organization [facility] Address [address] [facility] [place] [address] Care Team Providers Care Sole Layer Name Role Phone Leslie CRAFT, Dontae Primary Care Provider Iva Munson Unavailable [phone] Joni Anderson Unavailable [phone] Allergies Allergen (clinical drug ingredient) Drug/Non Drug [...] Ordered Date Performed Result Body Sit e 03237-LVBQKVP NAIL, 6 OR MORE 05/20/2024 N/A Encounters Encounter Location Date Provider Diagnosis [facility] [address] 09/18/2023 Joni Anderson Pain in left foot [...] Peroneal tendonitis of right lower leg M76.[address] [facility] [address] [address] 01/17/2024 Joni Anderson Pain in left foot [...] tendonitis of right lower leg M76.[address] [address] 05/20/2024 Iva Millan Pain in right toe(s) M79.674 ; Onychomycosis B35.1 and Pain in left toe(s) M79.[address] [address] 09/18/2023 Joni Anderson Assessments Encounter Date Diagnosis [...] X ray : Foot, right 3V 05/04/2021 89517-ZKZYFHS NAIL, 6 OR MORE 05/20/2024 58429-Fxvu Destruction, -08/28/2015 12640-Ahra Destruction, 04-3010/09/2015 65235-Ljey Destruction, -14 12/18/2015 79306-Fulh Destruction, -14 03/18/2016 52613-Ncqa Destruction, -14 03/15/2011 46935-Pkrn Destruction, 04-3007/12/2011 43044-Ekff Destruction, -14 10/25/2011 35318-Oxzo Destruction, -14 03/06/2012 29568-Dwsl Destruction, -14 09/04/2012 55947-Jnso Destruction, -03/08/2013 22202-Rdxo Destruction, -14 07/12/2013 14140-Jhzi Destruction, 1-14 10/29/2013 76112-Uygrlxtx Plate 02/20/2015 16948- Debride <25 sq cm 05/29/2015 53115- Debride <25 sq cm 08/28/2015 28062- Debride <25 sq cm 12/09/2014 Next Appt Details Provider Name:Iva mccann, 10/07/2024 09:15:00 AM, [address] [place], [address], Insurance Providers Payer Name Payer Address Payer Phone Subscriber Number Group Number Insured Name Patient Relationship to Insured Coverage Start Date Coverage End Date [facility] ([facility] [address] [place] [address] [id number] Melonie Conde Self - patient is the [...] Arthroscopic knee surgery 03/13/17 Short stay surgery- [facility] 02/06/13 [facility]-D[facility]C 2010
== END 2024-08-28 13:19 | disposition home or self-care (01) ==
LOC: HO.HWS 12:55
PROVIDERS: PCP Internal Medicine; Visit Provider Advanced Practice Midwife
DX: Z71.2 Person consulting for explanation of examination or test findings (principal); D21.9 Benign neoplasm of connective and other soft tissue, unspecified
CPT/HCPCS: 99213

== ENCOUNTER 2024-12-05 10:42 | Outpatient (AMB) | payer OTHER, SELFPAY ==
--- OUTSIDE RECORDS SUMMARY | 2024-05-13 06:30 | XMS_ITS ---
Author Organization Maxim Loomis III, MD Address [address] [place] [address] Care Team Providers Care Army Manager Name Role Phone Dontae Nelson MD Primary Care Provider Maxim Paul [phone] Allergies Allergen (clinical drug ingredient) Drug/Non Drug [...] Problem Status W/U Status Risk Notes Problem [id number] Encounter for screening mammogram for malignant neoplasm [...] Date Provider Diagnosis Maxim Loomis III, MD [address] [place] [address] [place] [address] 05/13/2024 Maxim Loomis Encounter for screen ing [...] V Provider Name:Maxim Loomis, 05/13/2025 10:00:00 AM, [address] [place] [address] [address], [place], [address], Progress Notes * Melonie LUCASDOB:1950 (73 yo F)Acc No.[id number]:05/13/2024 Progress Notes Patient: Melonie JOYNER Provider: Solange Loomis MD :1950 A ge:73 Y S ex:Female Date:05/13/2024 Address:[address] [place] [address], [address], 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 She was born in [place], [place]. * Medications: T akingClaritin 10 MG [...] 05/13/2024 Generated for Anupama amaral/Robert/Murphyitting on: 0 12/05/2024 12:12 PM EDT History and Physical Notes * [...]
--- NOTE | 2024-12-05 10:41 | MHC.OFFWIV ---
Intake Vital Signs 12/05/24 10:44 Height 5 ft 5.5 in Weight 139 lb BMI 22.8 BP 140/76 H Blood Pressure Location Lt brachial Position Sitting Respiration 6 L Pulse 95 Pulse Source Pulse Oximeter Temp 98 F Temp Source Oral Pulse Oximetry (%) 97 Oxygen Delivery Method Room Air Intake Visit Reasons: EP Pain on RT side of nose Intake Note: pain (inside) R side of nose x 2 weeks Patient Tobacco Use Status: Never used Tobacco Allergies amoxicillin (AMOXICILLIN) Allergy (Mild, Verified 12/05/24 10:42) DIARRHEA aspirin (Aspirin) Allergy (Mild, Verified 12/05/24 10:42) UPSET STOMACH azithromycin (From Zithromax) Adverse Reaction (Mild, Verified 12/05/24 10:42) DIARRHEA ibuprofen (From ADVIL) Adverse Reaction (Mild, Verified 12/05/24 10:42) GI UPSET oxycodone (From PERCOCET) Adverse Reaction (Mild, Verified 12/05/24 10:42) CAUSES LOOPINESS Do you need a note to return to daycare/school/sports/work: No HPI HPI Comments History of Present Illness Details 73 y/o Female patient who presents to the walk in clinic with c/o right sided Nostril pain and tenderness for 2 weeks. She does suffer from Seasonal allergies and occasionally takes Claritin. She does see an Post Secondary Professional here at [facility]. Denies any injury or trauma to the nose. Denies Nose bleeds. She does have nasal congestion but denies fevers, chills, nausea or vomiting. Denies any recent dental work. [facility] Medical History (Updated 12/05/24 @ 11:15 by Evonne Restrepo NP) Cerumen impaction Allergic rhinitis Fibroid Hydronephrosis Cyst of kidney, acquired Tendinitis involving right hip abductors Hypothyroidism Surgical History History of dental surgery History of cataract surgery History of knee surgery History of renal stent History of hysteroscopy History of lumpectomy of right breast Family History Father Diabetes CVD (cardiovascular disease) Hypertension Heart disease Mother Breast cancer Colon cancer Sister No problems noted. Family/Other Ovarian cancer Social History Housing: House Alcohol intake: current Alcohol intake frequency: holidays/special occasions only Patient Tobacco Use Status: Never used Tobacco Tobacco use type: Cigarette e-Cigarette/Vaping Use: Never Used Second Hand Smoke Exposure: No Advance Directives Date on File: 01/22/20 service: No Current occupational status: retired Cognitive needs: No Hearing needs: No Vision needs: Yes (Glasses) Review of Systems Const All systems reviewed & are unremarkable except as noted in HPI and below Physical Exam Vital Signs: Last Vital Signs Temp 98 F 12/05/24 10:44 Pulse 95 12/05/24 10:44 Resp 6 L 12/05/24 10:44 BP 140/76 H 12/05/24 10:44 Pulse Ox 97 12/05/24 10:44 Oxygen Delivery Method Room Air 12/05/24 10:44 BMI result Body Mass Index 22.8 Const General: no acute distress Nutritional Appearance: well nourished Orientation/consciousness: patient oriented x3 HEENT Head: Yes normocephalic Ears: external ears normal, TM abnormal obstructed by cerumen bilateral and unable to visualize TM bilaterally General nose exam: Normal external nose present, No nasal polyps present, Abnormal mucous membranes and turbinates present boggy bilateral and erythematous bilateral, Nasal discharge present, no epistaxis and Other nasal findings present (No swelling, no bleeding, no infection on nostrils.) Mouth: moist mucous membranes Throat: Yes uvula midline Neuro General: patient oriented x3 Office Procedures Cerumen Removal From which ear canal was the cerumen removed: bilateral Removal: irrigation Notes: patient tolerated procedure well 44155-Asu Irrigation/Lavage Assessment & Plan Assessment & Plan (1) Allergic rhinitis: Code(s): J30.9 - Allergic rhinitis, unspecified Qualifiers: Allergic rhinitis seasonality: seasonal Allergic rhinitis trigger: other Qualified Code(s): J30.89 - Other allergic rhinitis Plan: Advised to take Claritin BID for the next 7-10 days. Advised to call her Post Secondary Professional for an appointment if pain not resolved. Most likely due to Rhinitis, she does have nasal congestion. (2) Cerumen impaction: Code(s): H61.20 - Impacted cerumen, unspecified ear Qualifiers: Laterality: bilateral Qualified Code(s): H61.23 - Impacted cerumen, bilateral Plan: Ordered B/L Ear Lavage in the office. Unable to completely unblock the wax, advised to use Debrox at home. Coding Level of Care Code Est Pt Level 4 (85293) Diagnoses Seasonal allergic rhinitis due to other allergic trigger J30.89 Allergic rhinitis seasonality: seasonal Allergic rhinitis trigger: other Bilateral impacted cerumen H61.23 Laterality: bilateral CPT Codes Office Procedure - CPT: 67215-Skh Irrigation/Lavage ([id number]) Time Spent (min) 20
[2024-12-05 10:44] VITALS: BP 140/76; PULSE 95; RESP 6; TEMP 36.6; O2SAT 97; BMI 22.8
--- OUTSIDE RECORDS SUMMARY | 2024-12-05 12:13 | XMS_ITS | Clinical Summary ---
Author Organization [facility] Address [address] [facility] [address] [place] [address] Phone Care Team Providers Care Designer Name Role Phone Dontae Nelson MD Primary Care Provider [phone] Allergies Active Allergy Reactions Criticality Noted Date Comments Amoxicillin Unknown 12/01/2021 Aspirin GI Upset 01/06/2022 Clindamycin Hcl GI Upset 12/01/2021 Ibuprofen GI Upset 01/06/2022 Azithromycin GI Upset 01/06/2022 Medications amLODIPine (NORVASC) 5 MG tablet Take 5 mg by mouth daily. 11/29/2021 Active atorvastatin (LIPITOR) 40 MG tablet Take 40 mg by mouth daily. 12/09/2021 Active levothyroxine (SYNTHROID, LEVOTHROID) 50 MCG tablet Take 50 mcg by mouth daily. 10/14/2021 Active Active Problems Problem Noted Date Diagnosed Date Acquired hallux valgus of right foot 01/06/2022 Hammertoe of right foot 01/06/2022 Social History Tobacco Use Types Packs/Day Years Used Date Smoking Tobacco: Never Smokeless Tobacco: Never Education Answer Date Recorded Are you interested in more education? Not on adenike e 08/13/2022 Are you concerned about learning? Not on file 08/13/2022 No 08/13/2022 No 08/13/2022 Digital Access Answer Date Recorded No 09/11/2022 No 09/11/2022 No 09/11/2022 Reliable internet access at home? Not on file 09/11/2022 Device with a working camera? Not on file Comments Unknown Sex and Gender Information Value Date Recorded Sex Assigned at Not on file Legal Sex Female 1:45 PM EDT Gender Identity Not on file Sexual Orientation Not on file Last Filed Vital Signs Vital Sign Reading Time Taken Comments Blood Pressure 115/62 07/23/2021 9:47 PM EDT Pulse 101 07/23/2021 9:47 PM EDT Temperature 36.7 C (98.1 F) 07/23/2021 9:47 PM EDT Respiratory Rate 12 07/23/2021 9:47 PM EDT Oxygen Saturation 98% 07/23/2021 9:47 PM EDT Inhaled Oxygen Concentration - - Weight 60.3 kg (133 lb) 01/06/2022 2:06 PM EDT Height 166.4 cm (5' 5.5 ) 01/06/2022 2:06 PM EDT Body Mass Index 21.8 01/06/2022 2:06 PM EDT Plan of Treatment Health Maintenance Due Date Last Done Comments LIPID PANEL 1950 TSH LEVEL 1950 DEPRESSION SCREENING 1961 HEPATITIS C SCREENING 12/21/1967 MAMMOGRAM 1989 COLOGUARD 1994 COLONOSCOPY 1994 COLORECTAL CANCER SCREENING 1994 FIT TEST 1994 FOBT 1994 SIGMOIDOSCOPY 1994 VIRTUAL COLONOSCOPY 1994 ZOSTER VACCINES (1 of 2) 12/21/1999 OSTEOPOROSIS SCREENING INITIAL (ONE-TIME) 2014 PNEUMOCOCCAL VACCINES (50+ years) (2 of 2 - PCV) 03/16/2016 03/16/2015 COVID-19 VACCINE ( season) 2023 07/22/2021, 02/08/2021, 07/15/2020, Additional history exists RSV VACCINE (1 - 1-dose 75+ series) 2024 Adult Td,Tdap Booster 07/23/2025 07/24/2015 SMOKING STATUS SCREENING (Once After 26 Yrs) Completed 01/06/2022 HEPATITIS A VACCINES Aged Out No long er eligible based on patient's age to complete this topic HIB VACCINES Aged Out No longer eligi ble based on patient's age to complete this topic MENINGOCOCCAL VACCINES (ACWY) Aged Out No longer eligible based on patient's age to complete this topic MENINGOCOCCAL VACCINES (B) Aged Out N o longer eligible based on patient's age to complete this topic Medical Devices Not on file Insurance [address] [place] [address] [employer] INDEMNITY [address] [place] [address] [employer] [address] [place] [address] [employer]MN[employer] [address] [place] [address] [employer]MN[employer] [address] [place] [address] [employer] [address] [place] [address] [employer] [address] [place] [address] [employer] [address] [place] [address] [employer] [address] [place] [address] [employer] Care Teams Designer Relationship Specialty Start Date End Date Dontae Nelson MD [address] [place] [address] [place] [address] PCP - General Internal Medicine 07/23/21 Additional Source Comments The information contained in this document represents components of the legal health record. It is not the complete legal health record.[facility]
--- OUTSIDE RECORDS SUMMARY | 2024-12-05 12:13 | XMS_ITS | Clinical Summary ---
Author Organization [facility] Address [address] [place] [address] Phone Care Team Providers Care Agriculture Teacher Name Role Phone Anuradha Jacques MD Primary Care Provider [phone] Allergies Active Allergy Reactions Criticality Noted Date Comments Amoxicillin Unknown 12/01/2021 Other Reaction(s): Aspirin, Clindamycin, Ibuprofen Aspirin GI intolerance 01/06/2022 Azithromycin GI intolerance 01/06/2022 Clindamycin Hcl GI intolerance,Unknown 12/02/19 Medications atorvastatin (LIPITOR) 40 mg tablet Take 1 tablet (40 mg total) by mouth 1 (one) time each day. Active fluticasone propionate (FLONASE) 50 mcg/actuation nasal spray PRN, 0 Refills, Maintenance, 12/01/23 15:28:00 EDT, Partial fill upon patient request if the prescription is for a schedule II opioid drug. 4 Active amLODIPine (NORVASC) 5 mg tablet Take 1 tablet (5 mg total) by mouth daily. 2 Active levothyroxine (SYNTHROID, LEVOTHROID) 50 mcg tablet 1 (one) time each day at the same time. 1 Active loratadine (CLARITIN REDITABS) 10 mg dispersible tablet Take by mouth. 4 Active Active Problems Problem Noted Date Diagnosed Date HTN (hypertension) 10/22/2024 HLD (hyperlipidemia) 10/22/2024 Hypothyroidism 10/05/2022 Acquired hallux valgus of right foot 01/06/2022 Hammertoe of right foot 01/06/2022 Encounters Date Type Department Care Team Description 10/22/2024 3:30 PM EDT Office Visit Gastroenterology - [address] [facility] [address] [facility] [address] [place] [phone] Halima Jerez PA Colon cancer screening (Primary Dx); Irritable bowel syndrome with constipation 10/22/2024 Telephone Gastroenterology - [address] [facility] [address] [facility] [address] [place] [phone] Yanely Walker MD from Last 3 Months Surgical History Surgery Date Site/Laterality Comments STEREOTACTIC CORE BIOPSY 01/10/2008 Right BREAST LUMPECTOMY Right COLONOSCOPY 12/19/2019 5-yr recall COLONOSCOPY 06/12/2015 COLONOSCOPY 01/16/2012 TA x 1 COLONOSCOPY 10/23/2006 Medical History Medical History Date Comments BRCA1 gene mutation negative Ductal carcinoma in situ of breast Breast cancer ([facility] V24, [facility] V28) Family History Medical History Relation Name Comments Breast cancer Mother Colon cancer Mother Relation Name Status Comments Mother Social History Tobacco Use Types Packs/Day Years Used Date Smoking Tobacco: Never Smokeless Tobacco: Never Tobacco Cessation:Counseling Given: Not Answered Alcohol Use Standard Drinks/Week Comments Yes 0 (1 standard drink = 0.6 oz pur e alcohol) wine socially Comments No Sex and Gender Information Value [...] - Inhaled Oxygen Concentration - - Weight 62.6 kg (138 lb) 10/22/2024 3:09 PM EDT Height 167.6 cm (5' 6 ) 10/22/2024 3:09 PM EDT Body Mass Index 22.27 10/22/2024 3:09 PM EDT Plan of Treatment Upcoming Encounters Date Type Department Care Team (Late st Contact Info) Description 02/13/2025 12:30 PM EDT Appointment [facility] [address] [place] [phone] Yanely Walker MD [address] [address] 03/03/2025 9:30 AM EST Appointment [facility] [address] [place] [address] Health Maintenance Due Date Last Done Comments Cholesterol Screening (Lipid Panel) 03/20/2022 Colorectal Cancer Screening: Colonoscopy 03/20/2022 Falls Risk Assessment 03/20/2022 Hepatitis C Screening 03/20/2022 Osteoporosis Screening (Bone Density Screening) 03/20/2022 Social Influencers of Health Screening 03/20/2022 Depression Screening 04/17/2024 COVID-19 Vaccine (8 - Moderna risk season) 2024 01/23/2024, 01/12/2023, 02/14/2022, Additional history exists Hypertension/CHF/CAD Annual BMP Blood Test 10/23/2024 Influenza Vaccine (#1) 2024 , 01/16/2024, 01/19/2023, Additional history exists RSV Immunization Adult Patients (1 - 1-dose 75+ series) 2024 DTaP,Tdap,and Td Vaccines (2 - Td or Tdap) 07/23/2025 07/24/2015 Breast Cancer Screening 03/01/2026 03/01/20 24, 02/27/2023, 02/23/2022, Additional history exists Zoster Vaccines Completed 02/09/2022, 12/08/2021 Pneumococcal Vaccine: 50+ Years Completed 04/07/2022, 03/16/2015 HIB Vaccines Aged Out No longer eligi [...] Diagnosis Comments MG MAMMO DIGITAL SCREENING W ESTER BILAT Routine 03/01/2024 10:03 AM EST Encounter for screening mammogram for breast cancer from Last 3 Months or Most Recently Relevant to Health Maintenance Results * MG Mammo Digital Screening w Ester bilat (03/01/2024 10:03 AM EST) Anatomical Region Laterality Modality Breast Bilateral Mammography 03/01/2024 10:0 7 AM EST Impressions 03/01/2024 10:13 AM EST No mammographic evidence of malignancy. A negative mammogram in the presence of a clinically suspicious palpable abnormality does not preclude the possibility of malignancy or alter the indications for biopsy. PQRI CPT II 3342F Code 82828, 94051 PQRI 225 CPT II 7025F TISSUE DENSITY: There are scattered areas of fibroglandular density. (BI-RADS category B) IMPRESSION: Benign. BI-RADS CATEGORY: 2 - BENIGN RECOMMENDATION: Screening bilateral mammogram is recommended in 1 year. Mammo Location: [facility], [address] [place] [address] -------- FINAL REPORT -------- Dictated By: Chriss Lagos Dictated Date: 03/01/2024 10:07 ET Assigned Physician: Chriss Lagos Reviewed and Electronically Signed By: Chriss Lagos Signed Date: 03/01/2024 10:13 ET Workstation ID: [id number] Transcribed By: Self Edit Transcribed Date: 03/01/2024 10:07 ET Narrative 03/01/2024 10:13 AM EST CLINICAL: The patient is a 73 years Female presenting for routine screening mammography. The patient has a personal history of right breast cancer treated with lumpectomy and radiation in 2007. The patient also has a family history of breast cancer involving her mother at age 80. COMPARISON: Prior studies most recently 02/27/2023 and most remotely 02/02/2017. TECHNIQUE: Full-field digital mammography of the breasts bilaterally consisting of tomosynthesis in MLO and CC projection is performed in the [employer] 2000-D unit. Computer aided detection utilizing the iCAD system was utilized. FINDINGS: The breasts are again seen to be composed of examination of fatty and fibroglandular elements. Architectural distortion posteriorly in the upper inner quadrant of the right breast, representing the lumpectomy scar, is unchanged. Surgical clips are again seen in the right axilla. Bilateral benign calcifications, including a group of coarse calcifications inferiorly in the right breast likely representing a calcified fibroadenoma, are unchanged in appearance. There is no suspicious cluster of microcalcifications, mass, [...] Prior studies most recently 02/27/2023 and most vzjsiuhv04/19/2017. TECHNIQUE: Full-field digital mammography of the breasts bilaterallyconsisting of tomosynthesis in MLO and CC projection is performed in the[employer] 2000-D unit. Computer aided detection utilizing the [...] for biopsy. PQRI CPT II 3342F Code 73804, 83784 PQRI 225 CPT II 7025F TISSUE DENSITY: There are scattered areas of fibroglandular density.(BI-RADS category B) IMPRESSION: Benign. BI-RADS CATEGORY: 2 - BENIGN RECOMMENDATION: Screening bilateral mammogram is recommended in 1 year. Mammo Location: [facility], [address] [place] [address] -------- FINAL REPORT -------- Dictated By: Chriss Lagos Dictated Date: 03/01/2024 10:07 ET Assigned Physician: Chriss Lagos Reviewed and Electronically Signed By: Chriss Lagos Signed Date: 03/01/2024 10:13 ET Workstation ID: [id number] Transcribed By: Self Edit Transcribed Date: 03/01/2024 10:07 ET Dontae Nelson MD IMG BI PROCEDURES Final Result from Last 3 Months or Most Recently Relevant to Health Maintenance Insurance [place] [id number] [place] [id number] Care Teams Agriculture Teacher Relationship Specialty Start Date End Date Anuradha Jacques MD [address] [place] [address] , [address] [facility] WILLIAM Amor PCP - General Internal Medicine 07/17/24
--- OUTSIDE RECORDS SUMMARY | 2024-12-05 12:13 | XMS_ITS | Patient Health Record ---
Author Organization [facility] Address [address] [facility] [place] [address] Care Team Providers Care Buffet Runner Name Role Phone Iva Millan Unavailable [phone] Justin Joni Unavailable [phone] Allergies Allergen (clinical drug ingredient) Drug/Non Drug [...] Duration) Notes Start Date End Date Status Lipitor 40 mg once a day Not-T aking CeleBREX 200 MG 1 capsule with food Orally Once a day; Duration: 5 days Not-Taking Vitamin D Winter Not-Taking Lisinopril 5 mg once a day Not -Taking Levothyroxine Sodium 50 MCG 1 tablet in the morning on an empty stomach Orally Once a day; Duration: 30 day(s) Active Fish Oil Active Multivitamin Active Meclizine HCl PRN For Vertigo Active amLODIPine Besylate 5 MG 1 tablet Orally Once a day; Duration: 30 day(s) Active Arimidex 1 mg once a day Not-T aking Atorvastatin Calcium 40 MG 1 tablet Orally Once a day; Duration: 30 day(s) Active Flonase PRN Active Calcium + D 600 mg twice daily Active Voltaren 1 % as directed Externally Active Immunizations Vaccine Route Administration Date Status Comme nts COVID-19 Moderna Vaccine Unknown 02/08/2021 Administere d 06/17/20, 07/15/20 Influenza Unknown 08/14/2024 Administered Social History Tobacco Use: Social History Observation [...] Interpretation Negative Vital Signs Blood pressure diastolic 70 mm Hg 10/07/2024 Height 5ft 5in in 10/07/2024 Blood pressure systolic 126 mm Hg 10/07/2024 Weight 135 lbs 10/07/2024 BMI 22.46 kg/m2 10/07/2024 Procedures Procedure Date Ordered Date Performed Result Body Sit e 23438-JLMWAGS NAIL, 6 OR MORE 05/20/2024 N/A 50238-ISYYHFP NAIL, OR MORE 10/07/2024 N/A Encounters Encounter Location Date Provider Diagnosis [address] [address] 01/17/2024 Ojni Anderson Pain in left foot M79.672 ; [...] Peroneal tendonitis of right lower leg M76.[address] [address] 05/20/2024 Iva Millan Pain in right toe(s) M79.674 ; Onychomycosis B35.1 and Pain in left toe(s) M79.[address] [address] 10/07/2024 Iva Millan Pain in right toe(s) M79.674 ; Onychomycosis B35.1 and Pain in left toe(s) M79.675 Assessments Encounter Date Diagnosis (ICD Code) Assessment Notes Treatment Notes Treatment Clinical Notes Section Notes 01/17/2024 Pain in left foot (ICD-10 - M79.672) 05/20/2024 Pain in right toe(s) (ICD-10 - M79.674) 10/07/2024 Pain in right toe(s) (ICD-10 - M79.674) 10/07/2024 Onychomycosis (ICD-10 - B35.1) 05/20/2024 Onychomycosis (ICD-10 - B35.1) 01/17/2024 Pain in right foot (ICD-10 - M79.671) 01/17/2024 Hallux valgus (acquired), left foot (ICD-10 - M20.12) 10/07/2024 Pain in left toe(s) (ICD-10 - M79.675) 05/20/2024 Pain in left toe(s) (ICD-10 - M79.675) 01/17/2024 Hallux valgus (acquired), right foot (ICD-10 [...] X ray : Foot, right 3V 05/04/2021 93390-RXLEJKN NAIL, 6 OR MORE 05/20/2024 15892-WJPVDIX NAIL, 6 OR MORE 10/07/2024 71091-Gelu Destruction, -08/28/2015 81550-Vjyu Destruction, 04-3010/09/2015 20086-Vvrr Destruction, 04-3012/18/2015 94087-Okpb Destruction, 04-3003/18/2016 98290-Aoqs Destruction, 04-3003/15/2011 95214-Bwvr Destruction, 04-3007/12/2011 98960-Qazq Destruction, 04-3010/25/2011 66637-Qklq Destruction, 04-3003/06/2012 66212-Tcyj Destruction, 04-3009/04/2012 25315-Uvmm Destruction, 04-3003/08/2013 03654-Zybs Destruction, 04-3007/12/2013 00802-Ldme Destruction, 04-3010/29/2013 51245-Bjddgagn Plate 02/20/2015 90632- Debride <25 sq cm 05/29/2015 24304- Debride <25 sq cm 08/28/2015 74972- Debride <25 sq cm 12/09/2014 Next Appt Details Provider Name:Iva Holloway siobhan, 02/05/2025 10:00:00 AM, [address] [place], [address], Insurance Providers Payer Name Payer Address Payer Phone Subscriber Number Group Number Insured Name Patient Relationship to Insured Coverage Start Date Coverage End Date [facility]) [address] [place] [id number] Melonie Conde Self - patient is the insured 5 Medical (General) History Medical History History ICD Code measles hypertension chicken pox Pneumonia Ingrowing nail Ingrowing nail Vertigo Surgical History Surgery Date(Month/Year) lumpectomy 2007 hysteroscopy arthroscopic knee surgery oral surgery Infected molar 10/16/18 cataract surgery bilateral eyes 12/24/18, 01/07/19 Dental surgery 01/23/19 Hospitalization History Reason Date(Month/Year) [facility] [place]- fractured left wrist Arthroscopic knee surgery 03/13/17 Short stay surgery- [facility] 02/06/13 [facility]tr-D&C 2010
== END 2024-12-05 12:15 | disposition home or self-care (01) ==
PROVIDERS: PCP Internal Medicine; Visit Provider Nurse Practitioner Family
DX: J30.89 Other allergic rhinitis (principal); H61.23 Impacted cerumen, bilateral

== ENCOUNTER → 2024-12-05 10:42 | Outpatient (BNVA) | payer OTHER, SELFPAY | PROVIDERS: PCP Internal Medicine; Visit Provider Nurse Practitioner Family | DX: H61.23 Impacted cerumen, bilateral (principal); J30.89 Other allergic rhinitis | CPT/HCPCS: 69209 ==

== ENCOUNTER 2024-12-13 07:40 | Outpatient (REF) | payer OTHER, SELFPAY ==
--- OUTSIDE RECORDS SUMMARY | 2023-08-25 12:00 | XMS_ITS ---
Author Organization Maxim Loomis III, MD Address [address] [place] [address] Care Team Providers Care Ecommerce Project Manager Name Role Phone Dontae Nelson MD Primary Care Provider Maxim Paul [phone] Allergies Allergen (clinical drug ingredient) Drug/Non Drug Allergy documented on EMR Reaction Allergy Type Onset Date Status ibuprofen Ibuprofen stomach upset Drug Allergy Act tomeka Zithromax diarrhea Drug Allergy Active clindamycin Clindamycin HCl anaphylaxis Drug Allergy Active aspirin Aspirin stomach upset Drug Allergy Act tomeka amoxicillin Amoxicillin diarrhea Drug Allergy Act tomeka REASON FOR VISIT Skin lesions right axilla, History of breast cancer, Hypertension, Hyperlipidemia Medications Medication SIG (Take, Route, Frequency, Duration) Notes Start Date End Date Status Tolnaftate As needed Active Claritin As needed Active Levothyroxine Sodium 50 MCG 1 tablet in the morning on an empty stomach Orally Once a day Active Atorvastatin Calcium 40 MG 1 tablet Oral ly Once a day Active Fluticasone Propionate As needed Active amLODIPine Besylate 5 MG 1 tablet Orally Once a day Active Meclizine HCl 50 MG 1 tablet as needed Orally Three times a day 05/09/2023 Active Social History Tobacco Use: Social History Observation Description Date Details (start date - stop date) Never Smoker NA - NA Tobacco Use/Smoking Question Answer Notes Patient is a nonsmoker Additional Findings: Tobacco Non-User Aggressive non-smoker Vital Signs Temperature 98.1 degrees Fahrenheit 08/25/19 24 Blood pressure systolic 138 mm Hg 08/25/19 24 Blood pressure diastolic 76 mm Hg 024 Heart Rate 83 /min 08/25/2023 Height 5 ft 6 in in 08/25/2023 Weight 139 lbs 08/25/2023 BMI 22.43 kg/m2 08/25/2023 Encounters Encounter Location Date Provider Diagnosis Maxim Loomis III, MD [address] [place] [address] [place] [address] 08/25/2023 Maxim Loomis Encounter for screen ing mammogram for malignant neoplasm of breast Z12.31 ; Dermatitis, unspecified L30.9 ; HTN (hypertension) I10 ; Breast cancer C50.919 and Other and unspecified hyperlipidemia E78.5 Assessments Encounter Date Diagnosis (ICD Code) Assessment Notes Treat ment Notes Treatment Clinical Notes 08/25/2023 Encounter for screening mammogram for malignant neoplasm of breast (ICD-10 - Z12.31) Her annual mammogram has been ordered. 08/25/2023 Dermatitis, unspecified (ICD-10 - L30.9) She says she is resolving since she call for the appointment. At worst it will be a small area of fungal dermatitis. Will be observed at this time. 08/25/2023 HTN (hypertension) (ICD-10 - I10) Her blood pressure today is unremarkable. No change in her therapy is needed. 08/25/2023 Breast cancer (ICD-1 0 - C50.919) There is no sign of a new primary or recurrence. Is no sign of any other malignancy. There have been no cases of cancer in her family. Since her last visit. Surveillance was continued. 08/25/2023 Other and unspecifie d hyperlipidemia (ICD-10 - E78.5) I recommended that she have periodic determination of her lipid values and maintain a normal weight and consume a diet low in animal fat. I recommended that she have her primary care physician obtain her lipids periodically. Plan Of Treatment Medication Medication Name Sig Start Date Stop Date Notes Tolnaftate As needed Claritin As needed Levothyroxine Sodium 50 MCG 1 tablet in the morning on an empty stomach Orally Once a day Atorvastatin Calcium 40 MG 1 tablet Orally Once a day Fluticasone Propionate As needed amLODIPine Besylate 5 MG 1 tablet Orally Once a day Meclizine HCl 50 MG 1 tablet as needed O rally Three times a day 05/09/2023 Next Appt Details Follow Up: As Scheduled, [place] son: OV Provider Name:Maxim Loomis, 05/13/2025 10:00:00 AM, [address] [place] [address] [address], [address], [place], [address], Progress Notes * Melonie LUCASDOB:1950 (72 yo F)Acc No.[id number]:08/25/2023 Progress Notes Patient: Melonie Leahy Provider: Solange Loomis MD :1950 A ge:72 Y S ex:Female Date:08/25/2023 Address:[address] [place] [address], [address], [id number] Pcp:Dontae Nelson MD Subjective: * Chief Complaints: * S kin lesions right axillaHistory of breast cancerHypertensionHyperlipidemia * HPI: C OVID-19 Screening: She returns having noticed several red skin lesions in the right axilla. She has a history of carcinoma of the right breast treated with lumpectomy and radiation. She has felt no mass in either breast. She has no other skin lesions. She recently saw Makenzie Vega, her APPLIANCE ASSEMBLER nurse practitioner, and was told she was healthy and well. On examination there were 4 small red areas in the axilla which appeared to be nonspecific dermatitis, not telangiectasia. The patient states that they're beginning to fade. She will call me if they worsen and I will try medication. At present she will be observed. Questions H ave you experienced fever, chills, cough, sore throat, shortness of breath, difficulty breathing, muscle aches, loss of taste or smell? N o H ave you been exposed to the virus within the last 10 days? N o H ave you travelled internationally in the last 10 days? N o H ave you been exposed to COVID-19 in the past? N o * ROS: G eneral/Constitutional: pain o nly normal aches and pains. C hills d enies.?Fatigue a dmits. F ever d enies. E NT: Decreased hearing d enies. R espiratory: Cough d enies. C ardiovascular: Chest pain with exertion d enies. D yspnea on exertion?denies. S hortness of breath d enies. G astrointestinal: Constipation o ccasional. D ecreased appetite d enies. D iarrhea d enies. H eartburn d enies. N ausea d enies. R ectal bleeding d enies. V omiting d enies. H ematology: bruising d enies. p etechiae d enies. S wollen glands n one have been noted. G enitourinary: Frequent urination d enies. M usculoskeletal: Muscle aches d enies. P ainful joints d enies. S ciatica d enies. W eakness d enies. S kin: Itching d enies. R daphney d enies. S kin lesion(s)?Several small 1-2 mm areas of erythema right axilla. N eurologic: Difficulty speaking d enies. D izziness d enies.?Headache d enies. L ow back pain d enies. P sychiatric: Depressed mood d enies. * Medical History: * Surgical History: r ight breast lumpectomy and right axillary sentinel lymph node biobsy 01/2008stent right ureter, removed bilateral cataract surgery dental implant surgery Meniscus repair, Left knee * Hospitalization/Major Diagno stic Procedure: D enies Past Hospitalization * Family History: F ather: 61 yrs, coronary artery disease, adult onset diabetes mellitus, diagnosed with DM. M other: alive 89 yrs, breast cancer at age 80, colon cancer, skin cancer, diagnosed with Cancer. P aternal aunt: , adult onset diabetes mellitus. 1 brother(s) , 2 sister(s) . . Her mother had 10 siblings , one of whom had gastric cancer. No other cases of breast or ovarian cancer are known in this family. 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 She was born in [place], [place]. * Medications: T akingMeclizine HCl 50 MG Tablet 1 tablet as needed Orally Three times a dayTolnaftate , Notes: As neededClaritin , Notes: As neededFluticasone Propionate , Notes: As neededLevothyroxine Sodium 50 MCG Tablet 1 tablet in the morning on an empty stomach Orally Once a dayAtorvastatin Calcium 40 MG Tablet 1 tablet Orally Once a dayamLODIPine Besylate 5 MG Tablet 1 tablet Orally Once a dayMedication List reviewed and reconciled with the patientTaking Meclizine HCl 50 MG Tablet 1 tablet as needed Orally Three times a dayTaking Tolnaftate , Notes: As neededTaking Claritin , Notes: As neededTaking Fluticasone Propionate , Notes: As neededTaking Levothyroxine Sodium 50 MCG Tablet 1 tablet in the morning on an empty stomach Orally Once a dayTaking Atorvastatin Calcium 40 MG Tablet 1 tablet Orally Once a dayTaking amLODIPine Besylate 5 MG Tablet 1 tablet Orally Once a dayMedication List reviewed and reconciled with the patient * Allergies: Z ithromax: diarrheaAspirin: stomach upsetAmoxicillin: diarrheaClindamycin HCl: anaphylaxisIbuprofen: stomach upsetno[Allergies Verified] Objective: * Vitals: H t: 5 ft 6 in, Wt:139, BMI:22.43, BP:138/76, HR:83, Temp:98.1, Ht-cm: 167.64, Wt- k.05. * Examination: G eneral Examination: GENERAL APPEARANCE: p leasant, well nourished, well developed, in no acute distress, calm and relaxed , woman. HEAD: a traumatic, normocephalic. EYES: e candelario, perrla, anicteric, conjugate. EARS: n ormal. NOSE: s eptum intact. ORAL CAVITY: n ormal, unremarkable. NECK/THYROID: n o jugular venous distention, no carotid bruit, thyroid normal. LYMPH NODES: n o enlarged lymph nodes,spleen normal. SKIN: n o suspicious lesions, anicteric, 4 small nonspecific areas of erythema, macular papular, not raised, without blistering right axilla. HEART: n o clicks, gallops, murmurs, or rubs, regular rhythm, S1, S2 normal, no s3, or vascular bruits. LUNGS: c lear to auscultation . BREASTS: R ight breast unremarkable rigght axilla no lesion or adenopathy, radiation tattoos, lumpectomy scar and axillary scar well-healed, left breast unremarkable. ABDOMEN: b owel sounds normal, no ascites, no organomegaly, no mass. RECTAL EXAM: n ot examined. MUSCULOSKELETAL: e xtremities unremarkable, no clubbing, cyanosis or edema. PERIPHERAL PULSES: n ormal. NEUROLOGIC: a lert and oriented, cranial nerves 2-12 grossly intact, deep tendon reflexes 2+ symmetrical, motor strength normal upper and lower extremities, sensory exam intact. PSYCH: a lert, oriented , cognitive function intact , cooperative with exam , good eye contact , judgement and insight good , mood/affect full range , speech clear , thought process logical, goal directed. Assessment: * Assessment: 1. E ncounter for screening mammogram for malignant neoplasm of breast - Z12.31, Her annual mammogram has been ordered. 2 . D ermatitis, unspecified - L30.9, She says she is resolving since she call for the appointment. At worst it will be a small area of fungal dermatitis. Will be observed at this time. 3 . H TN (hypertension) - I10, Her blood pressure today is unremarkable. No change in her therapy is needed. 4 . B reast cancer - C50.919, There is no sign of a new primary or recurrence. Is no sign of any other malignancy. There have been no cases of cancer in her family. Since her last visit. Surveillance was continued. 5 . O ther and unspecified hyperlipidemia - E78.5, I recommended that she have periodic determination of her lipid values and maintain a normal weight and consume a diet low in animal fat. I recommended that she have her primary care physician obtain her lipids periodically. Plan: * Treatment: 2. O thers Continue Meclizine HCl Tablet, 50 MG, 1 tablet as needed, Orally, Three times a day. * Procedure Codes: * Follow Up: A s Scheduled (Reason: OV) * Images: * Sign off status: Completed true * Provider: Solange Loomis MD Date: 0 08/25/2023 Generated for Anupama amaral/Robert/Murphyitting on: 0 12/13/2024 07:43 AM EDT History and Physical Notes * HPI (History of Present Illness) Category Sub-Category Detail Notes COVID-19 Screening Questions Have you had any new onset fever, chills, cough, congestion, sore throat, shortness of breath, muscle aches?: No Have you been exposed to the virus withi n the last 10 days?: No Have you travelled internationally in [facility] last 10 days?: No Have you been exposed to COVID-19 in the past?: No Examination Category Sub-Category Detail Notes General Examination GENERAL APPEARANCE: pleasant , well nourished, well developed, in no acute distress, calm and relaxed , woman HEAD: atraumatic, normocep halic EYES: eomi, perrla, anicte quinn, conjugate EARS: normal NOSE: septum intact NECK/THYROID: no jugular venous di stention, no carotid bruit, thyroid normal HEART: no clicks, gallops, murmurs, or rubs, regular rhythm, S1, S2 normal, no s3, or vascular bruits LUNGS: clear to auscultatio n ABDOMEN: bowel sounds normal, no ascites, no organomegaly, no mass NEUROLOGIC: alert and oriented, cranial nerves 2-12 grossly intact, deep tendon reflexes 2+ symmetrical, motor strength normal upper and lower extremities, sensory exam intact SKIN: no suspicious lesion s, anicteric, 4 small nonspecific areas of erythema, macular papular, not raised, without blistering right axilla PERIPHERAL PULSES: normal BREASTS: Right breast unremar kable rigght axilla no lesion or adenopathy, radiation tattoos, lumpectomy scar and axillary scar well-healed, left breast unremarkable MUSCULOSKELETAL: extremities unremark able, no clubbing, cyanosis or edema LYMPH NODES: no enlarged lymph no amanda,spleen normal RECTAL EXAM: not examined PSYCH: alert, oriented , co gnitive function intact , cooperative with exam , good eye contact , judgement and insight good , mood/affect full range , speech clear , thought process logical, goal directed ORAL CAVITY: normal, unremarkable
--- OUTSIDE RECORDS SUMMARY | 2024-05-13 06:30 | XMS_ITS ---
Author Organization Maxim Loomis III, MD Address [address] [place] [address] Care Team Providers Care Eap Consultant Name Role Phone Dontae Nelson MD Primary Care Provider Maxim Paul [phone] Allergies Allergen (clinical drug ingredient) Drug/Non Drug [...] Problem Status W/U Status Risk Notes Problem [id number] Encounter for screening mammogram for malignant neoplasm [...] Date Provider Diagnosis Maxim Loomis III, MD [address] [place] [address] [place] [address] 05/13/2024 Maxim Loomis Encounter for screen ing [...] V Provider Name:Maxim Loomis, 05/13/2025 10:00:00 AM, [address] [place] [address] [address], [place], [address], Progress Notes * Melonie LUCASDOB:1950 (73 yo F)Acc No.[id number]:05/13/2024 Progress Notes Patient: Melonie JOYNER Provider: Solange Loomis MD :1950 A ge:73 Y S ex:Female Date:05/13/2024 Address:[address] [place] [address], [address], [id number] Pcp:Dontae Nelson MD Subjective: * Chief Complaints: [...] ggressive non-smoker 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 She was born in [place], [place]. * Medications: T akingClaritin 10 MG [...] 05/13/2024 Generated for Anupama amaral/Robert/Murphyitting on: 0 12/13/2024 07:42 AM EDT History and Physical Notes * [...]
--- OUTSIDE RECORDS SUMMARY | 2024-12-13 07:43 | XMS_ITS | Patient Health Record ---
Author Organization Maxim Loomis III, MD Address [address] [place] [address] Care Team Providers Care Intake Rn Name Role Phone Dontae Nelson MD Primary Care Provider Maxim [facility] [phone] Allergies Allergen (clinical drug ingredient) Drug/Non Drug [...] Problem Status W/U Status Risk Notes Problem 245549672 Breast cancer (C50.919) Active confirmed There is no sign of a new primary or recurrence. Is no sign of any other malignancy. There have been no cases of cancer in her family. Since her last visit. Surveillance was continued. Problem [id number] Encounter for screening mammogram for malignant neoplasm of breast (Z12.31) Active confirmed Her annual mammogram has been ordered. Problem 47407835 HTN (hypertension) (I10) Active confirmed Her blood pressure today is unremarkable. No change in her therapy is needed. Problem 32929557 Other and unspecified hyperlipidemia (E78.5) Active confirmed [...] Date Provider Diagnosis Maxim Loomis III, MD [address] [place] [address] [place] [address] 05/13/2024 Maxim Loomis Encounter for screen ing [...] Details Provider Name:Maxim Loomis, 05/13/2025 10:00:00 AM, [address] [place] [address] , [address], [place], [address], Insurance Providers Payer Name Payer Address Payer Phone Subscriber Number Group Number Insured Name Patient Relationship to Insured Coverage Start Date Coverage End Date [facility] ([employer]) [address] [place] [id number] [phone] [id number] Melonie Lucas Self - patient is the insured Medical (General) History Medical History History ICD Code hypertension hyperlipidemia 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
--- OUTSIDE RECORDS SUMMARY | 2024-12-13 07:43 | XMS_ITS | Encounter Summary ---
Author Organization [facility] Address [address] [facility] [address] [place] [address] Phone Care Team Providers Care Promotions Representative Name Role Phone Dontae Nelson MD Primary Care Provider [phone] Encounter Details Date Type Department Care Team (Late st Contact Info) Description 07/23/2021 Procedure Pass [facility], Ct Scan - [facility] [address] [place] [address] Social History Tobacco Use Types Packs/Day Years Used Date Smoking Tobacco: Never Assessed Comments Unknown Sex and Gender Information Value Date Recorded Sex Assigned at Not on file Legal Sex Female 1:45 PM EDT Gender Identity Not on file Sexual Orientation Not on file documented as of this encounter Functional Status * Calculated C-SSRS Risk Score (Lifetime/Recent) Answer Date of Assessment Author No Risk Indicated 07/23/2021 1:58 PM EDT Linh Hadley RN * [place] Suicide Severity Rating Scale (Screener/Recent Self-Report) Question Answer Date of Assessment Author 1. Wish to be (Past 1 Month) No 022 1:58 PM EDT Linh Gaona, NASRIN 2. Non-Specific Active Suici sheri Thoughts (Past 1 Month) No 07/23/2021 1:58 PM EDT Zeb Gaona RN 6. Suicidal Behavior (Lifetime) No 1:58 PM EDT Linh Gaona, NASRIN documented as of this encounter Plan of Treatment Not on file documented as of this encounter Visit Diagnoses Not on filedocumented in this encounter Care Teams Promotions Representative Relationship Specialty Start Date End Date Dontae Nelson MD [address] [place] [address] [place] [address] PCP - General Internal Medicine 07/23/21 documented as of this encounter Additional Source Comments The information contained in this document represents components of the legal health record. It is not the complete legal health record.[facility]
--- OUTSIDE RECORDS SUMMARY | 2024-12-13 07:43 | XMS_ITS | Encounter Summary ---
Author Organization [facility] Address [address] [facility] [address] [place] [address] Phone Care Team Providers Care Paper Box Cutter Name Role Phone Dontae Nelson MD Primary Care Provider [phone] Encounter Details Date Type Department Care Team (Late st Contact Info) Description 07/23/2021 Procedure Pass [facility], Ct Scan - [facility] [address] [place] [address] Social History Tobacco Use Types Packs/Day Years [...] 1:58 PM EDT Linh Hadley RN * [place] Suicide Severity Rating Scale (Screener/Recent Self-Report) Question [...] on filedocumented in this encounter Care Teams Paper Box Cutter Relationship Specialty Start Date End Date Dontae Nelson MD [address] [place] [address] [place] [address] PCP - General Internal Medicine 07/23/21 documented as of this encounter Additional Source Comments The information contained in this document represents components of the legal health record. It is not the complete legal health record.[facility]
--- OUTSIDE RECORDS SUMMARY | 2024-12-13 07:43 | XMS_ITS | Clinical Summary ---
Author Organization [facility] Address [address] [facility] [address] [place] [address] Phone Care Team Providers Care Assembly Operator Name Role Phone Dontae Nelson MD Primary Care Provider [phone] Allergies Active Allergy Reactions Criticality Noted Date [...] Devices Not on file Insurance [address] [place] [address] E-Sign [employer] [address] [place] [address] E-Sign [employer] [address] [place] [address] E-Sign [employer] [address] [place] [address] E-Sign [employer] [address] [place] [address] E-Sign [employer] [address] [place] [address] E-Sign [employer] [address] [place] [address] E-Sign [employer] [address] [facility] [place] [address] E-Sign [employer] [address] [place] [address] E-Sign [employer] Care Teams Assembly Operator Relationship Specialty Start Date End Date Dontae Nelson MD [address] [place] [address] [place] [address] PCP - General Internal Medicine 07/23/21 Additional Source Comments The information contained in this document represents components of the legal health record. It is not the complete legal health record.[facility]
--- OUTSIDE RECORDS SUMMARY | 2024-12-13 07:43 | XMS_ITS | Clinical Summary ---
Author Organization [facility] Address [address] [place] [address] Phone Care Team Providers Care Lumber Chain Offbearer Name Role Phone Anuradha Jacques MD Primary Care Provider Allergies Active Allergy Reactions Criticality Noted Date [...] PM EDT Office Visit Gastroenterology - [address] [facility] [address] [facility] [address] [place] [phone] Halima Jerez PA Colon cancer screening (Primary Dx); Irritable bowel syndrome with constipation 10/22/2024 Telephone Gastroenterology - [address] [facility] [address] [facility] [address] [place] [address] Yanely Walker MD from Last 3 Months Surgical History Surgery Date Site/Laterality Comments STEREOTACTIC CORE BIOPSY 01/10/2008 Right BREAST LUMPECTOMY Right COLONOSCOPY 12/19/2019 5-yr recall COLONOSCOPY 06/12/2015 COLONOSCOPY 01/16/2012 TA x 1 COLONOSCOPY 10/23/2006 Medical History Medical History Date Comments BRCA1 gene mutation negative Ductal carcinoma in situ of breast Breast cancer ([facility] V24, [facility] V28) Family History Medical History Relation Name [...] Info) Description 02/13/2025 12:[address] [facility] [address] [place] [phone] Yanely Walker MD [address] [place] [address] 03/03/2025 9:30 AM EST [facility]ointment [facility] [address] [address] Health Maintenance Due Date Last [...] for biopsy. PQRI CPT II 3342F Code 95622, 58224 PQRI 225 CPT II 7025F TISSUE DENSITY: There are scattered areas of fibroglandular density. (BI-RADS category B) IMPRESSION: Benign. BI-RADS CATEGORY: 2 - BENIGN RECOMMENDATION: Screening bilateral mammogram is recommended in 1 year. Mammo Location: [facility], [facility], [address] [place] [address] -------- FINAL REPORT -------- Dictated By: Chriss Lagos Dictated Date: 03/01/2024 10:07 ET Assigned Physician: Chriss Lagos Reviewed and Electronically Signed By: Chriss Lagos Signed Date: 03/01/2024 10:13 ET Workstation ID: [id number] Transcribed By: Self Edit Transcribed Date: 03/01/2024 [...] and CC projection is performed in the SIPphoneographe 2000-D unit. Computer aided detection utilizing the [...] Prior studies most recently 02/27/2023 and most xwpsnarx22/19/2017. TECHNIQUE: Full-field digital mammography of the breasts bilaterallyconsisting of tomosynthesis in MLO and CC projection is performed in the[employer] 2000-D unit. Computer aided detection utilizing the [...] for biopsy. PQRI CPT II 3342F Code 25256, 37714 PQRI 225 CPT II 7025F TISSUE DENSITY: There are scattered areas of fibroglandular density.(BI-RADS category B) IMPRESSION: Benign. BI-RADS CATEGORY: 2 - BENIGN RECOMMENDATION: Screening bilateral mammogram is recommended in 1 year. Mammo Location: [facility], [facility], [address] [place] [address] -------- FINAL REPORT -------- Dictated By: Chriss Lagos Dictated Date: 03/01/2024 10:07 ET Assigned Physician: Chriss Lagos Reviewed and Electronically Signed By: Chriss Lagos Signed Date: 03/01/2024 10:13 ET Workstation ID: [id number] Transcribed By: Self Edit Transcribed Date: 03/01/2024 10:07 ET Dontae Nelson MD IMG BI PROCEDURES Final Result from Last 3 Months or Most Recently Relevant to Health Maintenance Insurance [facility] Care Teams Lumber Chain Offbearer Relationship Specialty Start Date End Date Anuradha Jacques MD [address] [place] [address] , [address] [facility] WILLIAM Amor PCP - General Internal Medicine 07/17/24
--- OUTSIDE RECORDS SUMMARY | 2024-12-13 07:44 | XMS_ITS | Patient Health Record ---
Author Organization [facility] Address [address] [facility] [place] [address] Care Team Providers Care Yarrow Gatherer Name Role Phone Iva Millan Unavailable [phone] Justin Joni Unavailable [phone] Allergies Allergen (clinical drug ingredient) Drug/Non Drug [...] Vaccine Route Administration Date Status Comme nts Influenza Unknown 08/14/2024 Administered COVID-19 Moderna Vaccine Unknown 02/08/2021 Administere d [...] Ordered Date Performed Result Body Sit e 42294-HNFDWGL NAIL, 6 OR MORE 05/20/2024 N/A 72648-YSDKJOJ NAIL, 6 OR MORE 10/07/2024 N/A Encounters Encounter Location Date [facility] [address] 01/17/2024 Joni Anderson Pain in left foot [...] Peroneal tendonitis of right lower leg M76.71 [facility] [address] 05/20/2024 Iva Millan Pain in right toe(s) M79.674 ; Onychomycosis B35.1 and Pain in left toe(s) M79.[address] [address] 10/07/2024 Iva Millan Pain in right toe(s) [...] X ray : Foot, right 3V 05/04/2021 30427-ATEWXBE NAIL, 6 OR MORE 05/20/2024 94249-EGRWTDZ NAIL, 6 OR MORE 10/07/2024 60002-Njky Destruction, -08/28/2015 69531-Gvma Destruction, 04-3010/09/2015 12976-Dazh Destruction, 04-3012/18/2015 71359-Vgdh Destruction, 04-3003/18/2016 96361-Jxcg Destruction, 04-3003/15/2011 19277-Xttv Destruction, 04-3007/12/2011 95634-Wxgf Destruction, 04-3010/25/2011 06182-Pvfw Destruction, 04-3003/06/2012 55939-Ardq Destruction, 04-3009/04/2012 47784-Gnfk Destruction, 04-3003/08/2013 32971-Vtkh Destruction, 04-3007/12/2013 07515-Okdm Destruction, 04-3010/29/2013 01656-Qgoktqcr Plate 02/20/2015 21823- Debride <25 sq cm 05/29/2015 69905- Debride <25 sq cm 08/28/2015 17610- Debride <25 sq cm 12/09/2014 Next Appt Details Provider Name:Iva Holloway siobhan, 02/05/2025 10:00:00 AM, [address] [place], [address], Insurance Providers Payer Name Payer Address Payer Phone Subscriber Number Group Number Insured Name Patient Relationship to Insured Coverage Start Date Coverage End Date [facility]) [address] [place] [address] [phone] [id number] Melonie Conde Self - patient is the insured 5 Medical (General) History Medical History History ICD Code measles hypertension chicken pox Pneumonia Ingrowing nail Ingrowing nail Vertigo Surgical History Surgery Date(Month/Year) lumpectomy 2007 hysteroscopy arthroscopic knee surgery oral surgery Infected molar 10/16/18 cataract surgery bilateral eyes 12/24/18, 01/07/19 Dental surgery 01/23/19 Hospitalization History Reason Date(Month/Year) [facility] [place]- fractured left wrist Arthroscopic knee surgery 03/13/17 Short stay surgery- [facility] 02/06/13 [facility]-D[facility]C 2010
[2024-12-13 13:05] LABS: Alanine Aminotransferase 20 U/L (0-31); Albumin Level 4.3 g/dL (3.5-5.0); Alkaline Phosphatase 102 U/L (39-117); Anion Gap 10 (12-20); Aspartate Amino Transferase 30 U/L (5-31); Blood Urea Nitrogen 13 mg/dL (9-16); Calcium 9.2 mg/dL (8.4-10.2); Carbon Dioxide 30 mmol/L (22-29); Chloride 106 mmol/L (96-108); Cholesterol 181 mg/dL (<200); Estimated Glomerular Filt Rate 60; HDL Cholesterol 55 mg/dL (>40); Potassium 4.2 mmol/L (3.3-5.1); Sodium 142 mmol/L (135-145); Total Protein 7.0 g/dL (6.5-8.0); Triglycerides 100 mg/dL (<150)
[2024-12-13 13:24] LABS: Thyroid Stimulating Hormone 3.12 uIU/mL (0.32-4.0)
== END 2024-12-13 07:41 | disposition home or self-care (01) ==
LOC: HO.10HDL 07:40
PROVIDERS: Visit Provider Internal Medicine
DX: I10 Essential (primary) hypertension (principal); E03.9 Hypothyroidism, unspecified; E78.5 Hyperlipidemia, unspecified
CPT/HCPCS: 36415; 80053; 80061; 84443

== ENCOUNTER 2024-12-18 16:17 | Outpatient (AMB) | payer OTHER, SELFPAY ==
--- OUTSIDE RECORDS SUMMARY | 2023-08-25 12:00 | XMS_ITS ---
Author Organization Maxim Loomis III, MD Address [address] [place] [address] Care Team Providers Care Soda Dialyzer Name Role Phone Dontae Nelson MD Primary Care Provider Maxim Paul [phone] Allergies Allergen (clinical drug ingredient) Drug/Non Drug [...] Date Provider Diagnosis Maxim Loomis III, MD [address] [place] [address] [place] [address] 08/25/2023 Maxim Loomis Encounter for screen ing [...] Next Appt Details Follow Up: As Scheduled, [place] son: OV Provider Name:Maxim Loomis, 05/13/2025 10:00:00 AM, [address] [place] [address] [address], [address], [place], [address], Progress Notes * Melonie LUCASDOB:1950 (72 yo F)Acc No.[id number]:08/25/2023 Progress Notes Patient: Melonie Leahy Provider: Solange Loomis MD :1950 A ge:72 Y S ex:Female Date:08/25/2023 Address:[address] [place] [address], [address], [id number] Pcp:Dontae Nelson MD Subjective: * Chief Complaints: [...] lesions. 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 She was born in [place], [place]. * Medications: T akingMeclizine HCl 50 [...] 08/25/2023 Generated for Anupama amaral/Robert/Murphyitting on: 0 12/18/2024 05:53 PM EDT History and Physical Notes * HPI (History of Present Illness) Category Sub-Category Detail Notes COVID-19 Screening Questions Have you had any new onset fever, chills, cough, congestion, sore throat, shortness of breath, muscle aches?: No Have you been exposed to the virus withi n the last 10 days?: No Have you travelled internationally in [facility] last 10 days?: No Have you been [...]
--- OUTSIDE RECORDS SUMMARY | 2024-05-13 06:30 | XMS_ITS ---
Author Organization Maxim Loomis III, MD Address [address] [place] [address] Care Team Providers Care Director Of Enrollment Name Role Phone Dontae Nelson MD Primary Care Provider Maxim Paul [phone] Allergies Allergen (clinical drug ingredient) Drug/Non Drug Allergy documented on EMR Reaction Allergy Type Onset Date Status ibuprofen Ibuprofen stomach upset Drug Allergy Act tomeka Zithromax diarrhea Drug Allergy Active clindamycin Clindamycin HCl anaphylaxis Drug Allergy Active aspirin Aspirin stomach upset Drug Allergy Act tomeka amoxicillin Amoxicillin diarrhea Drug Allergy Act tomeka REASON FOR VISIT Breast cancer, Hypertension Medications Medication SIG (Take, Route, Frequency, Duration) Notes Start Date End Date Status Levothyroxine Sodium 50 MCG 1 tablet in the morning on an empty stomach Orally Once a day Active Fluticasone Propionate 50 MCG/ACT 1 spray in each nostril Nasally Twice a day As needed As needed Active Claritin 10 MG 1 tablet Orally Once a day As needed As needed Active amLODIPine Besylate 5 MG 1 tablet Orally Once a day Active Atorvastatin Calcium 40 MG 1 tablet Oral ly Once a day Active Social History Tobacco Use: Social History Observation Description Date Details (start date - stop date) Never Smoker NA - NA Tobacco Use/Smoking Question Answer Notes Patient is a nonsmoker Additional Findings: Tobacco Non-User Aggressive non-smoker Problems Problem Type SNOMED Code ICD Code Onset Dates Problem Status W/U Status Risk Notes Problem [id number] Encounter for screening mammogram for malignant neoplasm of breast (Z12.31) Active confirmed Her annual mammogram has been ordered. Vital Signs Temperature 97.9 degrees Fahrenheit 05/13/19 25 Blood pressure systolic 133 mm Hg 05/13/19 25 Blood pressure diastolic 77 mm Hg 025 Heart Rate 80 /min 05/13/2024 Weight 140 lbs 05/13/2024 BMI 22.59 kg/m2 05/13/2024 Encounters Encounter Location Date Provider Diagnosis Maxim Loomis III, MD [address] [place] [address] [place] [address] 05/13/2024 Maxim Loomis Encounter for screen ing mammogram for malignant neoplasm of breast Z12.31 ; Breast cancer C50.919 ; HTN (hypertension) I10 and Other and unspecified hyperlipidemia E78.5 Assessments Encounter Date Diagnosis (ICD Code) Assessment Notes Treat ment Notes Treatment Clinical Notes 05/13/2024 Encounter for screening mammogram for malignant neoplasm of breast (ICD-10 - Z12.31) Her annual mammogram has been ordered. 05/13/2024 Breast cancer (ICD-1 0 - C50.919) There is no sign of a new primary or recurrence. Is no sign of any other malignancy. There have been no cases of cancer in her family. Since her last visit. Surveillance was continued. 05/13/2024 HTN (hypertension) (ICD-10 - I10) Her blood pressure today is unremarkable. No change in her therapy is needed. 05/13/2024 Other and unspecifie d hyperlipidemia (ICD-10 - E78.5) I recommended that she have periodic determination of her lipid values and maintain a normal weight and consume a diet low in animal fat. I recommended that she have her primary care physician obtain her lipids periodically. Plan Of Treatment Medication Medication Name Sig Start Date Stop Date Notes Levothyroxine Sodium 50 MCG 1 tablet in the morning on an empty stomach Orally Once a day Fluticasone Propionate 50 MCG/ACT 1 spray in each nostril Nasally Twice a day As needed Claritin 10 MG 1 tablet Orally Once a day As needed amLODIPine Besylate 5 MG 1 tablet Orally Once a day Atorvastatin Calcium 40 MG 1 tablet Oral ly Once a day Next Appt Details Follow Up: 1 Year, Reason: O V Provider Name:Maxim Loomis, 05/13/2025 10:00:00 AM, [address] [place] [address] [address], [place], [address], Progress Notes * Melonie LUCASDOB:1950 (73 yo F)Acc No.[id number]:05/13/2024 Progress Notes Patient: Melonie JOYNER Provider: Solange Loomis MD :1950 A ge:73 Y S ex:Female Date:05/13/2024 Address:[address] [place] [address], [address], [id number] Pcp:Dontae Nelson MD Subjective: * Chief Complaints: * B reast cancerHypertension * HPI: C OVID-19 Screening: She returns for a periodic scheduled visit follow a history of breast cancer. She has had no findings on breast self-examination. She is up-to-date with mammography. There have been no new cases of breast cancer or ovarian cancer in her family.? Her examination today was unremarkable. Annual followup was scheduled. Questions H ave you had any new onset fever, chills, cough, congestion, sore throat, shortness of breath, muscle aches? N o * ROS: G eneral/Constitutional: pain [...] have been noted. G enitourinary: Frequent urination a t night. M usculoskeletal: Muscle aches d enies. P ainful joints d enies. S ciatica d enies. W eakness d enies. S kin: Itching d enies. R daphney d enies. S kin lesion(s)?denies. N eurologic: Difficulty speaking d enies. 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 She was born in [place], [place]. * Medications: T akingClaritin 10 MG Tablet 1 tablet Orally Once a day As needed, Notes to Pharmacist: As neededFluticasone Propionate 50 MCG/ACT Suspension 1 spray in each nostril Nasally Twice a day As needed, Notes to Pharmacist: As neededLevothyroxine Sodium 50 MCG Tablet 1 tablet in the morning on an empty stomach Orally Once a day Atorvastatin Calcium 40 MG Tablet 1 tablet Orally Once a day amLODIPine Besylate 5 MG Tablet 1 tablet Orally Once a day Taking Claritin 10 MG Tablet 1 tablet Orally Once a day As needed, Notes to Pharmacist: As neededTaking Fluticasone Propionate 50 MCG/ACT Suspension 1 spray in each nostril Nasally Twice a day As needed, Notes to Pharmacist: As neededTaking Levothyroxine Sodium 50 MCG Tablet 1 tablet in the morning on an empty stomach Orally Once a day Taking Atorvastatin Calcium 40 MG Tablet 1 tablet Orally Once a day Taking amLODIPine Besylate 5 MG Tablet 1 tablet Orally Once a day DiscontinuedTolnaftate , Notes to Pharmacist: As neededMeclizine HCl 50 MG Tablet 1 tablet as needed Orally Three times a day Medication List reviewed and reconciled with the patientDiscontinued Tolnaftate , Notes to Pharmacist: As neededDiscontinued Meclizine HCl 50 MG Tablet 1 tablet as needed Orally Three times a day Medication List reviewed and reconciled with the patient * Allergies: Z ithromax: diarrheaAspirin: stomach upsetAmoxicillin: diarrheaClindamycin HCl: anaphylaxisIbuprofen: stomach upsetno[Allergies Verified] Objective: * Vitals: W t:140, BMI:22.59, BP:133/77, HR:80, Temp:97.9, Ht-cm: 167.64, Wt-k.5. * Examination: G eneral Examination: GENERAL APPEARANCE: p leasant, well nourished, well developed, in no acute distress, calm and relaxed, woman. HEAD: a traumatic, normocephalic. EYES: e candelario, perrla, anicteric, conjugate. EARS: n ormal. NOSE: s eptum intact. ORAL CAVITY: n ormal, unremarkable. NECK/THYROID: n o jugular venous distention, no carotid bruit, thyroid normal. LYMPH NODES: n o enlarged lymph nodes,spleen normal. SKIN: n o suspicious lesions, anicteric. HEART: n o clicks, gallops, murmurs, or rubs, regular rhythm, S1, S2 normal, no s3, or vascular bruits. LUNGS: c lear to auscultation . BREASTS: n o masses palpable bilaterally, symmetrical, nontender, no drainage, no dimpling. ABDOMEN: b owel sounds normal, no ascites, no organomegaly, no mass. RECTAL EXAM: n ot examined. MUSCULOSKELETAL: e xtremities unremarkable, no clubbing, cyanosis or edema. PERIPHERAL PULSES: n ormal. NEUROLOGIC: a lert and oriented, cranial nerves 2-12 grossly intact, deep tendon reflexes 2+ symmetrical, motor strength normal upper and lower extremities, sensory exam intact. PSYCH: a lert, oriented. Assessment: * Assessment: 1. B reast cancer - C50.919 (Primary) N otes :There is no sign of a new primary or recurrence. Is no sign of any other malignancy. There have been no cases of cancer in her family. Since her last visit. Surveillance was continued. 2 . E ncounter for screening mammogram for malignant neoplasm of breast - Z12.31 N otes :Her annual mammogram has been ordered. 3 . H TN (hypertension) - I10 N otes :Her blood pressure today is unremarkable. No change in her therapy is needed. 4 . O ther and unspecified hyperlipidemia - E78.5 N otes :I recommended that she have periodic determination of her lipid values and maintain a normal weight and consume a diet low in animal fat. I recommended that she have her primary care physician obtain her lipids periodically. Plan: * Treatment: * Procedure Codes: * Follow Up: 1 Year (Reason: OV) * Images: * Sign off status: Completed true * Provider: Solange Loomis MD Date: 0 05/13/2024 Generated for Anupama amaral/Robert/Murphyitting on: 0 12/18/2024 05:53 PM EDT History and Physical Notes * HPI (History of Present Illness) Category Sub-Category Detail Notes COVID-19 Screening Questions Have you had any new onset fever, chills, cough, congestion, sore throat, shortness of breath, muscle aches?: No Examination Category Sub-Category Detail Notes General [...] normal BREASTS: no masses palpable b ilaterally, symmetrical, nontender, no drainage, no dimpling MUSCULOSKELETAL: extremities unremark able, no clubbing, cyanosis or edema LYMPH NODES: no enlarged lymph no amanda,spleen normal RECTAL EXAM: not examined PSYCH: alert, oriented ORAL CAVITY: normal, unremarkable
[2024-12-18 16:19] VITALS: BP 138/68; PULSE 98; RESP 18; TEMP 35.9; O2SAT 98; BMI 22.2
--- NOTE | 2024-12-18 16:19 | MHC.PC.OV ---
Vital Signs 12/18/24 16:19 Height 5 ft 5.5 in Weight 135 lb 8 oz BMI 22.2 BP 138/68 Blood Pressure Location Lt brachial Position Sitting Respiration 18 Pulse 98 Pulse Source Pulse Oximeter Temp 96.6 F L Temp Source Temporal Artery Scan Pulse Oximetry (%) 98 Oxygen Delivery Method Room Air Intake Visit Reasons: bp Manager Generation Required: No Accompanied by: Self / Same As Patient Allergies amoxicillin (AMOXICILLIN) Allergy (Mild, Verified 12/18/24 16:30) DIARRHEA aspirin (Aspirin) Allergy (Mild, Verified 12/18/24 16:30) UPSET STOMACH azithromycin (From Zithromax) Adverse Reaction (Mild, Verified 12/18/24 16:30) DIARRHEA ibuprofen (From ADVIL) Adverse Reaction (Mild, Verified 12/18/24 16:30) GI UPSET oxycodone (From PERCOCET) Adverse Reaction (Mild, Verified 12/18/24 16:30) CAUSES LOOPINESS Medication List - Last Reconciled 12/18/24 by Anuradha Jacques MD amlodipine 5 mg PO DAILY atorvastatin 40 mg PO DAILY fluticasone propionate 50 mcg/actuation 1 spray intranasal DAILY levothyroxine 50 mcg PO DAILY meclizine 25 mg PO QID PRN zolpidem (Ambien) 5 mg PO BEDTIME PRN Tobacco use date assessed: 12/18/24 Fall risk assessment: No Falls in past year Last assessed Fall Risk: 12/18/24 Dental Screening Dental Screen Date: 12/18/24 Did you have a dental visit in the last 12 months?: Yes Did you have a dental problem in the last 6 months where you did not have access to dental care?: No Was dental information given to patient?: Patient has dentist HPI HPI Comments History of Present Illness Details This is a 73-year-old female with hypertension, hyperlipidemia and hypothyroidism that comes today complaining of nasal congestion of white mucus involving the ears that has been present for over a week. No fever or cough. Try Claritin [id number] but was sleepy. Will send Flonase twice a day. Also for years I will send Debrox to help her out and she already has an ENT referral but no appointment yet. Blood pressure stable. Labs were discussed cholesterol well controlled. TSH normal. [facility] Medical History Cerumen impaction Allergic rhinitis Fibroid Hydronephrosis Cyst of kidney, acquired Tendinitis involving right hip abductors Hypothyroidism Surgical History History of dental surgery History of cataract surgery History of knee surgery History of renal stent History of hysteroscopy History of lumpectomy of right breast Family History Father Diabetes CVD (cardiovascular disease) Hypertension Heart disease Mother Breast cancer Colon cancer Sister No problems noted. Family/Other Ovarian cancer Social History Housing: House Alcohol intake: current Alcohol intake frequency: holidays/special occasions only Patient Tobacco Use Status: Never used Tobacco Tobacco use type: Cigarette e-Cigarette/Vaping Use: Never Used Second Hand Smoke Exposure: No Advance Directives Date on File: 01/22/20 service: No Current occupational status: retired Cognitive needs: No Hearing needs: No Vision needs: Yes (Glasses) Questionnaire PHQ-9 Over the last 2 weeks, how often have you been bothered by any of the following problems? 1. Little interest or pleasure in doing things: not at all 2. Feeling down, depressed, or hopeless: not at all 3. Trouble falling or staying asleep, or sleeping too much: not at all 4. Feeling tired or having little energy: not at all 5. Poor appetite or overeating: not at all 6. Feeling bad about yourself - or that you are a failure or have let yourself or your family down: not at all 7. Trouble concentrating on things, such as reading the newspaper or watching television: not at all 8. Moving or speaking so slowly that other people could have noticed. Or the opposite - being so fidgety or restless that you have been moving around a lot more than usual: not at all 9. Thoughts that you would be better off or of hurting yourself in some way: not at all Total score: 0 Depression Screening Interpretation: Negative Depression Screening Done: Yes 72530 - PHQ-9 Billing: Yes Source: Developed by Drs. Maxim L. SujathaAileen mock, Bang Lawton and colleagues, with an educational belle from [employer]. Thrive Questionnaire Date Thrive assessed: 08/14/24 I am a: Patient What is your living situation today?: I have a steady place to live Within the past 12 months, did the food you bought not last and you didn't have the money to get more?: Never true Within the past 12 months, did you worry whether your food would run out before you got money to buy more?: Never true Do you have trouble paying for medicines?: No Do you have trouble getting transportation to medical appointments?: No Do you have trouble paying your heating and electricity bill?: No Do you have trouble taking care of your child, family member or friend?: No Do you have trouble with day-to-day activities such as bathing, preparing meals, shopping, managing finances, etc.?: No Are you currently unemployed and looking for a job?: No Are you interested in more education?: I choose not to answer this question Please select the resources that you would like help with: None Currently or been in a relationship where the following occur: No concerns reported THRIVE Score: 0 AUDIT C Alcohol Use Questionnaire (AUDIT-C) 1. How often do you have a drink containing alcohol?: Monthly or less 2. How many drinks containing alcohol do you have on a typical day when you are drinking?: 1 or 2 3. How often do you have six or more drinks on one occasion?: Never Total Score: 1 Score Reviewed/Action Taken: No TRICIA-7 AMB Questionnaire TRICIA-7 Date TRICIA - 7 assessed: 12/18/24 Feeling nervous, anxious, or on edge: 2 = More than half the days Not being able to stop or control worryin = Not at all Worrying too much about different things: 0 = Not at all Trouble relaxin = Not at all Being so restless that it is hard to sit still: 0 = Not at all Becoming easily annoyed or irritable: 0 = Not at all Feeling afraid as if something awful might happen: 0 = Not at all Total TRICIA-7 score (0-4 normal; 5-9 mild; 10-14 moderate; 15-21 severe): 2 Source: Developed by Aileen Delaney Kurt Kroenke and colleagues, with an educational belle from [employer]. TRICIA-7 Assessment Billing TRICIA-7 Assessment Tool: TRICIA-7 Assessment 70056 Review of Systems Const All systems reviewed & are unremarkable except as noted in HPI and below Card Denies chest pain at rest, Denies chest pain with activity, Denies edema, Denies irregular heart rhythm, Denies claudication, Denies orthopnea, Denies paroxysmal nocturnal dyspnea and Denies slow heart rate Physical exam (Primary Care) Vital Signs: Last Vital Signs Temp 96.6 F L 12/18/24 16:19 Pulse 98 12/18/24 16:19 Resp 18 12/18/24 16:19 BP 138/68 12/18/24 16:19 Pulse Ox 98 12/18/24 16:19 Oxygen Delivery Method Room Air 12/18/24 16:19 BMI result Body Mass Index 22.2 Tobacco/Smoking Status: Tobacco use Status Tobacco use date assessed 12/18/24 12/18/24 16:28 Patient Tobacco Use Status Never used Tobacco 12/18/24 16:28 Tobacco use type Cigarette 12/18/24 16:28 e-Cigarette/Vaping Use Never Used 12/18/24 16:28 PHQ-9: PHQ-9 Score PHQ-9: Total score 0 12/18/24 16:28 Depression Screening Interpretation: Negative Thrive Assessment: Date of Thrive Assessment Date Thrive assessed 08/14/24 12/18/24 16:28 Currently or been in a relationship where the following occur: No concerns reported Resp Effort & Inspection: normal respiratory effort Auscultation: clear to auscultation bilaterally Cardio Jugular venous distension: no JVD Rate: regular rate Rhythm: regular rhythm Heart sounds: S1 normal heart sound present and S2 normal heart sound present Extrem General: Yes full ROM Coding Level of Care Code Est Pt Level 4 (65584) Complex EM visit Add On G2211 Diagnoses Hypertension I10 Hyperlipidemia E78.5 Hypothyroidism E03.9 Seasonal allergic rhinitis due to other allergic trigger J30.89 Allergic rhinitis trigger: other Allergic rhinitis seasonality: seasonal Additional Codes TRICIA-7 Assessment Billing - TRICIA-7 Assessment Tool: TRICIA-7 Assessment 46886 ([id number]) PHQ-9 - 72475 - PHQ-9 Billing: Yes ([id number]) Time Spent (min) 21 Assessment & Plan Assessment & Plan (1) Hypertension: Code(s): I10 - Essential (primary) hypertension Category: Medical (2) Hyperlipidemia: Code(s): E78.5 - Hyperlipidemia, unspecified Category: Medical (3) Hypothyroidism: Code(s): E03.9 - Hypothyroidism, unspecified Category: Medical (4) Allergic rhinitis: Code(s): J30.9 - Allergic rhinitis, unspecified Category: Medical Qualifiers: Allergic rhinitis trigger: other Allergic rhinitis seasonality: seasonal Qualified Code(s): J30.89 - Other allergic rhinitis Plan Continue current meds. Start Flonase. Start Debrox. Medications: New carbamide peroxide 6.5% (Debrox) 5 drps otic (ear) left DAILY 15 mL 0RF 4 days Refilled fluticasone propionate 50 mcg/actuation 1 spray intranasal DAILY 16 grams 8RF
--- OUTSIDE RECORDS SUMMARY | 2024-12-18 17:54 | XMS_ITS | Clinical Summary ---
Author Organization [facility] Address [address] [place] [address] Phone Care Team Providers Care Cat Wagon Operator Name Role Phone Anuradha Jacques MD Primary Care Provider [phone] Allergies Active Allergy Reactions Criticality Noted Date [...] PM EDT Office Visit Gastroenterology - [address] [facility] [address] [facility] [address] [place] [phone] Halima Jerez PA Colon cancer screening (Primary Dx); Irritable bowel syndrome with constipation 10/22/2024 Telephone Gastroenterology - [address] [facility] [address] [facility] [address] [place] [phone] Yanely Walker MD from Last 3 Months Surgical History Surgery Date Site/Laterality Comments STEREOTACTIC CORE BIOPSY 01/10/2008 Right BREAST LUMPECTOMY Right COLONOSCOPY 12/19/2019 5-yr recall COLONOSCOPY 06/12/2015 COLONOSCOPY 01/16/2012 TA x 1 COLONOSCOPY 10/23/2006 Medical History Medical History Date Comments BRCA1 gene mutation negative Ductal carcinoma in situ of breast Breast cancer ([facility] V24, [facility] V28) Family History Medical History [...] Info) Description 02/13/2025 12:30 PM EDT Appointment [facility] Endoscopy [address] [place] [phone] Yanely Walker MD [address] [place] [phone] 03/03/2025 9:30 AM EST [facility]ointment [facility] [address] [address] Health Maintenance Due Date Last Done Comments Cholesterol Screening (Lipid Panel) 03/20/2022 Colorectal Cancer Screening: Colonoscopy 03/20/2022 Falls Risk Assessment 03/20/2022 Hepatitis C Screening 03/20/2022 Osteoporosis Screening (Bone Density Screening) 03/20/2022 Social Influencers of Health Screening 03/20/2022 Depression Screening 04/17/2024 Hypertension/CHF/CAD Annual BMP Blood Test 10/23/2024 COVID-19 Vaccine (8 - Moderna risk season) 2024 01/23/2024, 01/12/2023, 02/14/2022, Additional history exists Influenza Vaccine (#1) 2024 , 01/16/2024, 01/19/2023, [...] for biopsy. PQRI CPT II 3342F Code 80996, 84378 PQRI 225 CPT II 7025F TISSUE DENSITY: There are scattered areas of fibroglandular density. (BI-RADS category B) IMPRESSION: Benign. BI-RADS CATEGORY: 2 - BENIGN RECOMMENDATION: Screening bilateral mammogram is recommended in 1 year. Mammo Location: [facility], [address] [place] [address] -------- FINAL REPORT -------- Dictated By: Chriss Lagos Dictated Date: 03/01/2024 10:07 ET Assigned Physician: Chriss Lagos Reviewed and Electronically Signed By: Chriss Lagos Signed Date: 03/01/2024 10:13 ET Workstation ID: [id number] Transcribed By: Self Edit Transcribed Date: 03/01/2024 [...] and CC projection is performed in the [employer] 2000-D unit. Computer aided detection utilizing the [...] Prior studies most recently 02/27/2023 and most yuwaxbtz07/19/2017. TECHNIQUE: Full-field digital mammography of the breasts bilaterallyconsisting of tomosynthesis in MLO and CC projection is performed in the[employer] 2000-D unit. Computer aided detection utilizing the [...] for biopsy. PQRI CPT II 3342F Code 16037, 00478 PQRI 225 CPT II 7025F TISSUE DENSITY: There are scattered areas of fibroglandular density.(BI-RADS category B) IMPRESSION: Benign. BI-RADS CATEGORY: 2 - BENIGN RECOMMENDATION: Screening bilateral mammogram is recommended in 1 year. Mammo Location: [facility], [facility], [address] [place] [address] -------- FINAL REPORT -------- Dictated By: Chriss Lagos Dictated Date: 03/01/2024 10:07 ET Assigned Physician: Chriss Lagos Reviewed and Electronically Signed By: Chriss Lagos Signed Date: 03/01/2024 10:13 ET Workstation ID: [id number] Transcribed By: Self Edit Transcribed Date: 03/01/2024 10:07 ET Dontae Nelson MD IMG BI PROCEDURES Final Result from Last 3 Months or Most Recently Relevant to Health Maintenance Insurance [facility] Care Teams Cat Wagon Operator Relationship Specialty Start Date End Date Anuradha Jacques MD [address] [place] [address] , [address] [facility] D[facility] WILLIAM Amor PCP - General Internal Medicine 07/17/24
--- OUTSIDE RECORDS SUMMARY | 2024-12-18 17:54 | XMS_ITS | Encounter Summary ---
Author Organization [facility] Address [address] [facility] [address] [place] [address] Phone Care Team Providers Care Clothespin Machine Operator Name Role Phone Dontae Nelson MD Primary Care Provider [phone] Encounter Details Date Type Department Care Team (Late st Contact Info) Description 07/23/2021 Procedure Pass [facility], Ct Scan - [facility] [address] [place] [address] Social History Tobacco Use Types Packs/Day Years [...] 1:58 PM EDT Linh Hadley RN * [place] Suicide Severity Rating Scale (Screener/Recent Self-Report) [...] on filedocumented in this encounter Care Teams Clothespin Machine Operator Relationship Specialty Start Date End Date Dontae Nelson MD [address] [place] [address] [place] [address] PCP - General Internal Medicine 07/23/21 documented as of this encounter Additional Source Comments The information contained in this document represents components of the legal health record. It is not the complete legal health record.[facility]
--- OUTSIDE RECORDS SUMMARY | 2024-12-18 17:54 | XMS_ITS | Encounter Summary ---
Author Organization [facility] Address [address] [facility] [address] [place] [address] Phone Care Team Providers Care Tractor Sweeper Operator Name Role Phone Dontae Nelson MD Primary Care Provider [phone] Encounter Details Date Type Department Care Team (Late st Contact Info) Description 07/23/2021 Procedure Pass [facility], Ct Scan - [facility] [address] [place] [address] Social History Tobacco Use Types Packs/Day Years [...] 1:58 PM EDT Linh Hadley RN * [place] Suicide Severity Rating Scale (Screener/Recent Self-Report) Question [...] on filedocumented in this encounter Care Teams Tractor Sweeper Operator Relationship Specialty Start Date End Date Dontae Nelson MD [address] [place] [address] [place] [address] PCP - General Internal Medicine 07/23/21 documented as of this encounter Additional Source Comments The information contained in this document represents components of the legal health record. It is not the complete legal health record.[facility]
--- OUTSIDE RECORDS SUMMARY | 2024-12-18 17:54 | XMS_ITS | Patient Health Record ---
[facility] Address [address] [place] [address] Care Team Providers Care [facility] Name Role Phone Iva Millan Unavailable [phone] Justin Joni Unavailable [phone] Allergies Allergen (clinical drug ingredient) Drug/Non Drug [...] Ordered Date Performed Result Body Sit e 45843-UHZMQAH NAIL, 6 OR MORE 05/20/2024 N/A 53149-TUIFCIO NAIL, 6 OR MORE 10/07/2024 N/A Encounters Encounter Location Date Provider [facility] [address] 01/17/2024 Joni Anderson Pain in left foot [...] Peroneal tendonitis of right lower leg M76.[address] [facility] [address] 05/20/2024 Iva Millan Pain in right toe(s) M79.674 ; Onychomycosis B35.1 and Pain in left toe(s) M79.[address] [address] 10/07/2024 Iva Millan Pain in right toe(s) [...] X ray : Foot, right 3V 05/04/2021 48730-YHLBRZU NAIL, 6 OR MORE 05/20/2024 93274-BUPOJYK NAIL, 6 OR MORE 10/07/2024 38518-Dewc Destruction, -08/28/2015 16432-Zjtj Destruction, 04-3010/09/2015 93997-Jsgg Destruction, 04-3012/18/2015 07725-Muru Destruction, 04-3003/18/2016 51014-Flcd Destruction, 04-3003/15/2011 75969-Ipvz Destruction, 04-3007/12/2011 94346-Hvnk Destruction, 04-3010/25/2011 87792-Eume Destruction, 04-3003/06/2012 92543-Ykrp Destruction, 04-3009/04/2012 66358-Ublm Destruction, 04-3003/08/2013 03448-Cnwl Destruction, 04-3007/12/2013 16515-Jnjy Destruction, 04-3010/29/2013 70556-Jreybezn Plate 02/20/2015 63492- Debride <25 sq cm 05/29/2015 16037- Debride <25 sq cm 08/28/2015 82101- Debride <25 sq cm 12/09/2014 Next Appt Details Provider Name:Iva Holloway siobhan, 02/05/2025 10:00:00 AM, [address] [place], [address], Insurance Providers Payer Name Payer Address Payer Phone Subscriber Number Group Number Insured Name Patient Relationship to Insured Coverage Start Date Coverage End Date [facility]) [address] [place] [id number] Melonie Conde Self - patient is the insured 5 Medical (General) History Medical History History ICD Code measles hypertension chicken pox Pneumonia Ingrowing nail Ingrowing nail Vertigo Surgical History Surgery Date(Month/Year) lumpectomy 2007 hysteroscopy arthroscopic knee surgery oral surgery Infected molar 10/16/18 cataract surgery bilateral eyes 12/24/18, 01/07/19 Dental surgery 01/23/19 Hospitalization History Reason Date(Month/Year) Matson Rueter- fractured left wrist Arthroscopic knee surgery 03/13/17 Short stay surgery- [facility] 02/06/13 [facility] ctr-D&C 2010
--- OUTSIDE RECORDS SUMMARY | 2024-12-18 17:54 | XMS_ITS | Clinical Summary ---
Author Organization [facility] Address [address] [facility] [address] [place] [address] Phone Care Team Providers Care Channeler Insole Name Role Phone Dontae Nelson MD Primary Care Provider [phone] Allergies Active Allergy Reactions Criticality Noted Date [...] Devices Not on file Insurance [address] [place] [address] [employer]DEMNITY [address] [place] [address] [employer] [address] [place] [address] [employer]OTAL [employer]DEMNITY [address] [place] [address] [employer]OTAL [employer]DEMNITY [address] [place] [address] [employer]OTAL [employer]DEMNITY [address] [place] [address] [employer]OTAL [employer]DEMNITY [address] [place] [address] [employer]DEMNITY [address] [facility] [place] [address] [employer]OTAL [employer]DEMNITY [address] [place] [address] [employer] Care Teams Channeler Insole Relationship Specialty Start Date End Date Dontae Nelson MD [address] [place] [address] [place] [address] PCP - General Internal Medicine 07/23/21 Additional Source Comments The information contained in this document represents components of the legal health record. It is not the complete legal health record.[facility]
--- OUTSIDE RECORDS SUMMARY | 2024-12-18 17:54 | XMS_ITS | Patient Health Record ---
Author Organization Maxim Loomis III, MD Address [address] [facility] [address] [place] [address] Care Team Providers Care Mailing Clerk Name Role Phone Dontae Nelson MD Primary Care Provider [facility] [phone] Allergies Allergen (clinical drug ingredient) Drug/Non Drug [...] Problem Status W/U Status Risk Notes Problem 322092199 Breast cancer (C50.919) Active confirmed There is no sign of a new primary or recurrence. Is no sign of any other malignancy. There have been no cases of cancer in her family. Since her last visit. Surveillance was continued. Problem [id number] Encounter for screening mammogram for malignant neoplasm of breast (Z12.31) Active confirmed Her annual mammogram has been ordered. Problem 96402106 HTN (hypertension) (I10) Active confirmed Her blood pressure today is unremarkable. No change in her therapy is needed. Problem 77505995 Other and unspecified hyperlipidemia (E78.5) Active confirmed [...] Date Provider Diagnosis Maxim Loomis III, MD [address] [place] [address] [place] [address] 05/13/2024 Maxim Loomis Encounter for screen ing [...] Details Provider Name:Maxim Loomis, 05/13/2025 10:00:00 AM, [address] [place] [address] , [address], [place], [address], Insurance Providers Payer Name Payer Address Payer Phone Subscriber Number Group Number Insured Name Patient Relationship to Insured Coverage Start Date Coverage End Date [facility] Insurance ([place]) [address] [place] [phone] [id number] Melonie Lucas Self - patient is the insured Medical (General) History Medical History History ICD Code hypertension hyperlipidemia 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
== END 2024-12-18 16:48 | disposition home or self-care (01) ==
LOC: HO.HMCH 16:18
PROVIDERS: PCP Internal Medicine; Visit Provider Internal Medicine
DX: I10 Essential (primary) hypertension (principal); E78.5 Hyperlipidemia, unspecified; E03.9 Hypothyroidism, unspecified; J30.89 Other allergic rhinitis

== ENCOUNTER → 2024-12-18 16:17 | Outpatient (BNVA) | payer OTHER, SELFPAY | PROVIDERS: PCP Internal Medicine; Visit Provider Internal Medicine | DX: I10 Essential (primary) hypertension (principal); E78.5 Hyperlipidemia, unspecified; E03.9 Hypothyroidism, unspecified; J30.89 Other allergic rhinitis | CPT/HCPCS: 96127 ==